=== PATIENT | female | born 1985 | race Caucasian/White ===

== ENCOUNTER → 2018-02-20 09:43 | Outpatient (CLI) | payer OTHER, SELFPAY ==
[2018-02-20 10:08] LABS: Hematocrit 40.4 % (37-47); Hemoglobin 13.5 g/dl (12.0-15.0); Mean Corp Hgb Conc 33.4 g/gl (32-36); Mean Corpuscular Hgb 30.7 pg (27.0-32.0); Mean Corpuscular Volume 91.8 fL (81-99); Mean Platelet Vol. 9.9 fl (6.2-12.0); Platelet Count 195 K/mm3 (150-450); RBC Distribution Width CV 12.4 % (11.6-14.6); White Blood Count 6.5 K/mm3 (4.4-11.0)
[2018-02-20 10:10] LABS: Scan Indicated on CBC? Y/N NO
[2018-02-20 10:52] LABS: AST(SGOT) 19 U/L (15-37); Alanine Aminotransfer ALT/SGPT 21 U/L (13-56); Albumin, Serum 4.2 g/dL (3.2-5.0); Alkaline Phosphatase 72 U/L (45-117); Anion Gap 8 (5-15); BUN 10 mg/dL (7-18); BUN/Creat Ratio 12.3 RATIO (10-20); Calcium,Total 9.2 mg/dL (8.5-10.1); Chloride 108 mmol/L (98-107); Creatinine, Serum 0.81 mg/dL (0.55-1.02); EST Glomerular Filtration Rate 86 mL/min (>60); Est Glom Filt Rate - Afr Amer 104 mL/min (>60); Glucose 76 mg/dL (74-106); Magnesium 2.2 mg/dL (1.6-2.6); Phosphorus 3.6 mg/dL (2.5-4.9); Potassium 4.4 mmol/L (3.5-5.1); Protein, Total 8.2 g/dL (6.4-8.2); Sodium Level 141 mmol/L (136-145)
== END ==
PROVIDERS: Visit Provider Nurse Practitioner Acute Care
DX: R52 Pain, unspecified (principal); R82.99 Other abnormal findings in urine
CPT/HCPCS: 36415; 80053; 82140; 83735; 84100; 85027

== ENCOUNTER 2018-05-26 13:00 | Outpatient (RCR) | payer OTHER, SELFPAY ==
--- NOTE | 2018-06-04 14:37 | HP.PTEVAL ---
Patient's Visit Information JAMMIE GONZALEZ is a 32 year old F referred to Physical Therapy by PABLO Saunders with a diagnosis of Migrains. Date of Evaluation: 04/23/18 Physical Therapist: Aneesh Oliver - Visit Plan Frequency: 1-2x /Week Duration: 4-6 Weeks Plan: Start with postural education, DN to cervical spine and levator scapulea, cervical retraction, manual PT. Progress to postural stability exercises as tolerated. - Subjective Subjective: Pt. is here today for her initial evaluation with diagnosis of migrains. Pt. reports having migrains for years. She has relief with some medications, but does not take her symptoms away. Pt. reports living a highly stressful lfie with her kids and is now taking care of her sister in laws children as she is in assisted. Pt. reprots having migrains ~5 per month, but has even more frequent HAs. SHe reports pain is usually temporal and at anterior aspect of forehead. Pt. has not trialed any exercises for her symptoms. Pt. reports no neck or shoulder pain currently. Pt. does not have double or blurred vision. Pt. is hopeful to reduce symptoms in order to get back to taking care of her children without limitations. - Pain BARTH Pain Intensity (Out of 10): 8 Pain Intensity Range: 0, 8 Comment: Temporalis region on L side - Objective POSTURE: Pt. has rounded shoulders, FH posture. increased lower cervical flexion, upper cervical extension. PALPATION: Pt. has increased tenderness at bilatearl suboccipital muscles, bilateral levator scapulea, and bilateral cervical erector spine. Pt. has pain along cervicogenic BARTH patterns. NEURO: all intact no issues. Normal DTR bilateral UEs. ROM: CERVICAL SPINE: flexion nil loss increase NW, ext min loss increase NW, rotation nil loss NE, SB nil loss NE. B SHOULDERS: full motions without increase in symptoms. MMT: Pt. has full strength without increase in symptoms of B UEs. Pt. has 5/5 cervical isometrics. - Special Tests C/S Radiculapathy - Left Spurlings: Negative C/S Radiculapathy - Right Spurlings: Negative C/S Radiculapathy - Left Cervical distraction: Negative C/S Radiculapathy - Right Cervical distraction: Negative C/S Radiculapathy - Left Relief test: Positive C/S Radiculapathy - Right Relief test: Positive Sharp Radha: Negative Vertebral Artery Test: Negative Alar Ligament Test: Negative - Goals Goal 1:: Pt. to be I with HEP. Goal Time Frame: 4-6 Weeks Goal 2:: Pt. to have decreased frequency of BARTH to x1-2 per week. Goal Time Frame: 4-6 Weeks Goal 3:: Pt. to have reduced intensity of BARTH to less than 3/10. Goal Time Frame: 4-6 Weeks Goal 4:: Pt. to dmeonstrate improved posture throughout PT session indicating increased postural awareness. - Rehabilitation Potential Physical Therapy Diagnosis: Pt. has signs and symptoms consistent with migrains possible from poor posture, suboccipital tightness resulting in cervicogenic symptoms. Pt. has increased lower cervical flexion, upper cervical extension and would benefit from muscle tension reduction, and suboccipital tightness in order to reduce BARTH symptoms. Rehabilitation Potential: Good - Anticipated Interventions Patient/Client Instruction: Educate patient on: Condition, Plan of Care, Risk Factors, Benefits of Fitness Program For the Purpose of:: To reduce risk of recurrence, To improve safety, To improve health and function, To foster healthy habits, To improve self management, To improve ability to perform tasks related to life management Therapeutic Exercise to Include: Strength training, Power training, Body mechanics, Postural training, Flexibilty training, Passive ROM, Active ROM, Scapular Strength/Stabilization For the Purpose of:: To decrease pain, To decrease swelling/inflammation, To increase ROM, To improve muscle performance and motor function, To improve gait and locomotor functions, To improve health of tissue, To decrease soft tissue restriction, To increase flexibility/ROM Manual Therapy Techniques to Include: Trigger point massage, Mobilization, Passive ROM, Functional dry needling, Soft tissue mobilization For the Purpose of:: To decrease pain, To decrease swelling/inflammation, To increase ROM, To improve nutrient delivery to tissue, To improve health of tissue, To decrease soft tissue restriction, To increase flexibility/ROM Thank you for the opportunity to evaluate your patient. For Medicare and Medicare HMO plans, please review the plan of care and approve it. It will need to be FAXED BACK to us at [phone] for Medicare purposes. Please let me know if there are questions or concerns regarding this plan of care. Physician Signature: Date:
--- NOTE | 2018-10-20 17:10 | HP.PT.NRP ---
HP - Discharge Summary (1) - Patient Information JAMMIE GONZALEZ was seen in my office for initial evaluation on 04/23/18. The following Plan of Care was established for this patient: Initial Frequency: 1-2x /Week Initial Duration: 4-6 Weeks - Anticipated Interventions Patient/Client Instruction: Educate patient on: Condition, Plan of Care, Risk Factors, Benefits of Fitness Program For the Purpose of:: To reduce risk of recurrence, To improve safety, To improve health and function, To foster healthy habits, To improve self management, To improve ability to perform tasks related to life management Therapeutic Exercise to Include: Strength training, Power training, Body mechanics, Postural training, Flexibilty training, Passive ROM, Active ROM, Scapular Strength/Stabilization For the Purpose of:: To decrease pain, To decrease swelling/inflammation, To increase ROM, To improve muscle performance and motor function, To improve gait and locomotor functions, To improve health of tissue, To decrease soft tissue restriction, To increase flexibility/ROM Manual Therapy Techniques to Include: Trigger point massage, Mobilization, Passive ROM, Functional dry needling, Soft tissue mobilization For the Purpose of:: To decrease pain, To decrease swelling/inflammation, To increase ROM, To improve nutrient delivery to tissue, To improve health of tissue, To decrease soft tissue restriction, To increase flexibility/ROM This patient was last seen in our office 05/26/18. Pertinent comments regarding their Physical therapy will appear below: Pt. was seen for her migraines. Pt. was treated with DN and postural exercises. Pt. reports making gains, but has not been back to PT in ~4 months. Pt. will be DC from PT at this point in time. At this point I will be discontinuing this patient from physical therapy. I would be happy to see this patient again in the future if found appropriate by the physician. Thank you! Aneesh Oliver, ESTEBAN
== END 2018-05-26 19:00 | disposition home or self-care (01) ==
LOC: PT 13:00
PROVIDERS: Family Provider Family Medicine; PCP Family Medicine; Visit Provider Nurse Practitioner Acute Care
DX: G43.909 Migraine, unspecified, not intractable, without status migrainosus (principal)
CPT/HCPCS: 97110; 97140; 97162

== ENCOUNTER → 2018-08-18 14:30 | Outpatient (CLI) | payer OTHER, SELFPAY ==
[2018-08-24 16:09] LABS: HPV HC, High Risk Negative (Negative)
== END ==
PROVIDERS: Referring Provider Obstetrics & Gynecology; Visit Provider Obstetrics & Gynecology
DX: Z12.4 Encounter for screening for malignant neoplasm of cervix (principal)
CPT/HCPCS: 87624; 88175; G0145

== ENCOUNTER → 2018-10-12 11:53 | Outpatient (CLI) | payer SELFPAY ==
--- NOTE | 2018-10-12 11:59 | BI_ITS ---
MAMMOGRAPHY - BILATERAL SCREENING REASON FOR EXAM: Female, 32 years old. Routine annual screening examination. PERTINENT HISTORY: Grandmother with breast cancer. Aunt with breast cancer. TECHNIQUE: Digital bilateral breast cuca (3D mammographic acquisition) in the CC and MLO projections. 2-D mediolateral oblique (MLO) and craniocaudad (CC) views of both breasts were obtained. CAD: Full Field Digital Mammography with Computer Added Detection was performed. COMPARISON: Comparison is made with prior examination dated March 30, 2013. FINDINGS: Breast Composition: The breasts are extremely dense, which lowers the sensitivity of mammography. There are no dominant masses or suspicious calcifications. No other significant abnormalities are identified. There has been no significant change since the prior study. BI/SCREEN MAMM (CAD) W/CUCA BILAT IMPRESSION: Stable bilateral screening mammogram. Yearly follow-up mammogram recommended. (A) ASSESSMENT CATEGORY: BIRADS Category 1: Negative. A letter regarding these results will be sent to the patient by the facility within 30 days. Approximately 10% of breast cancers are not detected by mammography. A normal mammogram should not delay biopsy of a clinically suspicious abnormality. [id number] Electronically Signed: Eligio Wolf MD at 8:25 EST Tel [phone], Service support ,
== END ==
PROVIDERS: Family Provider Family Medicine; PCP Family Medicine; Referring Provider Obstetrics & Gynecology; Visit Provider Obstetrics & Gynecology
DX: Z12.31 Encounter for screening mammogram for malignant neoplasm of breast (principal)
CPT/HCPCS: 77063; 77067

== ENCOUNTER → 2019-11-10 08:14 | Outpatient (CLI) | payer BC, SELFPAY ==
--- NOTE | 2019-11-10 08:16 | BI_ITS ---
MAMMOGRAPHY - BILATERAL SCREENING REASON FOR EXAM: Female, 33 years old. Routine annual screening examination. PERTINENT HISTORY: Grandmother with breast cancer. Aunt with breast cancer. TECHNIQUE: Digital bilateral breast cuca (3D mammographic acquisition) in the CC and MLO projections. 2-D mediolateral oblique (MLO) and craniocaudad (CC) views of both breasts were obtained. CAD: Full Field Digital Mammography with Computer Added Detection was performed. COMPARISON: Comparison is made with prior examination dated October 12, 2018. FINDINGS: Breast Composition: The breasts are extremely dense, which lowers the sensitivity of mammography. There are no dominant masses or suspicious calcifications. No other significant abnormalities are identified. There has been no significant change since the prior study. BI/SCREEN MAMM (CAD) W/CUCA BILAT IMPRESSION: Stable bilateral screening mammogram. Yearly follow-up mammogram recommended. (A) ASSESSMENT CATEGORY: BIRADS Category 1: Negative. A letter regarding these results will be sent to the patient by the facility within 30 days. Approximately 10% of breast cancers are not detected by mammography. A normal mammogram should not delay biopsy of a clinically suspicious abnormality. [id number] Electronically Signed: Eligio Wolf, at 10:04 EST , Service support ,
== END ==
PROVIDERS: PCP Family Medicine; Referring Provider Obstetrics & Gynecology; Visit Provider Obstetrics & Gynecology
DX: Z12.31 Encounter for screening mammogram for malignant neoplasm of breast (principal)
CPT/HCPCS: 77063; 77067

== ENCOUNTER → 2020-11-10 11:42 | Outpatient (CLI) | payer BC, SELFPAY ==
[2020-11-10 15:57] LABS: HIV - WCH Non-Reactive (Nonreactive); Hepatitis C Antibody Non-Reactive (Nonreactive)
[2020-11-13 20:07] LABS: Chlamydia By Nucleic Acid AMP Negative (Negative)
[2020-11-13 21:17] LABS: Gonococcus By Nucleic Acid AMP Negative (Negative)
[2020-11-16 01:10] LABS: Rapid Plasmin Reagin (RPR) NONREACTIVE (NONREACTIVE)
[2020-11-16 20:10] LABS: HPV Genotype 16, Aptima Negative (Negative)
[2020-11-17 10:53] LABS: HPV APTIMA, High Risk Positive (Negative); HPV Genotype 18,45 Aptima Negative (Negative)
== END ==
PROVIDERS: PCP Family Medicine; Visit Provider Student in an Organized Health Care Education/Training Program
DX: Z11.3 Encounter for screening for infections with a predominantly sexual mode of transmission (principal); Z12.4 Encounter for screening for malignant neoplasm of cervix
CPT/HCPCS: 36415; 86592; 86703; 86803; 87491; 87591; 87624; 88175; G0145

== ENCOUNTER → 2020-12-12 08:40 | Outpatient (CLI) | payer BC, SELFPAY ==
[2020-12-12 10:14] LABS: Absolute Lymphocyte Count 1.26 X10^3/uL (0.83-4.51); Absolute Neutrophil Count 5.5 X10^3/uL (2.0-7.7); Basophil# 0.02 X10^3/uL; Basophil% 0.3 % (0-1); Eosinophil# 0.07 X10^3/uL; Eosinophils% 0.9 % (0-5); Hematocrit 42.3 % (37-47); Hemoglobin 13.7 g/dL (12.0-15.0); Lymphocyte # 1.26 X10^3/ul (4.0); Lymphocyte % 17.1 % (19-41); Mean Corp Hgb Conc 32.4 g/dL (32-36); Mean Corpuscular Hgb 31.1 pg (27.0-32.0); Mean Corpuscular Volume 95.9 fL (81-99); Mean Platelet Vol. 10.4 fl (6.2-12.0); Monocyte# 0.49 X10^3/uL; Monocyte% 6.6 % (0-10); NRBC Flagged by Analyzer 0 % (0-5); Neutrophil # 5.52 X10^3/uL (2.7-7.7); Neutrophil % 74.8 % (47-70); Platelet Count 200 K/mm3 (150-450); RBC Distribution Width CV 13.2 % (11.6-14.6); RBC Distribution Width SD 46.5 fl (35.1-43.9); Red Blood Count 4.41 M/mm3 (4.2-5.4); White Blood Count 7.4 K/mm3 (4.4-11.0)
[2020-12-12 10:56] LABS: Cholesterol 233 mg/dL (200); High Density Lipoprotein 52 mg/dL; Thyroid Stim Hormone (TSH) 2.32 uIU/mL (0.358-3.74); Triglycerides 128 mg/dL; Very Low Density Lipoprotein 26 mg/dL (5-40)
== END ==
LOC: LAB 08:45 → MTLAB 08:46
PROVIDERS: PCP Family Medicine; Referring Provider Family Medicine; Visit Provider Family Medicine
DX: E78.5 Hyperlipidemia, unspecified (principal); E28.2 Polycystic ovarian syndrome; R53.83 Other fatigue
CPT/HCPCS: 36415; 80061; 84443; 85025

== ENCOUNTER 2021-12-14 15:59 | Outpatient (CLI) | payer BC, SELFPAY ==
[2021-12-14 17:11] LABS: Amphetamine Urine VISTA NEGATIVE (<1000 ng/mL); Barbiturate Urine VISTA NEGATIVE (< 200 ng/mL); Benzodiazepine Urine VISTA NEGATIVE (< 200 ng/mL); Cocaine Urine VISTA NEGATIVE (< 300 ng/mL); Ecstacy Urine VISTA NEGATIVE (< 500 ng/mL); Methadone Urine VISTA NEGATIVE (< 300 ng/mL); PCP Urine VISTA NEGATIVE (< 25 ng/mL); THC Urine VISTA NEGATIVE (< 50 ng/mL); Vista UDS pH Range 7
== END 2021-12-14 23:59 | disposition home or self-care (01) ==
PROVIDERS: PCP Family Medicine; Visit Provider Internal Medicine Pulmonary Disease
DX: G47.10 Hypersomnia, unspecified (principal)
CPT/HCPCS: 36415; 80307

== ENCOUNTER → 2022-12-20 | Outpatient (CLI) | payer OTHER, SELFPAY ==
[2022-12-30 21:06] LABS: HPV Genotype 16, Aptima Negative (Negative)
[2022-12-31 11:08] LABS: HPV APTIMA, High Risk Positive (Negative); HPV Genotype 18,45 Aptima Negative (Negative)
== END | disposition home or self-care (01) ==
LOC: LABSPEC 13:51
PROVIDERS: PCP Family Medicine; Visit Provider Student in an Organized Health Care Education/Training Program
DX: Z12.4 Encounter for screening for malignant neoplasm of cervix (principal)
CPT/HCPCS: 87624; 88175; G0145

== ENCOUNTER → 2023-01-13 | Outpatient (CLI) | payer OTHER, SELFPAY ==
--- NOTE | 2023-01-13 | IMM_PTH ---
PATIENT: JAMMIE GONZALEZ LOC: [facility] U#:[id number] AGE/SX: 37/F ROOM: RE01/13/[address]: Dr. Glenna Mauro DO : 1985 BED: DIS: 01/13/2023 SPEC #: [id number] RECD: 01/15/23 13:32 STATUS: MUNIR REQ #: [id number] MINISTERIO: 01/13/23 00:[address]: Glenna Mauro DEPT: IMMUNOHISTOCHEMISTRY RECD BY: Gisela Worley ENTERED: 01/15/23 13:33 SP TYPE: IMMUNO OTHR DR: Dr. Luisa Spangler MD Tissues: A - Uterine cervix, NOS Procedures: p16 (initial) KI-67 (add) PHYSICIAN & INSTITUTION [place] [place] [id number] SPECIMEN INFORMATION: Tissue Source: A ? Cervix 4, 6 & 8 o?clock Clinical Info: +HPV, HR Specimen Number: [id number] CPT code: 71338, 98644 METHODOLOGY: Deparaffinized sections of prefer/formalin-fixed tissue or PAP/DQ stained slides are incubated with monoclonal/polyclonal antibodies/oligonucleotide probes. Localization is made via biotin free immunoperoxidase method. Appropriate controls are performed and reacted as expected. Results on target cell population are indicated in the following table: RESULTS: ANTIBODY / CLONE RESULT Block A P16 (E6H4) positive, focal block staining Ki-67 (30-9) positive, moderate These tests were developed and their performance characteristics determined by [facility]. They may not have been cleared or approved by the U.S. Food and Drug Administration. The FDA has determined that such clearance or approval is not necessary. The above immunohistochemical/dualISH markers are ordered and reviewed by the Pathologist. INTERPRETATION: A. Cervix 4, 6 & 8 o?clock, biopsy: Mild to moderate squamous dysplasia. SJ:ileana 01/16/2023
--- NOTE | 2023-01-13 14:45 | CER_PTH ---
PATIENT: JAMMIE GONZALEZ [id number] AGE/SX: 37/F ROOM: RE01/13/[address]: Dr. Glenna Mauro DO : 1985 BED: DIS: 01/13/2023 SPEC #: [id number] RECD: 01/13/23 15:42 STATUS: MUNIR YOON #: [id number] MINISTERIO: 01/13/23 14:[address]: Glenna Mauro DEPT: SURGICAL PATHOLOGY RECD BY: Roxanne Cobian ENTERED: 01/14/23 09:34 SP TYPE: CERV OTHR DR: Dr. Luisa Spangler MD Tissues: A - Uterine cervix, NOS B - Endocervical Procedures: Surgery Specimen Level IV HEADER OPERATION: Colposcopy PRE-OP DIAGNOSIS: +HPV, HR R87.810 TISSUE SUBMITTED: A ? Cervix 4, 6, 8 o?clock, B - ECC MICROSCOPIC DIAGNOSIS A. 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 Chronic inflammation. See comment. B. ECC: Fragments of benign endocervical epithelium and desquamated benign squamous epithelial cells, Negative for dysplasia. ARAVIND:ileana 01/15/2023 COMMENT A. Immunohistochemistry ([id number]) for surrogate HPV marker (p16) supports the above diagnosis. MICROSCOPIC DESCRIPTION Slides are reviewed. GROSS DESCRIPTION A - Received in fixative is one container labeled with the patient's name and designated 4, 6 and 8 o'clock. The specimen consists of multiple irregular fragments of light koenig soft tissue that in aggregate measure 1.5 x 0.3 x 0.1 cm. The specimen is totally submitted in one cassette. B - Received in fixative is one container labeled with the patient's name and designated ECC. The specimen consists of a scant amount of soft tissue. The specimen is totally submitted for cell block preparation. / ARAVIND:ileana 01/14/2023 TC:5 CPT: 88888 x2
== END | disposition home or self-care (01) ==
LOC: LABSPEC 15:15
PROVIDERS: PCP Family Medicine; Visit Provider Student in an Organized Health Care Education/Training Program
DX: N87.1 Moderate cervical dysplasia (principal)
CPT/HCPCS: 88305; 88341; 88342

== ENCOUNTER 2023-03-20 11:19 | Day surgery (SDC) | payer OTHER, SELFPAY ==
[2023-03-20] VITALS (7 sets, daily range): BP systolic 99–111; BP diastolic 64–69; PULSE 52–67; RESP 16–18; TEMP 36.6–36.9; O2SAT 95–100; BMI 29.0
--- NOTE | 2023-03-20 | IMM_PTH ---
PATIENT: JAMMIE GONZALEZ [place] [facility] [place][id number] AGE/SX: 37/F ROOM: RE03/20/[address]: Dr. Glenna Mauro DO : 1985 BED: DIS: 03/20/2023 SPEC #: [id number] RECD: 03/21/23 13:17 STATUS: MUNIR REFer #: [id number] MINISTERIO: 03/20/23 00:[address]: Glenna Mauro DEPT: IMMUNOHISTOCHEMISTRY RECD BY: Gisela Worley ENTERED: 03/21/23 13:18 SP TYPE: IMMUNO OTHR DR: Dr. Kristen Chavez MD Tissues: A - UTERINE CERVIX LEEP B - UTERINE CERVIX LEEP Procedures: p16 (initial) KI-67 (add) P16 (add) PHYSICIAN & INSTITUTION [place] [id number] SPECIMEN INFORMATION: Tissue Source: A ? Anterior cervix, B ? Posterior cervix Clinical Info: Cervical dysplasia Specimen Number: [id number] A1, A2 & B CPT code: 84572 x2, 69275 x4 METHODOLOGY: Deparaffinized sections of prefer/formalin-fixed tissue or PAP/DQ stained slides are incubated with monoclonal/polyclonal antibodies/oligonucleotide probes. Localization is made via biotin free immunoperoxidase method. Appropriate controls are performed and reacted as expected. Results on target cell population are indicated in the following table: RESULTS: ANTIBODY / CLONE RESULT Block A1 P16 (E6H4) positive, focal, patchy Ki-67 (30-9) positive, low Block A2 P16 (E6H4) positive, focal, patchy Ki-67 (30-9) positive, low Block B P16 (E6H4) positive, focal, patchy Ki-67 (30-9) positive, low These tests were developed and their performance characteristics determined by [facility]. They may not have been cleared or approved by the U.S. Food and Drug Administration. The FDA has determined that such clearance or approval is not necessary. The above immunohistochemical/dualISH markers are ordered and reviewed by the Pathologist. INTERPRETATION: A. Anterior cervix, LEEP conization: Focal HPV change present. B. Posterior cervix, LEEP conization: Focal HPV change present. AM:ileana 03/24/2023
--- NOTE | 2023-03-20 10:04 | PCM.HP.BLA ---
History and Physical Date of Admission: 03/20/23 HPI: 37-year-old female with moderate cervical dysplasia plan for loop electrical excisional procedure. Denies headache or vision changes, chest pain or shortness of breath, nausea or vomiting, diarrhea constipation, fevers or chills. HEAD LIBRARIAN history: G3, P2 spontaneous vaginal deliveries Medical history: 1.? Obstructive sleep apnea 2. Anxiety, depression Medications: 1.? Aripiprazole 2. Multivitamin 3. Prozac 4. Vyvanse Surgical history: 1.? Hysteroscopy, dilation and curettage 2. Cholecystectomy 3. Carpal tunnel release on the right 4. Tonsillectomy Family history: No history of blood clots or bleeding disorders, noncontributory Social history: Denies tobacco, alcohol, drug use. Reports former tobacco use. Allergies: NKDA Review of system: Negative otherwise stated above Physical exam Vital signs: pending General: No acute distress HEENT: Normal cephalic/atraumatic, PERRLA Cardiorespiratory: No increased effort, regular rate and rhythm, clear to auscultation bilaterally Abdomen: Soft, nontender Extremity: No edema Neurologic: Cranial nerves II through XII grossly intact, no focal deficits Musculoskeletal: Moves all extremities equally Assessment and plan: 37-year-old female with moderate cervical dysplasia plan for loop electrical excisional procedure. All risk, benefits, alternatives discussed with the patient.? Risk include but are not limited to: Risk of bleeding the point transfusion, infection, injury to surrounding tissue including bowel/bladder requiring prolonged Flores catheter use/major abdominal vessels, VTE, ICU admission.? Patient aware and consented.
--- NOTE | 2023-03-20 10:05 | OP.PCM_ITS ---
Report of Operation Date of Procedure: 03/20/23
--- NOTE | 2023-03-20 10:05 | PCM.OPRPT ---
Report of Operation Date of Procedure: 03/20/23 Pre-Operative Diagnosis: Moderate cervical dysplasia Post-Operative Diagnosis: Moderate cervical dysplasia Surgery/Procedure Performed:: Loop electrical excisional procedure Description of Surgical Findings:: Normal-appearing external genitalia. Minimal uterine descensus. Lugol staining entire cervix. Surgeon: Glenna Mauro Type of Anesthesia: MAC Specimen's removed: Anterior cervix, posterior cervix, endocervix Estimated Blood Loss (mL): 5 cc Fluids Replaced: 600cc Description of Procedure: Indication/risk/benefits: This is a 37-year-old female with moderate cervical dysplasia plan for loop electrical excisional procedure. All risk, benefits, alternatives discussed with patient. Risk include but are not limited to: Risk of bleeding when transfusion, infection, injury to surrounding tissue, VTE, ICU admission. Patient aware and consented. Procedure: Patient taken to the operating room and MAC anesthesia induced. Patient placed in the dorsal lithotomy position prepped and draped in the usual sterile fashion. Coated speculum placed in the vagina and cervix gained with Lugol's solution. Medium loop utilized. Anterior cervix removed, followed by posterior, followed by endocervix. Biopsy bed cauterized. Hemostatic. Monsel's placed. Coated speculum removed. At the end the procedure all needle, lap, sponge counts were correct. Urine output: None measured Complications None
[2023-03-20 11:51] LABS: Internal QC Validated? YES +Cl - CLEAR BKGD; Pregnancy, Urine Negative Negative
[2023-03-20] MEDS: Lactated Ringers 1,000 ML 15 ML IV (12:09)
[2023-03-20 12:38] LABS: Hematocrit 41.1 % (37-47); Mean Corp Hgb Conc 34.1 g/dL (32-36); Mean Corpuscular Hgb 31.5 pg (27.0-32.0); Mean Corpuscular Volume 92.6 fL (81-99); Mean Platelet Vol. 9.8 fl (6.2-12.0); Platelet Count 254 K/mm3 (150-450); RBC Distribution Width CV 13.2 % (11.6-14.6); RBC Distribution Width SD 45.1 fl (35.1-43.9); Red Blood Count 4.44 M/mm3 (4.2-5.4); White Blood Count 8.1 K/mm3 (4.4-11.0)
--- NOTE | 2023-03-20 12:50 | CONE_PTH ---
PATIENT: JAMMIE GONZALEZ LOC: [facility] [place] U#:[id number] AGE/SX: 37/F ROOM: RE03/20/[address]: Dr. Glenna Mauro DO : 1985 BED: DIS: 03/20/2023 SPEC #: [id number] RECD: 03/20/23 13:57 STATUS: MUNIR YOON #: [id number] MINISTERIO: 03/20/23 12:[address]: Glenna Mauro DEPT: SURGICAL PATHOLOGY RECD BY: Roxanne Cobian ENTERED: 03/20/23 14:04 SP TYPE: Leep Cone PANCHITO DR: Dr. Kristen Chavez MD Tissues: A - UTERINE CERVIX LEEP B - UTERINE CERVIX LEEP C - UTERINE CERVIX LEEP Procedures: Surgery Specimen Level V HEADER OPERATION: LEEP cone PRE-OP DIAGNOSIS: Cervical dysplasia TISSUE SUBMITTED: A ? Anterior cervix, B ? Posterior cervix, C - Endocervix MICROSCOPIC DIAGNOSIS A. Anterior cervix, LEEP conization: Focal HPV change present. See comment. B. Posterior cervix, LEEP conization: Focal HPV change suspected. See comment. C. Endocervix, LEEP conization: Fragments of benign endocervix. AM:ileana 03/21/2023 COMMENT A & B. Results from immunohistochemistry ([id number]) for surrogate HPV marker (p16) will be reported separately. MICROSCOPIC DESCRIPTION Slides are reviewed. GROSS DESCRIPTION A - Received in fixative is one container labeled with the patient's name and designated anterior cervix. The specimen consists of two irregular fragments of glistening koenig soft tissue ranging in size from 0.7 to 1.3 cm. No mucosal mass lesions are identified. The fragments are inked, serially sectioned and totally submitted in two cassettes. B - Received in fixative is one container labeled with the patient's name and designated posterior cervix. The specimen consists of two irregular fragments of glistening koenig soft tissue ranging in size from 0.8 to 1.5 cm. No mucosal mass lesions are identified. The fragments are inked, serially sectioned and totally submitted in one cassette. C - Received in fixative is one container labeled with the patient's name and designated endocervix. The specimen consists of an irregular fragment of koenig tissue measuring 1.3 x 1.0 x 0.2 cm. The specimen is inked, serially sectioned and totally submitted in one cassette. / AM:ileana 03/20/2023 TC:5 CPT: 09159 x3
[2023-03-20] MEDS: FERRIC SUBSULFATE 8 GM SOLN (12:55)
--- NOTE | 2023-03-20 13:03 | DCINST_ITS ---
Discharge Instructions Diet Discharge Diet: No restrictions Activity Discharge Activity: Return to Normal Activity and May Shower May resume sexual activity in: 2 weeks Weight Bearing Status: Weight bearing as tolerated Lifting Restrictions: None Dressing / Incision Call your doctor if you observe: Fever of 101 or Higher, Change in Color, Inability to urinate, Using more than 1 pad per hour, Shortness of breath, Dizziness, Swelling in the ankles, Chest pain and Calf discomfort Follow Up Care Please Follow Up With: Glenna Mauro DO When: 1-2 week postoperative visit Test Results: Test results from this visit will be discussed in further detail at your follow- up appointment, if applicable. Discharge Plan Admission Primary Reason for Your Visit: LEE Attending Provider: Glenna Mauro Primary Care Provider: Kristen Chavez Discharge Orders/Prescriptions Prescriptions: No Action multivitamin Tablet 1 tab PO DAILY fluoxetine 20 mg capsule 40 mg PO QHS Label Comments: TAKE 2 CAPSULES BY MOUTH NIGHTLY aripiprazole 15 mg tablet 15 mg PO QHS Label Comments: TAKE 1 TABLET BY MOUTH ONCE DAILY Vyvanse 70 mg capsule 70 mg PO DAILY Label Comments: TAKE 1 CAPSULE BY MOUTH ONCE DAILY Probiotic 10 billion cell Capsule 10,000 mmu cells PO DAILY Referrals / Follow Up: Kristen Chavez MD [Primary Care Provider] - Disposition Disposition (needs filled in before D/C Order can be placed): Home, Self Care
== END 2023-03-20 14:36 | disposition home or self-care (01) ==
LOC: SDC 11:23 → AC 11:26
PROVIDERS: Anesthesiology; PCP Internal Medicine; Referring Provider Student in an Organized Health Care Education/Training Program; Visit Provider Student in an Organized Health Care Education/Training Program
PROC: 0UBC7ZZ Excision of Cervix, Via Natural or Artificial Opening (ICD-10-PCS; CPT 57522; principal; 2023-03-20 12:35)
DX: N87.1 Moderate cervical dysplasia (principal); G47.33 Obstructive sleep apnea (adult) (pediatric); F41.9 Anxiety disorder, unspecified; F32.A Depression, unspecified; Z79.899 Other long term (current) drug therapy; Z87.891 Personal history of nicotine dependence
CPT/HCPCS: 57522; 00940; 81025; 85027; 86850; 86900; 86901; 88307; 88341; 88342; J7120; J2405

== ENCOUNTER → 2023-03-27 | Outpatient (CLI) | payer OTHER, SELFPAY ==
[2023-03-27 10:25] LABS: Amphetamine Urine VISTA POSITIVE (<1000 ng/mL); Barbiturate Urine VISTA NEGATIVE (< 200 ng/mL); Benzodiazepine Urine VISTA NEGATIVE (< 200 ng/mL); Cocaine Urine VISTA NEGATIVE (< 300 ng/mL); Ecstacy Urine VISTA NEGATIVE (< 500 ng/mL); Methadone Urine VISTA NEGATIVE (< 300 ng/mL); PCP Urine VISTA NEGATIVE (< 25 ng/mL); THC Urine VISTA NEGATIVE (< 50 ng/mL); Vista UDS pH Range 5
--- NOTE | 2023-03-27 11:14 | SLEEP ---
Called diet order to Dietary and spoke with Marci. Explained this tech is unable to enter the diet order in [facility] d/t out of [facility] physician. Patient is able to have a regular diet (no caffeine) - patient is having apple juice and that meets the our policy requirements.
== END | disposition home or self-care (01) ==
PROVIDERS: PCP Internal Medicine
DX: G47.10 Hypersomnia, unspecified (principal); G47.33 Obstructive sleep apnea (adult) (pediatric); Z79.899 Other long term (current) drug therapy
CPT/HCPCS: 80307; 95805

== ENCOUNTER → 2023-06-16 | Outpatient (CLI) | payer BC, OTHER, SELFPAY ==
[2023-06-19 21:07] LABS: HPV APTIMA, High Risk Positive (Negative); HPV Genotype 16, Aptima Negative (Negative); HPV Genotype 18,45 Aptima Negative (Negative)
== END | disposition home or self-care (01) ==
LOC: LABSPEC 12:23
PROVIDERS: PCP Internal Medicine; Referring Provider Student in an Organized Health Care Education/Training Program; Visit Provider Student in an Organized Health Care Education/Training Program
DX: N87.1 Moderate cervical dysplasia (principal)
CPT/HCPCS: 87624; 88175; G0145

== ENCOUNTER → 2023-06-25 | Outpatient (CLI) | payer OTHER, BC, SELFPAY ==
--- NOTE | 2023-06-25 15:04 | ECHOD_ITS ---
Reason For Study: SOB Procedure This was a 2D Doppler, Color Flow transthoracic echocardiogram. Exam performed in department. Left Ventricle Normal LV size. Left ventricular systolic function is normal. The estimated ejection fraction is 60 %. Normal diastology for age. No regional wall motion abnormalities noted. Right Ventricle Normal RV size. Normal systolic function. Atria Normal left atrium. Normal right atrium. Mitral Valve Normal mitral valve. Tricuspid Valve Normal tricuspid valve. Aortic Valve Trisinus/trileaflet aortic valve. Pulmonic Valve Normal pulmonic valve. Great Vessels Normal aortic root. The pulmonary artery is normal size. Normal inferior vena cava. Pericardium/Pleural No pericardial effusion. MMode/2D Measurements & Calculations LVIDd: 4.2 cm IVSd: 0.92 cm Ao root diam: 2.2 cm LVIDs: 2.9 cm LVPWd: 0.97 cm FS: 30.8 % LAV(MOD-bp): 45.5 ml LVAd ap4: 26.8 cm2 SV(MOD-sp4): 48.9 ml LAV(MOD-bp) Indexed: 23.6 ml/m2 LVLd ap4: 7.9 cm LAV(MOD-sp2): 34.4 ml EDV(MOD-sp4): 75.8 ml LAV(MOD-sp4): 43.8 ml EDV(sp4-el): 77.3 ml LVAs ap4: 14.2 cm2 LVLs ap4: 6.4 cm ESV(MOD-sp4): 26.9 ml ESV(sp4-el): 27.0 ml EF(MOD-sp4): 64.5 % EF(sp4-el): 65.1 % SV(sp4-el): 50.3 ml LA A4 area: 17.1 cm2 LA dimension(2D): 3.6 cm RA A4 area: 11.2 cm2 TAPSE: 2.3 cm Time Measurements MV dec time: 0.20 sec Doppler Measurements & Calculations MV E max michel: 98.7 cm/sec Lat Peak E' Michel: 15.7 cm/sec Med Peak E' Michel: 10.9 cm/sec MV A max michel: 53.1 cm/sec E/E' lat: 6.3 E/E' med: 9.0 MV E/A: 1.9 MV V2 max: 93.8 cm/sec Ao V2 max: 133.1 cm/sec MV max P.5 mmHg MV dec slope: 502.5 cm/sec2 Ao max P.1 mmHg MV V2 mean: 58.0 cm/sec Ao V2 mean: 88.4 cm/sec MV mean P.5 mmHg Ao mean P.7 mmHg MV V2 VTI: 26.3 cm Ao V2 VTI: 28.4 cm AV (velocity ratio): 0.80 LV V1 max: 108.2 cm/sec MR max michel: 475.4 cm/sec PA V2 max: 108.1 cm/sec LV V1 max P.7 mmHg MR max P.4 mmHg PA V2 mean: 76.8 cm/sec LV V1 mean P.8 mmHg LV V1 mean: 79.2 cm/sec LV V1 VTI: 22.8 cm ECHO/Echo Complete Interpretation Summary Normal LV size. Left ventricular systolic function is normal. The estimated ejection fraction is 60 %. Normal diastology for age. Structurally normal valves. Ordering Physician: Migel Hebert Referring Physician: Migel Hebert Performed By: Jessenia Burch RCS
== END | disposition home or self-care (01) ==
PROVIDERS: PCP Internal Medicine; Referring Provider Internal Medicine Cardiovascular Disease; Visit Provider Internal Medicine Cardiovascular Disease
DX: R06.02 Shortness of breath (principal)
CPT/HCPCS: 93306

== ENCOUNTER → 2024-09-13 | Outpatient (CLI) | payer OTHER, SELFPAY | END | disposition home or self-care (01) | LOC: LABSPEC 15:41 | PROVIDERS: PCP Internal Medicine; Referring Provider Urology; Visit Provider Urology | DX: R31.21 Asymptomatic microscopic hematuria (principal) | CPT/HCPCS: 87086; 87088 ==

== ENCOUNTER → 2025-07-19 | Outpatient (CLI) | payer OTHER, SELFPAY ==
--- OUTSIDE RECORDS SUMMARY | 2025-07-19 16:07 | XMS RPT_ITS | CCD ---
Author Organization [facility] Care Team Providers Care Bread Supervisor Name Role Phone Rancho Vasquez Unavailable Unavailable PROVIDER, UNKNOWN Unavailable Unavailable Rhett Carreno Unavailable Unavailable Pedro, Jammie Primary Care Provider [phone] Unavailable Primary Care Provider UnavailDr. Kimberlee Acevedo Primary Care Provider Dr. Kimberlee Chavez Referring Provider Dr. Migel Hebert Attending Provider Loc GLEASON GEAR GENERATOR, PABLO Simpson Attending Provider Unavailable Primary Care Provider UnavailKimberlee Acevedo Primary Care Unavailable Arnulfo Rodriguez Referring Unavailable Arnulfo Rodriguez Attending Unavailable O'DEAR JERRY BELTRE Attending Unavailable EMILY SANA Attending Unavailable PEDRO, JAMMIE Referring Unavailable PEDRO, JAMMIE Primary Care Unavailable KAITY, VINICIUS Attending Unavailable PEDRO, JAMMIE Primary Care Unavailable KAITY, VINICIUS Attending Unavailable PEDRO, JAMMIE Primary Care Unavailable KAITY, VINICIUS Attending Unavailable PEDRO, JAMMIE Primary Care Unavailable EMILY, SANA Attending Unavailable PEDRO, JAMMIE Primary Care Unavailable KAITY, VINICIUS Attending Unavailable PEDRO, JAMMIE Primary Care Unavailable KAITY, VINICIUS Attending Unavailable PEDRO, JAMMIE Primary Care Unavailable EMILY, SANA Attending Unavailable PEDRO, JAMMIE Primary Care Unavailable EMILY, SANA Attending Unavailable PEDRO, JAMMIE Referring Unavailable PEDRO, JAMMIE Primary Care Unavailable BALAJI BETH Attending Unavailable BALAJI BETH Attending Unavailable MIGEL KING JR Attending Unavailable MIGEL KING JR Referring Unavailable KIMBERLEE CHAVEZ MD Consulting Unavailable KIMBERLEE CHAVEZ MD Primary Care Unavailable KIMBERLEE CHAVEZ MD Attending Unavailable DAWSONOUKIMBERLEE Watters MD Admitting Unavailable PROVIDER, UNKNOWN Consulting Unavailable PROVIDER, UNKNOWN Consulting Unavailable PROVIDER, UNKNOWN Consulting Unavailable JENNIFERRaudel SIERRA Primary Care Unavailable JENNIFERRaudel SIERRA Attending Unavailable JENNIFERRaudel FINA Admitting Unavailable KIMBERLEE CHAVEZ MD Consulting Unavailable LATOUKIMBERLEE Watters MD Primary Care Unavailable LATOUJanene, KIMBERLEE BELTRE Attending Unavailable LATOUJanene, KIMBERLEE BELTRE Admitting Unavailable PROVIDER, UNKNOWN Consulting Unavailable PROVIDER, UNKNOWN Consulting Unavailable PROVIDER, UNKNOWN Consulting Unavailable LATOUKIMBERLEE Watters MD Consulting Unavailable LATOUJanene, KIMBERLEE BELTRE Primary Care Unavailable LATOUF, KIMBERLEE BELTRE Attending Unavailable LATOUF, KIMBERLEE BELTRE Admitting Unavailable PROVIDER, UNKNOWN Consulting Unavailable PROVIDER, UNKNOWN Consulting Unavailable PROVIDER, UNKNOWN Consulting Unavailable KIMBERLEE CHAVEZ MD Consulting Unavailable MIGEL JAMESON Primary Care Unavailable MIGEL JAMESON Attending Unavailable MIGEL JAMESON Admitting Unavailable PROVIDER, UNKNOWN Consulting Unavailable PROVIDER, UNKNOWN Consulting Unavailable PROVIDER, UNKNOWN Consulting Unavailable KIMBERLEE CHAVEZ MD Consulting Unavailable KIMBERLEE CHAVEZ MD Primary Care Unavailable LATOUKIMBERLEE Watters MD Attending Unavailable LATOUJanene, KIMBERLEE BELTRE Admitting Unavailable PROVIDER, UNKNOWN Consulting Unavailable PROVIDER, UNKNOWN Consulting Unavailable PROVIDER, UNKNOWN Consulting Unavailable KIMBERLEE CHAVEZ MD Consulting Unavailable JENNIFERRaudel SIERRA Primary Care Unavailable JENNIFERRaudel SIERRA Attending Unavailable JENNIFERRaudel SIERRA Admitting Unavailable PROVIDER, UNKNOWN Consulting Unavailable PROVIDER, UNKNOWN Consulting Unavailable PROVIDER, UNKNOWN Consulting Unavailable Medications Current Medications Medication Drug Class(es) Dates Sig (Normalized) Sig (Original) ARIPiprazole 15 mg oral tablet (20 sources) Atypical Antipsychotic Start: 02-05-2024 take 1 tablet by mouth once daily ARIPiprazole (ABILIFY) 15 mg tablet Take 1 tablet by mouth once daily. 02/05/2024 Active Start: 03-13-2023 take 15 mg by mouth at bedtime Aripiprazole Active 15 MG PO AT BEDTIME March 13, 2023 12:00am Start: 10-21-2022 End: 04-09-2024 take 1 tablet by mouth once daily ARIPiprazole (ABILIFY) 5 mg tablet Take 1 tablet by mouth once daily. 0 10/21/2022 04/09/2024 Discontinued (Dosage adjustment) Comment on above: Take 1 tablet by helen th once daily. armodafinil 250 mg oral tablet (17 sources) Start: 10-11-2024 End: 07-04-2025 take 1 tablet by mouth once daily armodafinil (NUVIGIL) 250 mg tab Indications: Idiopathic hypersomnia , LORENA on CPAP Take 1 tablet by mouth once daily for 180 days. 90 tablet 1 01/05/2025 07/04/2025 Active Start: 09-01-2024 End: 11-30-2024 take 0.5 tablet by mouth twice daily armodafinil 200 mg tab Indications: Idiopathic hypersomnia Take 0.5 tablets by mouth two times a day for 90 days. 30 tablet 2 09/01/2024 10/11/2024 Discontinued Start: 04-09-2024 End: 10-20-2024 take 0.5 tablet by mouth once daily in the morning armodafinil 200 mg tab Indications: Idiopathic hypersomnia Take 0.5 tablets by mouth every morning for 90 days. 15 tablet 2 07/22/2024 09/01/2024 Discontinued Start: 05-14-2023 End: 06-04-2023 take 1 tablet by mouth once daily in the morning Armodafinil (Nuvigil) 250 mg tablet Discontinued 250 MG PO EVERY MORNING May 14, 2023 12:00am June 04, 2023 1:39pm End: 10-21-2022 armodafinil (NUVIGIL) 250 mg tab Take 125 mg by mouth as needed. 0 10/21/2022 Discontinued Armodafinil (NUV IGIL) 250 MG TABS Take by mouth as needed. 0 Active Comment on above: Take 125 mg by mouth as needed. atorvastatin 20 mg oral tablet (5 sources) HMG-CoA Reductase Inhibitor take 1 tablet by mouth once daily atorvastatin (LIPITOR) 20 mg tablet Take 20 mg by mouth once daily. Active cholecalciferol 1000 unt oral tablet (2 sources) Vitamin D take 1 tablet by mouth once daily Cholecalciferol (VITAMIN D3) 1000 units TABS tablet Take 1,000 Units by mouth daily. 0 Active CPAP/BIPAP/OTHER (20 sources) Start: 10-29-19 End: 03-15-20 50 CPAP/BIPAP/OTHER Indications: LORENA on CPAP Type .CPAPSettings into a note to see current settings/supplies/DME information. 1 Each 10/29/2022 03/15/2050 Active Start: 10-29-2022 End: 03-15-2050 CPAP/BIPAP/OTHER Indications : LORENA on CPAP Type .CPAPSettings into a note to see current settings/supplies/DME information. 1 Each 0 10/29/2022 03/15/2050 Active Start: 10-21-2022 End: 10-29-2022 CPAP/BIPAP/OTHER Type .CPAPS ettings into a note to see current settings/supplies/DME information. 1 Each 0 10/21/2022 10/29/2022 Discontinued (Duplicate Entry) Start: 10-21-2022 End: 03-07-2050 CPAP/BIPAP/OTHER Type .CPAPS ettings into a note to see current settings/supplies/DME information. 1 Each 0 10/21/2022 03/07/2050 Active Comment on above: Type .CPAPSettings i nto a note to see current settings/supplies/DME information. DULoxetine 60 mg delayed release oral capsule (4 sources) Serotonin and Norepinephrine Reuptake Inhibitor Start: End: take 1 capsule by mouth once daily DULoxetine (CYMBALTA) 60 MG capsule Indications: Severe recurrent major depression without psychotic features (HCC) Take 1 capsule by mouth daily. 30 capsule 2 10/27/2019 Active Start: 06-30-2019 End: 10-05-2019 take 1 capsule by mouth once daily DULoxetine (CYMBALTA) 60 MG capsule Indications: Severe recurrent major depression without psychotic features (HCC) Take 1 capsule by mouth daily. 30 capsule 2 06/30/2019 10/05/2019 Discontinued (Reorder) FLUoxetine 20 mg oral tablet (20 sources) Serotonin Reuptake Inhibitor Start: 05-14-2023 take 40 mg by mouth once daily Fluoxetine Active 40 MG PO DAILY May 14, 2023 12:00am Start: 03-13-2023 End: 05-14-2023 take 40 mg by mouth at bedtime Fluoxetine Discontinued 40 MG PO AT BEDTIME March 13, 2023 12:00am May 14, 2023 10:49am Start: 10-10-2021 take 4 capsules by m outh once daily FLUoxetine (PROZAC) 20 mg capsule Take 80 mg by mouth once daily. 10/10/2021 Active Start: 10-10-2021 FLUoxetine (AR OZAC) 20 mg capsule Take 40 mg by mouth. 0 10/10/2021 Active Comment on above: Take 40 mg by mouth. lactobacillus acidophilus [id number] unt oral capsule (6 sources) Start: take 10 capsules by mouth once daily Lactobacillus Acidophilus (Probiotic) 10 billion cell Capsule Active 06068 MMU CELLS PO DAILY March 13, 2023 12:00am Lactobacillus (P ROBIOTIC ACIDOPHILUS PO) Take by mouth daily. 0 Active lamoTRIgine 25 mg oral tablet (8 sources) Mood Stabilizer, Anti-epileptic Agent Start: 03-18-2024 take 1 tablet by mouth once daily lamoTRIgine (LAMICTAL) 25 mg tablet Take 25 mg by mouth once daily. 03/18/2024 Active Multivitamin preparation (4 sources) Start: 03-13-2023 take 1 tablet by mouth once daily Multivitamin Active 1 TABLET PO DAILY March 13, 2023 12:00am UNABLE TO FIND (2 sources) UNABLE TO FIND C PAP 0 Active Vit C-Cholecalciferol- Wallace Hip (VITAMIN C & D3/WALLACE HIPS PO) (2 sources) Vit F-Mcvdtyjxtvwwfaw-Z ose Hip (VITAMIN C & D3/WALLACE HIPS PO) Take by mouth. 0 Active vitamin b 12 0.5 mg oral tablet (2 sources) Vitamin B12 cyanocobalamin (VITAMIN B-12) 500 MCG tablet Take by mouth daily. 0 Active Completed/Discontinued Medications Medication Drug Class(es) Dates Sig (Normalized) Sig (Original) CPAP (20 sources) CPAP dextroamphetamine sulfate 5 mg oral tablet (14 sources) Central Nervous System Stimulant Start: 02-09-2024 End: 04-10-2024 take 1 tablet by mouth once daily dextroamphetamine sulfate (DEXEDRINE) 5 mg tablet Indications: Idiopathic hypersomnia Take 1 tablet by mouth once daily for 30 days. Take at approximately noon. Do not start before March 11, 2024. 30 tablet 0 03/11/2024 04/09/2024 Discontinued Start: 11-23-2023 End: 01-23-2024 take 1 tablet by mouth once daily dextroamphetamine sulfate (DEXEDRINE) 5 mg tablet Indications: Idiopathic hypersomnia Take 1 tablet by mouth once daily for 30 days. Do not start before December 24, 2023. 30 tablet 0 12/24/2023 01/23/2024 Active Comment on above: Take 1 tablet by helen th once daily for 30 days. Do not start before December 24, 2023. Take 1 tablet by helen th once daily for 30 days. Take at approximately noon. escitalopram 10 mg oral tablet (3 sources) Serotonin Reuptake Inhibitor Start: 05-14-20 End: 06-04-20 take 1 tablet by mouth once daily Escitalopram Oxalate (Lexapro) 10 mg tablet Discontinued 10 MG PO DAILY May 14, 2023 12:00am June 04, 2023 1:39pm End: 10-21-2022 take 1 tablet by mouth once daily escitalopram oxalate (LEXAPRO) 10 mg tablet Take 10 mg by mouth once daily. 0 10/21/2022 Discontinued Comment on above: Take 10 mg by mouth once daily. ISOtretinoin 20 mg oral capsule (3 sources) Retinoid Start: 05-14-2023 End: 06-04-2023 Isotretinoin Discontinued PO May 14, 2023 12:00am June 04, 2023 1:39pm Start: 08-28-2015 End: 10-21-2022 ISOTRETINOIN (ACCUTANE ORAL) Take by mouth once daily. 0 08/28/2015 10/21/2022 Discontinued Comment on above: Take by mouth once d aily. lisdexamfetamine dimesylate 70 mg oral capsule (4 sources) Central Nervous System Stimulant Start: 023 End: 023 take 1 capsule by mouth once daily Lisdexamfetamine (Vyvanse) 70 mg capsule Discontinued 70 MG PO DAILY March 13, 2023 12:00am June 04, 2023 1:38pm solriamfetol 150 mg oral tablet (14 sources) Start: 024 End: 025 take 1 tablet by mouth once daily in the morning solriamfetoL 150 mg tablet (SUNOSI) Indications: Idiopathic hypersomnia Take 1 tablet by mouth every morning for 180 days. 30 tablet 5 05/17/2024 10/11/2024 Discontinued Start: 10-30-2023 End: 01-28-2024 solriamfetol (SUNOSI) 75 mg tablet Indications: Idiopathic hypersomnia Take 1 tablet by mouth every morning for 90 days. Do not start before October 30, 2023. 30 tablet 2 10/30/2023 01/19/2024 Discontinued Comment on above: Take 1 tablet by helen th every morning for 90 days. Do not start before October 30, 2023. spironolactone 50 mg oral tablet (3 sources) Aldosterone Antagonist Start: 05-14-20 End: 06-04-20 take 50 mg by mouth once daily Spironolactone Discontinued 50 MG PO DAILY May 14, 2023 12:00am June 04, 2023 1:39pm End: 10-21-2022 take 1 tablet by mouth once daily spironolactone (ALDACTONE) 50 mg tablet Take 50 mg by mouth once daily. 0 10/21/2022 Discontinued Comment on above: Take 50 mg by mouth once daily. topiramate 25 mg oral tablet (6 sources) Start: 05-14-2023 End: 06-04-2023 take 1 tablet by mouth twice daily Topiramate (Topamax) 25 mg tablet Discontinued 25 MG PO TWICE A DAY May 14, 2023 12:00am June 04, 2023 1:39pm Start: 06-30-2019 End: 10-27-2019 take 1 tablet by mouth twice daily topiramate (TOPAMAX) 50 MG tablet Indications: Severe recurrent major depression without psychotic features (HCC) Take 1 tablet by mouth two times a day. 60 tablet 2 10/27/2019 Active End: 10-21-2022 take 1 tablet by mouth twice daily topiramate (TOPAMAX) 25 mg tablet Take 25 mg by mouth twice daily. 0 10/21/2022 Discontinued Comment on above: Take 25 mg by mouth twice daily. Problems Active Problems Problem Classification Problem Date Documented Date Episodic/Chronic Disorders of lipid metabolism (3 sources) Hyperlipidemia, unspecified; Translations: [Hyperlipidemia, unspecified] Onset: 11-04-2024 Chronic Immunizations and screening for infectious disease (3 sources) Tuberculosis screening status; Translations: [Encounter for screening for respiratory tuberculosis] Onset: 02-16-2025 Episodic Mood disorders (9 sources) Severe recurrent major depression without psychotic features; Translations: [Severe major depression without psychotic features ] Onset: 12-30-2018 12-30-2018 Chronic Other aftercare (2 sources) Drug therapy finding; Translations: [Other mcc (current) drug therapy] Episodic Other lower respiratory disease (2 sources) Dyspnea; Translations: [Shortness of breath] 06-04-2023 Episodic Other lower respiratory disease (2 sources) Shortness of breath; Translations: [Shortness of breath] 06-04-2023 Episodic Other nervous system disorders (2 sources) Anesthesia of skin; Translations: [Anesthesia of skin] Onset: 03-03-2018 Episodic Other screening for suspected conditions (not mental disorders or infectious disease) (4 sources) Electrocardiogram abnormal; Translations: [Abnormal electrocardiogram [ECG] [EKG]] 06-04-2023 Episodic Residual codes; unclassified (20 sources) Obstructive sleep apnea syndrome; Translations: [Obstructive sleep apnea (adult) (pediatric)] Onset: 01-09-2024 Chronic Residual codes; unclassified (2 sources) Daytime somnolence; Translations: [Other hypersomnia] Chronic Residual codes; unclassified (1 source) Hypersomnia disorder related to a known organic factor; Translations: [Hypersomnia due to medical condition] Chronic Residual codes; unclassified (3 sources) Hypersomnia; Translations: [Hypersomnia, unspecified] Chronic Residual codes; unclassified (20 sources) Idiopathic hypersomnia; Translations: [Idiopathic hypersomnia with long sleep time] Onset: 01-09-2024 01-06-2024 Chronic Residual codes; unclassified (1 source) Idiopathic hypersomnia with long sleep time; Translations: [Idiopathic hypersomnia] Onset: 01-09-2024 Chronic Residual codes; unclassified (2 sources) Obstructive sleep apnea (adult) (pediatric); Translations: [LORENA on CPAP] Onset: 01-09-2024 Chronic Unclassified (1 source) Medication Management Onset: 01-04-2025 Past or Other Problems Problem Classification Problem Date Documented Da te Episodic/Chronic Abdominal pain (1 source) Unspecified abdominal pain; Translations: [Unspecified abdominal pain] Onset: 07-24-2024 Episodic Genitourinary symptoms and ill-defined conditions (2 sources) Asymptomatic microscopic hematuria; Translations: [Dysuria] Onset: 07-24-2024 Episodic Other aftercare (1 source) Other mcc (current) drug therapy; Translations: [On stimulant medication] Onset: 10-11-2024 Episodic Results Test Name Value Interpretation Reference Range Facility URINE CULTURE [CCL]on 2024 Bacteria identified Cx Nom (U) URCUL See Results Below See Below CULTURE, URINE NORMAL UROGENITAL STEFANI 50,000-<100,000 CFU/ml Normal urogenital stefani SOURCE: Urine (Nonspecific) [facility] [address] [place] [address] Jose De Dios III, M.D. [id number] SEND TO IC NO Normal [facility] Comment on above: Performed By: #### 2 [id number] #### [facility],[address] [place] [id number] Bacteria Ur Culton Bacteria identified Cx Nom (U) ORGANISM ID: 1 50,000-<100,000 CFU/ml Normal urogenital stefani Normal [facility] Comment on above: Performed By: #### 6 30-4 #### [facility] CLIA [id number] [address] [place] [address] [place] ED MED ADMINISTRATION DETAIL on 04-09-2025 ED MED ADMINISTRATION DETAIL Bariatric Coordinator Medication Administration Record [address] [address] [id number] 04/04/2025 Patient: JAMMIE GONZALEZ Sex: Female : 1985 Age: 39y MEASUREMENTS: Wt: 86.2 kg, Ht/Fredis: 65.0 in, BMI: 31.62 ALLERGIES: No known drug allergies Medication Ordered Medication Administration Date/Time IV NS 0.9 % 1000 09:04/04 IV NS 0.9 % 1000 mL started in bag#1 1000 mL at Started mL at 500 mL/hr 500 mL/hr via Site# 1. Allergies verified and confirmed 5 rights. IV 09:10 04/04/2025 (NOW x1) patency established. IV site checked: no pain, redness, or swelling. Shauna Griffith R.N. IV flushed thoroughly pre-medication administration. Information Stopped reviewed with patient. Verbalizes understanding. - 09:10 Shauna 09:59 04/04/2025 Kush Griffith R.N. Scanned 09:04/04 Medication Discontinued: bag #1 infused. Total amount infused: 1000 mL. IV patency established. IV site checked: no pain, redness, or swelling. IV flushed thoroughly post-medication administration. - 09:59 Marii Valladares R.N. Zofran IVP 4 mg 09:04/04 Zofran IVP 4 mg given via Site# 1. IV patency Given (NOW x1) established. IV site checked: no pain, redness, or swelling. IV 09:04/04/2025 flushed thoroughly pre-medication administration. Information Marii Valladares R.N. reviewed. Verbalizes understanding. - 09:30 Marii Valladares R.N. Scanned 1 of 2 Bariatric Coordinator Medication Ordered Medication Administration Date/Time IV NS 0.9 % 1000 10:04/04 IV NS 0.9 % 1000 mL started in bag#1 1000 mL at Started mL at 500 mL/hr 500 mL/hr via Site# 1. Allergies verified and confirmed 5 rights. IV 10:33 04/04/2025 (NOW x1) patency established. IV site checked: no pain, redness, or swelling. Marii Valladares R.N. IV flushed thoroughly pre-medication administration. Information Stopped reviewed with patient. Verbalizes understanding. - 10:34 Marii 11:33 04/04/2025 Kush Valladares R.N. Scanned 11:04/04 Medication Discontinued: bag #2 infused. Total amount infused: 1000 mL. IV patency established. IV site checked: no pain, redness, or swelling. IV flushed thoroughly post-medication administration. - 11:58 Marii Valladares R.N. 2 of 2 Normal [facility] ED NURSES CLINICAL NOTEon ED NURSES CLINICAL NOTE Nurse Narrative Nurse Clinical Narrative [address] [address] [id number] 04/04/2025 08:26:00 Patient: JAMMIE GONZALEZ Sex: Female : 1985 Age: 39y Disposition: Discharge to Home Disposition Decision Time: 11:32 04/04/2025 Departure Time: 11:52 04/04/2025 TRIAGE Historian: (patient). Arrived walking from work. Primary physician (Kathy). Triage time: 08:28 04/04/2025. Acuity: LEVEL 2. Chief Complaint: CHEST DISCOMFORT and (palpitations). This started today. The patient has had difficulty breathing, nausea, vomiting, chills and palpitations. Reports experiencing sweating episodes. ( tunnel vision). SEPSIS SCREEN: NEGATIVE. SIRS criteria negative. No possible sources of infection. -- 08:36 04/04/25 EDT Alvin Nelson R.N. 08:04/04/25. BP: 109/71 MAP: 84. HR: 79. RR: 19. O2 saturation: 96% Temperature: 97.2 F. Pain level now 0/10. -- 08:36 04/04/25 MUSA Nelson R.N. Measurements: 08:36 04/04/25 Wt: 86.2 kg, Ht/Fredis: 65.0 in, BMI: 31.62 -- 08:36 04/04/25 MUSA Nelson R.N. Medications: lamotrigine 25 mg tablet: 2 tablet once a day. -- 08:42 04/04/25 MUSA Nelson R.N. fluoxetine 20 mg capsule: 4 capsule once a day. -- 08:42 04/04/25 MUSA Nelson R.N. atorvastatin 20 mg tablet: 1 tablet once a day. -- 08:42 04/04/25 MUSA Nelson R.N. 1 of 4 Nurse Narrative armodafinil 250 mg tablet: 1 tablet once a day. -- 08:42 04/04/25 MUSA Nelson R.N. aripiprazole 15 mg tablet: 1 tablet once a day. -- 08:04/04/25 MUSA Nelson R.N. Allergies: no known drug allergies -- 08:04/04/25 MUSA Nelson R.N. Problems: Hypersomnia -- 08:04/04/25 MUSA Nelson R.N. Depression -- 08:04/04/25 EDT Alvin Nelson R.N. Anxiety disorder -- 08:32 04/04/25 EDT Alvin Nelson R.N. Hypercholesterolemia -- 08:32 04/04/25 KATET Alvin Nelson R.N. Surgeries: Tonsillectomy -- 08:33 04/04/25 KATET Alvin Nelson R.N. Cholecystectomy -- 08:33 04/04/25 KATET Alvin Nelson R.N. Carpal Tunnel Surgery -- 08:33 04/04/25 KATET Alvin Nelson R.N. History 08:04/04/25. SOCIAL HX: Former smoker. Occasional alcohol use. No drug use. The patient has not traveled outside the [place] Infectious disease exposure: No infectious disease exposure. ABUSE ASSESSMENT: The patient answered yes to the question(s) Do you feel safe in your home? and no to the question(s) Are you afraid to go home?. SELF HARM ASSESSMENT: Self harm assessment was performed. The patient answered no to the question(s) Have you recently felt down, depressed, or hopeless? and Do you have thoughts of harming or killing yourself?. FALL RISK ASSESSMENT: Fall risk assessment completed. No risk factors identified. -- 08:36 04/04/25 KATET Alvin Nelson R.N. Interventions 08:04/04/25. To room. -- 08:36 04/04/25 EDT Alvin Nelson R.N. 2 of 4 Nurse Narrative PHYSICAL ASSESSMENT 08:39 04/04/25. GENERAL / NEURO / PSYCH: Alert. Oriented X 4. Appears in no acute distress. ( Pt arrives ambulatory to ER#3 c/o SOB, palpitations to the chest, tunnel vision, nausea/ vomiting. shaky. 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 HEENT: Mucous membranes are pink. RESPIRATORY: Respirations not labored. Chest nontender. Breath sounds within normal limits. CVS: Normal sinus rhythm noted. Heart sounds within normal limits. Pulses within normal limits. Capillary refill less than 2 seconds. GI / : The patient has had nausea. Abdomen soft and nontender. SKIN: Skin is warm and dry. Normal skin turgor. -- 09:04 04/04/25 EDT Marii Valladares R.N. NURSING PROGRESS NOTES 08:29 04/04/25. 12-LEAD EKG: EKG time: (08:29 04/04/2025). 12-Lead EKG was ordered and performed by me. -- 08:45 04/04/25 EDT Marii Valladares R.N. 08:35 04/04/25. Site #1 started in the left wrist with an 18g angiocath with aseptic technique and good blood return; 1 attempt. Blood drawn: rainbow set tube(s). Saline lock flushed with 5 mL saline. -- 08:44 04/04/25 EDT Marii Valladares R.N. 08:47 04/04/25. ED physician at the patient's bedside (08:47 04/04/2025). -- 08:51 04/04/25 EDT Marii Valladares R.N. 08:57 04/04/25. Portable chest x-ray completed. -- 09:41 04/04/25 EDT Mraii Valladares R.N. 09:10 04/04/25. IV NS 0.9 % 1000 mL started in bag#1 1000 mL at 500 mL/hr via Site# 1. Allergies verified and confirmed 5 rights. IV patency established. IV site checked: no pain, redness, or swelling. IV flushed thoroughly pre-medication administration. Information reviewed with patient. Verbalizes understanding. -- 09:10 04/04/25 EDT Shauna Griffith R.N. 09:29 04/04/25. Zofran IVP 4 mg given via Site# 1. IV patency established. IV site checked: no pain, redness, or swelling. IV flushed thoroughly pre-medication administration. Information reviewed. Verbalizes understanding. -- 09:30 (more content not included)... Normal [facility] ED ORDER SHEET (CPOE ONLY)on 04-09-2025 ED ORDER SHEET (CPOE ONLY) Order Sheet Order Sheet [address] [place] [address] [id number] 04/04/2025 Patient: JAMMIE GONZALEZ Sex: Female : 1985 Age: 39y MEASUREMENTS: Wt: 86.2 kg, Ht/Fredis: 65.0 in, BMI: 31.62 ALLERGIES: No known drug allergies MEDICATION/IV/DRIP/FLUID ORDERS Order Description Priority Entered Acknowledged Completed IV NS 0.9 %1000 mL at 500 08:52 04/04/2025 09:10 mL/hr (NOW x1) Migel Jameson, 04/04/2025 Jenny Griffith R.N. Zofran IVP4 mg (NOW x1) 09:25 04/04/2025 09:30 Migel Jameson, 04/04/2025 Jenny Valladares R.N. IV NS 0.9 %1000 mL at 500 10:21 04/04/2025 10:34 mL/hr (NOW x1) Migel Jameson, 04/04/2025 Jenny Valladares R.N. Reason for ordering with alerts: Benefits outweigh risks --10:21 04/04/2025 Migel Jameson D.O. LAB ORDERS Order Description Priority Entered Acknowledged Collected Completed 1 of 3 Order Sheet CBC w Diff Stat Stat 08:52 04/04/2025 09:30 04/04/2025 09:30 04/04/2025 Marii Schroeder Shauna Ewing, D.O. R.N. R.N. CMP Stat Stat 08:52 04/04/2025 09:30 04/04/2025 09:30 04/04/2025 Marii Schroeder Shauna Ewing, D.O. R.N. R.N. Troponin-I Stat Stat 08:52 04/04/2025 09:30 04/04/2025 09:30 04/04/2025 Marii Schroeder Shauna Ewing, D.O. R.N. R.N. EKG - ED Stat Stat 08:52 04/04/2025 09:30 04/04/2025 09:30 04/04/2025 Marii Schroeder Shauna Ewing, D.O. R.N. RAnabelleN. D-Dimer Stat Stat 08:52 04/04/2025 09:30 04/04/2025 09:30 04/04/2025 Marii Schroeder Shauna Ewing, D.O. R.N. RAnabelleNAnabelle Troponin-I Stat Stat 10:21 04/04/2025 10:31 04/04/2025 11:15 04/04/2025 Marii Schroeder Shauna Ewing, D.O. R.N. RAnabelleNAnabelle DIAGNOSTIC STUDY ORDERS Order Description Priority Entered Acknowledged Completed Chest 1V Stat Stat 08:52 04/04/2025 09:30 09:30 Migel Jameson 04/04/2025 04/04/2025 Marii Lofton R.NAnabelle RAnabelleNAnabelle Order Comments: 08:52 04/04/2025: Status: Unknown. Migel Jameson D.O. 2 of 3 Order Sheet Reason for Study: Chest Pain STAFF ORDERS Order Description Priority Entered Acknowledged Collected Completed IV Saline Lock 08:52 04/04/2025 09:30 04/04/2025 09:30 04/04/2025 Marii Schroeder Shauna Ewing, D.O. R.NAnabelle R.NAnabelle Paperhanger Assistant 08:52 04/04/2025 09:30 04/04/2025 09:30 04/04/2025 Marii Schroeder Shauna Ewing, D.O. R.N. R.NAnabelle Pulse Oximeter 08:52 04/04/2025 09:30 04/04/2025 09:30 04/04/2025 Marii Schroeder Shauna Ewing, D.O. R.NAnabelle R.NAnabelle Oxygen titrate to 92% 08:52 04/04/2025 09:30 04/04/2025 09:30 04/04/2025 Marii Schroeder Shauna Ewing, D.O. R.NAnabelle RAnabelleNAnabelle [Electronically signed by Migel Jameson D.O. (04/09/2025 02:53 EDT)] 3 of 3 Normal [facility] ED PHYSICIAN CLINICAL REPORT on 04-09-2025 ED PHYSICIAN CLINICAL REPORT Narrative Physician Clinical Narrative [address] [place] [address] [id number] 04/04/2025 08:26:00 Patient: JAMMIE GONZALEZ [facility]#: [id number] Sex: Female : 1985 Age: 39y Disposition: Discharge to Home Disposition Decision Time: 11:32 04/04/2025 Departure Time: 11:52 04/04/2025 Measurements Wt: 86.2 kg, Ht/Fredis: 65.0 in, BMI: 31.62 Initial Vital Sign Measured Time BP MAP HR RR O2Sat ETCO2 Temp Pain GCS RTS 08:32 04/04/2025 109/71 76 79 Time Seen: 08:36 04/04/2025. Arrived- By private vehicle. Historian- patient. Independent historian- family. HISTORY OF PRESENT ILLNESS Chief Complaint: PALPITATIONS. This started just prior to arrival patient went to work and she started having some palpitations nausea vomiting she had no pain but had more chest discomfort just did not feel well and presented to the emergency department. She has no history of diabetes high blood pressure cholesterol, no family history of heart disease. She is not smoke. She has had no recent travel trauma or surgeries. REVIEW OF SYSTEMS NEUROLOGICAL: No headache. ENDO/HEME/LYMPH: No enlarged lymph nodes. CONSTITUTIONAL: No fever or chills. GI: The patient has had nausea and vomiting. Status: Unknown. 1 of 10 Narrative PAST HISTORY See nurses notes. Anxiety disorder Depression Hypercholesterolemia Hypersomnia Surgeries: Carpal Tunnel Surgery Cholecystectomy Tonsillectomy Medications: aripiprazole 15 mg tablet: 1 tablet once a day. armodafinil 250 mg tablet: 1 tablet once a day. atorvastatin 20 mg tablet: 1 tablet once a day. fluoxetine 20 mg capsule: 4 capsule once a day. lamotrigine 25 mg tablet: 2 tablet once a day. Allergies: no known drug allergies SOCIAL HISTORY Former smoker. No alcohol use. ADDITIONAL NOTES The nursing notes have been reviewed. PHYSICAL EXAM Appearance: Alert. Oriented X3. No acute distress. Eyes: Pupils equal, round and reactive to light. Eyes normal inspection. ENT: Ears normal. Nose normal. Neck: Normal inspection. Neck supple. 2 of 10 Narrative CVS: Normal heart rate and rhythm. Heart sounds normal. Respiratory: No respiratory distress. Breath sounds normal. Abdomen: Soft and nontender. Skin: Normal skin color. Normal skin turgor. Extremities: Extremities exhibit normal ROM. No lower extremity edema. Neuro: Oriented X 3. No motor deficit. LABS, X-RAYS, AND EKG 12-LEAD EKG: EKG time: 08:29 04/04/2025. No acute process. Normal EKG. Normal sinus rhythm. Rate: 60. Normal P waves. Normal CLEOPATRA. Normal axis. The study has been interpreted contemporaneously by me. Interpretation time: 08:31 04/04/2025. Laboratory Tests: CBC + DIFF Final MINISTERIO: 04/04/2025 08:35:00 EDT MsgRcvd: 04/04/2025 09:01 EDT Lab Test Result Reference Status Received Comments 04/04/2025 09:01 CBC-COMPLETE CBC + DIFF Final EDT BLOOD COUNT 12.2 x 10/UL 04/04/2025 09:01 WBC 4.5 - 10.8 Final Above high normal EDT 04/04/2025 09:01 RBC 4.22 x 10/UL 4.10 - 5.30 Final EDT 04/04/2025 09:01 HEMOGLOBIN 13.9 g/dl 12.0 - 16.0 Final EDT 04/04/2025 09:01 HEMATOCRIT 39.2 % 34.0 - 46.0 Final EDT 04/04/2025 09:01 MCV 93 fl 80 - 99 Final EDT 3 of 10 Narrative Lab Test Result Reference Status Received Comments 04/04/2025 09:01 MCH 33 pg 27 - 33 Final EDT 04/04/2025 09:01 MCHC 35 X10 3 32 - 36 Final EDT 04/04/2025 09:01 RDW/CV 13.0 % 12.0 - 15.6 Final EDT 04/04/2025 09:01 PLATELET 312 x10/UL 150 - 450 Final EDT 04/04/2025 09:01 AUTOMATED MPV 7.3 fl 6.6 - 10.5 Final EDT DIFFERENTIAL 77.8 % 04/04/2025 09:01 NEUT % 46.0 - 76.0 Final Above high normal EDT 16.2 % 04/04/2025 09:01 LYMPH % 20.0 - 45.0 Final Below low normal EDT 04/04/2025 09:01 MONOS % 5.0 % 0.0 - 10.0 Final EDT 04/04/2025 09:01 EO % 0.7 % 0.0 - 7.0 Final EDT 04/04/2025 09:01 BASO % 0.3 % 0.0 - 2.0 Final EDT 04/04/2025 09:01 Lymph # 1.99 x10/UL 0.80 - 2.80 Final EDT 9.53 x10/UL 04/04/2025 09:01 Neut # 1.50 - 7.10 Final Above high normal EDT 04/04/2025 09:01 [place] # 0.61 x10/UL 0.20 - 1.00 Final EDT 4 of 10 Narrative Lab Test Result Reference Status Received Comments 04/04/2025 09:01 EO # 0.08 x10/UL 0.00 - 0.50 Final EDT 04/04/2025 09:01 Baso # 0.03 x10/UL 0.00 - 0.10 Final EDT 04/04/2025 09:01 MANUAL DIFF N/A New Order EDT 04/04/2025 09:01 MORPHOLOGY N/A New Order EDT CMP with eGFR Final MINISTERIO: 04/04/2025 08:35:00 EDT MsgRcvd: 04/04/2025 09:28 EDT Lab Test Result Reference Status Received Comments COMPREHENSIVE 04/04/2025 CMP with eGFR Final METABOLIC 09:28 EDT PANEL 04/04/2025 SODIUM 136 mmol/l 136 - 145 Final 09:28 EDT 04/04/2025 POTASSIUM 3.5 mmol/L 3.5 - 5.1 Final 09 (more content not included)... Normal [facility] ED SUPER BILLon 04-09-2025 ED SUPER BILL [facility] [address] [place] [address] [phone] 04/04/2025 Patient: JAMMIE GONZALEZ Sex: Female : 1985 Age: 39y Facility Professional Category Item Description Code Code Quantity Fee Total Drugs Normal Saline 807253 2 $0.00 $0.00 1000cc (892045) Nurse/E/M EMERGENCY 989967 1 $0.00 $0.00 DEPT VISIT HIGH SEVERITYFUNCJ (03401-66) Nurse/IV/IM/Infusions Hydration 043082 2 $0.00 $0.00 additional hour (32233) Nurse/IV/IM/Infusions IVP initial (83018) 870551 1 $0.00 $0.00 Grand $0.00 Total Providers Migel Jameson D.O. Chief Complaint PALPITATIONS. 1 of 2 Superbill Principal Diagnosis Vomiting with nausea and dehydration. Palpitations. Dehydration ICD-10 Codes R00.2: Palpitations R11.2: Nausea with vomiting, unspecified E86.0: Dehydration 2 of 2 Normal [facility] ED VISIT SUMMARYon ED VISIT SUMMARY Visit Overview Visit Overview [address] [address] [phone] 04/04/2025 Patient: JAMMIE GONZALEZ Sex: Female : 1985 Age: 39y 04/09/2025 02:53 AM EDT ED Arrival:08:26 04/04/2025 EDT Status: Recent Travel:no Language:eng Adv Directive: Isolation Status: Ethnicity:N Fall Risk:no risk Infectious Disease Exposure:no Measurements:5'5 / 165.1 Self-Harm Status:risk Sepsis Screen:negative cm 190.0 lb / 86.2 kg Chief Complaint:CHEST DISCOMFORT, ([place]), (palpitations), and (tunnel vision) ALLERGIES No Known Drug Allergies HOME MEDICATIONS aripiprazole 15 mg tablet: 1 tablet once a day. armodafinil 250 mg tablet: 1 tablet once a day. atorvastatin 20 mg tablet: 1 tablet once a day. fluoxetine 20 mg capsule: 4 capsule once a day. lamotrigine 25 mg tablet: 2 tablet once a day. Visit Overview PAST MEDICAL HISTORY / PROBLEMS Anxiety disorder Depression Hypercholesterolemia Hypersomnia See nurses notes PAST SURGICAL HISTORY Carpal Tunnel Surgery Cholecystectomy Tonsillectomy SOCIAL HISTORY Smoking status: No Alcohol use: Yes Drug use: No ED COURSE MEDICATIONS GIVEN IN EMERGENCY DEPARTMENT 09:10 04/04/25 IV NS 0.9 % 1000 mL 500 mL/hr 09:29 04/04/25 Zofran IVP 4 mg 10:33 04/04/25 IV NS 0.9 % 1000 mL 500 mL/hr IV SITE INFORMATION INTAKE OUTPUT REASSESMENT (most recent) 2 of 4 Visit Overview 08:39 04/04/25. GENERAL / NEURO / PSYCH: Alert. Oriented X 4. Appears in no acute distress. ( Pt arrives ambulatory to ER#3 c/o SOB, palpitations to the chest, tunnel vision, nausea/ vomiting. shaky. 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 HEENT: Mucous membranes are pink. RESPIRATORY: Respirations not labored. Chest nontender. Breath sounds within normal limits. CVS: Normal sinus rhythm noted. Heart sounds within normal limits. Pulses within normal limits. Capillary refill less than 2 seconds. GI / : The patient has had nausea. Abdomen soft and nontender. SKIN: Skin is warm and dry. Normal skin turgor. VITAL SIGNS First Vitals Last Vitals Temp 08:32 04/04/25 Temp 11:48 04/04/25 BP 08:32 04/04/25 109/71 BP 11:48 04/04/25 HR 08:32 04/04/25 79 HR 11:48 04/04/25 84 RR 08:32 04/04/25 RR 11:48 04/04/25 O2 Sat 08:32 04/04/25 O2 Sat 11:48 04/04/25 97% Pain 08:32 04/04/25 Pain 11:48 04/04/25 ETCO2 08:32 04/04/25 ETCO2 11:48 04/04/25 GCS 08:32 04/04/25 GCS 11:48 04/04/25 RTS 08:32 04/04/25 RTS 11:48 04/04/25 PROCEDURES NURSING INTERVENTIONS LABS / STUDIES LABS / STUDIES ORDERED CBC w Diff Chest 1V CMP D-Dimer EKG - ED Troponin-I Troponin-I CLINICAL IMPRESSION DEHYDRATION 3 of 4 Visit Overview PALPITATIONS VOMITING WITH NAUSEA AND DEHYDRATION 4 of 4 Normal [facility] ED VITALS FLOW SHEETon 04-09 ED VITALS FLOW SHEET Vitals Vital Sign Flow Sheet [address] [place] [address] [phone] 04/04/2025 Patient: JAMMIE GONZALEZ Sex: Female : 1985 Age: 39y Measurements Wt: 86.2 kg, Ht/Fredis: 65.0 in, BMI: 31.62 Measured Time BP MAP HR RR O2Sat ETCO2 Temp Pain GCS RTS 11:48 04/04/2025 84 97% 11:46 04/04/2025 106/67 74 81 11:43 04/04/2025 83 96% 11:38 04/04/2025 82 96% 11:33 04/04/2025 85 97% 11:31 04/04/2025 112/69 76 82 11:28 04/04/2025 86 96% 11:23 04/04/2025 84 97% 11:18 04/04/2025 85 97% 11:16 04/04/2025 108/69 76 79 11:13 04/04/2025 93 96% 11:08 04/04/2025 89 97% 11:03 04/04/2025 87 96% 11:02 04/04/2025 109/67 72 81 10:58 04/04/2025 77 95% 1 of 3 Vitals Measured Time BP MAP HR RR O2Sat ETCO2 Temp Pain GCS RTS 10:53 04/04/2025 86 96% 10:48 04/04/2025 88 94% 10:46 04/04/2025 98/58 64 78 10:43 04/04/2025 89 94% 10:38 04/04/2025 87 94% 10:33 04/04/2025 85 96% 10:31 04/04/2025 109/63 71 81 10:28 04/04/2025 82 96% 10:23 04/04/2025 94 93% 10:18 04/04/2025 84 96% 10:16 04/04/2025 104/64 73 81 10:13 04/04/2025 87 96% 10:08 04/04/2025 87 96% 10:03 04/04/2025 86 97% 10:01 04/04/2025 108/63 80 82 09:58 04/04/2025 85 97% 09:53 04/04/2025 94 98% 09:48 04/04/2025 92 99% 09:46 04/04/2025 109/61 90 85 09:43 04/04/2025 90 97% 09:38 04/04/2025 94 97% 09:33 04/04/2025 86 97% 09:32 04/04/2025 118/81 91 88 09:28 04/04/2025 89 98% 09:23 04/04/2025 100 96% 2 of 3 Vitals Measured Time BP MAP HR RR O2Sat ETCO2 Temp Pain GCS RTS 09:18 04/04/2025 86 96% 09:13 04/04/2025 77 95% 09:08 04/04/2025 82 95% 09:03 04/04/2025 85 96% 09:01 04/04/2025 107/78 86 87 08:58 04/04/2025 86 94% 08:53 04/04/2025 82 94% 08:48 04/04/2025 87 95% 08:46 04/04/2025 100/71 76 82 08:43 04/04/2025 84 95% 08:38 04/04/2025 81 96% 08:36 04/04/2025 109/71 84 79 19 96% 97.2 F 0 08:32 04/04/2025 109/71 76 79 3 of 3 Normal [facility] CBC + DIFFon 04-04-2025 Baso # 0.03 x10EE3/UL Normal 0.00 - 0.10 [facility] Comment on above: Performed By: #### 2 [id number] #### [facility],[address] [place] [address] Basophils/100 WBC (Bld) 0.3 % Normal 0.0 - 2.0 [facility] Comment on above: Performed By: #### 2 08502 #### [facility],[address] [place] [address] 54510 CBC + DIFF Normal [facility] Comment on above: Result Comment: CBC- COMPLETE BLOOD COUNT Performed By: #### 2 [id number] #### [facility],[address] [place] [address] 40583 EO # 0.08 x10EE3/UL Normal 0.00 - 0.50 [facility] Comment on above: Performed By: #### 2 46490 #### [place] [address] Eosinophils/100 WBC (Bld) 0.7 % Normal 0.0 - 7.0 [facility] Comment on above: Performed By: #### 2 14192 #### [place] [address] Erythrocyte distribution width (RBC) [Ratio] 13.0 % Normal 12.0 - 15.6 [facility] Comment on above: Performed By: #### 2 39324 #### [place] [address] Hematocrit (Bld) [Volume fraction] 39.2 % Normal 34.0 - 46.0 [facility] Comment on above: Performed By: #### 2 14780 #### [place] [address] Hemoglobin (Bld) [Mass/Vol] 13.9 g/dL Normal 12.0 - 16.0 [facility] Comment on above: Performed By: #### 2 62401 #### [place] [address] Lymph # 1.99 x10EE3/UL Normal 0.80 - 2.80 [facility] Comment on above: Performed By: #### 2 94962 #### [place] [id number] Lymphocytes/100 WBC (Bld) 16.2 % Low 20.0 - 45.0 [facility] Comment on above: Performed By: #### 2 57588 #### [place] [id number] MANUAL DIFF N/A Normal [facility] Comment on above: Performed By: #### 2 66593 #### [place] [address] MCH (RBC) [Entitic mass] 33 pg Normal 27 - 33 [facility] Comment on above: Performed By: #### 2 01952 #### [facility],[address] [place] [address]149 MCHC 35 X10 3 Normal 32 - 36 [facility] Comment on above: Performed By: #### 2 86499 #### [facility],[address] [place], [place] [phone] MCV (RBC) [Entitic vol] 93 fL Normal 80 - 99 [facility] Comment on above: Performed By: #### 2 51621 #### [facility],[address] [place] [address] [place] # 0.61 x10EE3/UL Normal 0.20 - 1.00 [facility] Comment on above: Performed By: #### 2 59730 #### [facility],[address] [place], [place] [phone] MONOS % 5.0 % Normal 0.0 - 10.0 [facility] Comment on above: Performed By: #### 2 84012 #### [facility],[address] [place] [address] 65805 Morphology Urban (Bld) [Interp] N/A Normal [facility] Comment on above: Performed By: #### 2 89553 #### [facility],[address] [place] [address] 66400 Neut # 9.53 x10EE3/UL High 1.50 - 7.10 [facility] Comment on above: Performed By: #### 2 44959 #### [address] [address] Neutrophils/100 WBC (Bld) 77.8 % High 46.0 - 76.0 [facility] Comment on above: Performed By: #### 2 50877 #### [facility],[address] [place], [place] [phone] PLATELET 312 x10EE3/UL Normal 150 - 450 [facility] Comment on above: Performed By: #### 2 20127 #### [facility],[address] [place] [address]809 Platelet mean volume (Bld) [Entitic vol] 7.3 fL Normal 6.6 - 10.5 [facility] Comment on above: Result Comment: AUTO MATED DIFFERENTIAL Performed By: #### 2 71387 #### [address] [address] RBC 4.22 x 10EE6/UL Normal 4.10 - 5.30 [facility] Comment on above: Performed By: #### 2 20577 #### [address] [address] WBC 12.2 x 10EE3/UL High 4.5 - 10.8 [facility] Comment on above: Performed By: #### 2 69347 #### [facility],[address] [place] [address]3280 CHEST 1 VIEWon 04-04-2025 CHEST 1 VIEW [place] [address] Patient: JAMMIE GONZALEZ Phone#: : 1985 Age: 39 Gender: F Pt. Type: ER Account: [id number] Location: [facility] Ordering: MIGEL JAMESON Exam Date: 04/04/2025/8:57 Family Phys: Charge Code: 676888 Physician: [place] Order #: [id number] Dose#: PROCEDURE: X-RAY CHEST 1 VIEW COMPARISON: [facility], , CHEST 2 VIEWS, 01/28/2025, 16:58. INDICATIONS: Chest pain. FINDINGS: LUNGS: Normal. No significant pulmonary parenchymal abnormalities. VASCULATURE: Normal. Unremarkable pulmonary vasculature. CARDIAC: Normal. No cardiac silhouette abnormality or cardiomegaly. MEDIASTINUM: Normal. No visible mass or adenopathy. PLEURA: Normal. No effusion or pleural thickening. BONES: Normal. No fracture or visible bony lesion. OTHER: Monitoring leads project across the thorax CONCLUSION: No acute disease. No significant change has occurred. Dictated by: Valentin Mullen MD on 04/04/2025 at 9:07 Approved by: Valentin Mullen MD on 04/04/2025 at 9:09 Normal [facility] CMP with eGFRon 04-04-2025 AGE 39 years Normal [facility] Comment on above: Performed By: #### 2 47043 #### [facility],[address] [place] [address] 62186 Albumin [Mass/Vol] 3.8 g/dL Normal 3.4 - 5.0 [facility] Comment on above: Performed By: #### 2 73884 #### [facility],[address] [place] [address] 22827 Albumin/Globulin [Mass ratio] 0.9 {ratio} Normal 0.9 - 1.6 [facility] Comment on above: Performed By: #### 2 49950 #### [facility],[address] [place] [address] 17542 ALK PHOS 105 U/L Normal 46 - 116 [facility] Comment on above: Performed By: #### 2 49434 #### [facility],[address] [place] [address] 31778 ALT [Catalytic activity/Vol] 34 U/L Normal 16 - 63 [facility] Comment on above: Performed By: #### 2 70857 #### [facility],[address] [place] [address] 98157 Anion gap [Moles/Vol] 13 mmol/L Normal 10 - 20 [facility] Comment on above: Performed By: #### 2 42278 #### [facility],[address] [place] [address] 11987 AST [Catalytic activity/Vol] 25 U/L Normal 13 - 39 [facility] Comment on above: Performed By: #### 2 14097 #### [facility],[address] [place] [address] 50194 B/C RATIO 13 ratio Normal 0 - 30 [facility] Comment on above: Performed By: #### 2 38926 #### [facility],[address] [place] [address] 57898 Bilirubin [Mass/Vol] 0.4 mg/dL Normal 0.2 - 1.0 [facility] Comment on above: Performed By: #### 2 83838 #### [facility],[address] [place] [address] 11880 Calcium [Mass/Vol] 8.9 mg/dL Normal 8.5 - 10.1 [facility] Comment on above: Performed By: #### 2 75476 #### [facility],[address] [place], [place] [phone] Chloride [Moles/Vol] 102 mmol/L Normal 98 - 107 [facility] Comment on above: Performed By: #### 2 98636 #### [facility],[address] [place], [place] [phone] CMP with eGFR Normal [facility] Comment on above: Result Comment: COMP REHENSIVE METABOLIC PANEL Performed By: #### 2 89983 #### [facility],[address] [place] [address] 53622 CO2 [Moles/Vol] 24.1 mmol/L Normal 21.0 - 32.0 [facility] Comment on above: Performed By: #### 2 33662 #### [facility],[address] [place] [address] 52332 Creatinine [Mass/Vol] 1.02 mg/dL Normal 0.55 - 1.02 [facility] Comment on above: Performed By: #### 2 40625 #### [facility],[address] [place] [address] 26814 eGFR 60 ML/MINUTE Normal 60 - 999 [facility] Comment on above: Performed By: #### 2 30542 #### [facility],[address] [place] [address] 82057 GFR/1.73 sq M.predicted among non-blacks MDRD (S/P/Bld) [Vol rate/Area] mL/min/{1.73_m2} Normal 60 - 999 [facility] Comment on above: Result Comment: ACCO RDING TO THE NATIONAL KIDNEY DISEASE EDUCATION PROGRAM(NKDE), A NORMAL eGFR IS A VALUE GREATER THAN OR EQUAL TO 60 ML/MIN/1.73 SQ METERS. CHRONIC KIDNEY DISEASE: <60mL/MIN/1.73 SQ METERS KIDNEY FAILURE: <15mL/MIN/1.73 SQ METERS THIS TEST SHOULD ONLY BE USED FOR PATIENTS 18 YEARS OF AGE AND OLDER. Performed By: #### 2 96899 #### [facility],[address] [place] [address] 89837 Globulin (S) [Mass/Vol] 4.2 g/dL High 1.5 - 3.8 [facility] Comment on above: Performed By: #### 2 68027 #### [facility],[address] [place] [address] 10780 Glucose [Mass/Vol] 106 mg/dL Normal 74 - 106 [facility] Comment on above: Performed By: #### 2 40883 #### [facility],[address] [place] [address] 95120 Potassium [Moles/Vol] 3.5 mmol/L Normal 3.5 - 5.1 [facility] Comment on above: Performed By: #### 2 63519 #### [facility],[address] [place] [address] 30096 Protein [Mass/Vol] 8.0 g/dL Normal 6.4 - 8.2 [facility] Comment on above: Performed By: #### 2 03919 #### [facility],[address] [place] [address] 61267 Sodium [Moles/Vol] 136 mmol/L Normal 136 - 145 [facility] Comment on above: Performed By: #### 2 29199 #### [facility],[address] [place] [address] 45756 Urea nitrogen [Mass/Vol] 13 mg/dL Normal 7 - 18 [facility] Comment on above: Performed By: #### 2 37292 #### [facility],[address] [place] [address] 60945 D-DIMER, QUANTITATIVEon 07-0 D-DIMER QUANT <200 Normal 0 - 230 [facility] Comment on above: Performed By: #### 2 15972 #### [facility],[address] [place] [address] 72511 D-DIMER, QUANTITATIVE Normal [facility] Comment on above: Result Comment: RANDA T D-DIMER Performed By: #### 2 47770 #### [facility],[address] [place] [address] 87470 TROPONINon 04-04-2025 HS TROPONIN 5.2 pg/mL Normal 0.0 - 51.4 [facility] Comment on above: Performed By: #### 2 94401 #### [facility],[address] [place] [address] 83998 HS TROPONIN 4.9 pg/mL Normal 0.0 - 51.4 [facility] Comment on above: Performed By: #### 2 51420 #### [facility],[address] [place] [address] 09524 Produce Runner Cytology Reporton 2024 Produce Runner Cytology Report . Pathology Reports Accession: Collected Date/Time: Received Date/Time: Pathologist: [id number] 02/16/2025 13:39 EDT 02/16/2025 18:00 EDT Produce Runner Cytology Report SPECIMEN: Specimen Description: Liquid Prep w/ HPV Specimen: Cervical Screening or Diagnostic: Screening RELEVANT HISTORY: LMP: 02/11/25 SPECIMEN ADEQUACY: SATISFACTORY FOR EVALUATION Endocervical/Transformat ional zone component present INTERPRETATION/RESULTS: NEGATIVE FOR INTRAEPITHELIAL LESION OR MALIGNANCY HIGH RISK HPV TESTING: Event Code Result HPV Interp See Interp HPVN f HPV Interp Comment: Clinical Interpretation: High Risk HPV Typing: NEGATIVE HPV types 16, 18, 31, 33, 35, 39, 45, 51, 52, 56, 58, 59, 66 and 68 DNA were undetectable or below the pre-set threshold. The bryce High-Risk HPV DNA Test is not intended for use as a screening device for Pap normal women under age 30 and is not intended to substitute for regular Pap screening. The bryce High-Risk HPV DNA Test is designed to augment existing methods for the detection of cervical disease and should be used in conjunction with clinical information derived from other diagnostic and screening tests, physical examinations and full medical history in accordance with appropriate patient management procedures. NOTE: A negative result does not preclude the presence of HPV infection because results depend on adequate specimen collection, absence of inhibitors and sufficient DNA to be detected. As of: 02/23/25 11:23 EDT COMMENT: This Pap Test was successfully processed and evaluated with the assistance of the EnsygniaPrep Test Imaging System. Pathology Reports Accession: Collected Date/Time: Received Date/Time: Pathologist: [id number] 02/16/2025 13:39 EDT 02/16/2025 18:00 EDT Verified by Pathology report verified by [facility] Screened by: KK Electronically signed by Carmen ROE (ASCP) Sign-Out Date: 02/23/2025 11:24 Performing Lab: [facility], [address] [place] [address] Pathology Dept Disclaimer The Pap test is a screening test for cervical cancer. As evidenced by published data, it is subject to both inherent false negative and false positive results. Your patient's results should be interpreted in context with pertinent clinical history including gynecological examination. Normal [facility] HPVon 02-18-2025 HPV Interp See Interp HPVN Normal See Interp HPVN [facility] Comment on above: Order Comment: Order placed by AP_HPV_ORDER rule from [id number] Result Comment: Clinical Interpretation: High Risk HPV Typing: NEGATIVE HPV types 16, 18, 31, 33, 35, 39, 45, 51, 52, 56, 58, 59, 66 and 68 DNA were undetectable or below the pre-set threshold. The bryce High-Risk HPV DNA Test is not intended for use as a screening device for Pap normal women under age 30 and is not intended to substitute for regular Pap screening. The bryce High-Risk HPV DNA Test is designed to augment existing methods for the detection of cervical disease and should be used in conjunction with clinical information derived from other diagnostic and screening tests, physical examinations and full medical history in accordance with appropriate patient management procedures. NOTE: A negative result does not preclude the presence of HPV infection because results depend on adequate specimen collection, absence of inhibitors and sufficient DNA to be detected. Performed By: #### H PV #### [address] [address] HPV Source Cervix Normal [facility] Comment on above: Order Comment: Order placed by AP_HPV_ORDER rule from [id number] Performed By: #### H PV #### [place] [id number] CHEST 2 VIEWSon 01-28-2025 CHEST 2 VIEWS [place] [address] Patient: JAMMIE GONZALEZ Phone#: : 1985 Age: 39 Gender: F Pt. Type: Out Account: [id number] Location: Ordering: KIMBERLEE KATHY Exam Date: 01/28/2025/16:58 Family Phys: Charge Code: [id number] Physician: Oxford Order #: [id number] Dose#: PROCEDURE: X-RAY CHEST 2 VIEWS COMPARISON: None. INDICATIONS: Cough. FINDINGS: LUNGS: Normal. No significant pulmonary parenchymal abnormalities. VASCULATURE: Normal. Unremarkable pulmonary vasculature. CARDIAC: Normal. No cardiac silhouette abnormality or cardiomegaly. MEDIASTINUM: Normal. No visible mass or adenopathy. PLEURA: Normal. No effusion or pleural thickening. BONES: Normal. No fracture or visible bony lesion. OTHER: Negative. CONCLUSION: No acute disease. Dictated by: Charlotte Gipson MD on 01/29/2025 at 4:04 Approved by: Charlotte Gipson MD on 01/29/2025 at 4:05 [facility] CNOVon 01-05-2025 CNOV Office Visit (SLEWST ) -------- JAMMIE GONZALEZ ([id number]) 1985 F Date Time Provider Department 01/05/25 1:30 PM BALAJI BETH During your visit today, we recorded the following information about you: Pulse Respiration Blood pressure Weight 72/minute 18/minute 102/69 82.6 kg Balaji Beth APRN.AURICULOTHERAPIST 01/05/2025 5:17 PM Signed [facility] Follow up/ Established patient visit Date of last visit : 10/11/2024 The following Impression/Plan was copied and pasted from the patient's last [facility] visit on 10/11/24: ASSESSMENT/PLAN: 1. Idiopathic hypersomnia - ICD9: 780.54, ICD10: G47.11 (primary diagnosis) Patient not improving with combination of meds as above. Reviewed prior meds and pt did best when on Nuvigil 250mg QAM except for difficulties sleeping due to mind not shutting off on such dose. However, that was prior to being on many of those meds she now takes for mood. Thus, question if those racing thoughts would no longer be an issues. D/w pt and will try again on Nuvigil 250mg QAM. SE and ADRs d/w pt. Note will be stopping Sunosi. No tremors noted on exam, but appears certain meds such as Vyvanse cause tremors in pt the past and suspect based on history Sunosi is doing the same. Advised pt not to drive or operate heavy machinery if sleepy. 2. LORENA on CPAP - ICD9: 327.23, ICD10: G47.33 Overall, no complaints regarding PAP. She is aware of the need to and benefits of wearing PAP nightly. Again, only reason does not wear is if she was to fall asleep prior to getting into bed. Later, due to leak and patient complaining of some discomfort on the bridge of the nose, performed a mask fit, and provided pt with an Anabel FFM which she feels is more comfortable than her current mask. Reminded pt to clean and replace equipment regularly. Encouraged weight loss. 3. On stimulant medication - ICD9: V58.69, ICD10: Z79.899 - ECG INTERPRETATION AND REPORT ONLY - TOXICOLOGY SCREEN, ROUTINE URINE Migel King MD Here for follow up for idiopathic hypersomnia, LORENA Off Sunosi due to tremor On armodafinil 250 mg daily now. Can fall asleep, doesn't cause insomnia. No tremor. She is satisfied with this treatment for now. Feels like it is a band-aid. But on an emotional roller coaster now with upcoming high school graduation for her daughter. Sometimes wakes up and is dreaming, takes a few seconds to realize that it isn't real Has sleep inertia, that's what bothers her the most Drinks a Celsius mid-morning, might have a second before noon Working 2 jobs, might add a 3rd to help a friend--Zofia in AM, kait in afternoon, maybe a friend's restaurant weekend nights SLEEP APNEA Sleep apnea type : LORENA, Most Recent Apnea-Hypopnea Index (AHI): ? Treatment : PAP therapy DME: Renae PAP History: Current PAP settin-15 cm H2O. -------- ------ HYPERSOMNIA : Idiopathic Hypersomnia PSG/MSLT performed several yrs ago at Dr Kaplan's sleep lab. PSG was performed on CPAP 8 cm, REM latency was observed at 98-minutes, MSLT showed a mean sleep latency 11 minutes, 0 SOREMs were noted. Medications included Abilify, Nuvigil, Prozac, Topamax Drowsy driving: gets sleepy, no accidents Current medications: Armodafinil 250 mg #30 last filled 12/23/24 PDMP website checked and validated. All prescriptions have been APPROPRIATELY filled. No suspicious activity was identified. 01/05/2025 by Balaji Beth APRN.AURICULOTHERAPIST Treatment history: Sunosi -- tremors Modafinil -- not effective Adderall xr worsened mood Adderall was stopped due to weight loss Vyvanse tremor L hand was worse 10/11/24 ECG NORMAL SINUS RHYTHM NORMAL ECG Latest Reference Range AND Units 10/11/24 10:42 Amphetamines Negative Negative Barbiturates Negative Negative Benzodiazepines Urine Negative Negative Cocaine Urine Negative Negative Cannabinoids, Urine Negative Negative Ethanol, Urine <11 mg/dL <11 Opiates Negative Negative Phencyclidine Negative Negative Oxycodone, Urine Negative Negative SLEEP HYGIENE QUESTIONS: Bedtime : 930 pm Wake up Time : 430 AM when gets up, might go back to sleep until 630 AM Time it takes to fall sleep : immediate Number of times patient wakes up per night : not usually Estimated total sleep time ( in a 24 hour period of time) : 7-8 (used to get 13 before getting the second job) Naps : if not working PATIENT-ENTERED QUESTIONNAIRE SLEEP SCORES 01/02/2025 Sleep Questions Reason for visit: Excessive daytime sleepiness Average hours of CPAP per night: 6 Percent of nights CPAP used at least 4 hours: 75 Accidents or near accidents due to drowsy drivin 08/29/2024 10/05/2024 01/02/2025 [place] Sleepiness Scale Score 20 (Excessive daytime sleepine (more content not included)... Normal [facility] CPKon 11-04-2024 CPK 127 U/L Normal 26 - 192 [facility] Comment on above: Performed By: #### 2 [id number] #### [facility],[address] [place] [address] HEPATIC FUNCTION PANELon Albumin [Mass/Vol] 3.5 g/dL Normal 3.4 - 5.0 [facility] Comment on above: Performed By: #### 2 11524 #### [facility],[address] [place] [address] ALK PHOS 94 U/L Normal 46 - 116 [facility] Comment on above: Performed By: #### 2 94430 #### [facility],[address] [place] [address] ALT [Catalytic activity/Vol] 29 U/L Normal 16 - 63 [facility] Comment on above: Performed By: #### 2 36901 #### [facility],[address] [place] [address] AST [Catalytic activity/Vol] 20 U/L Normal 13 - 39 [facility] Comment on above: Performed By: #### 2 37730 #### [facility],[address] [place] [address] Bilirubin [Mass/Vol] 0.3 mg/dL Normal 0.2 - 1.0 [facility] Comment on above: Performed By: #### 2 65750 #### [facility],[address] [place] [address] Bilirubin.direct [Mass/Vol] 0.1 mg/dL Normal 0.0 - 0.2 [facility] Comment on above: Performed By: #### 2 83198 #### [facility],[address] [place] [address] Hepatic function 2000 panel Normal [facility] Comment on above: Result Comment: HEPA TIC FUNCTION PROFILE Performed By: #### 2 73779 #### [facility],[address] [place] [address] Protein [Mass/Vol] 7.2 g/dL Normal 6.4 - 8.2 [facility] Comment on above: Performed By: #### 2 30094 #### [facility],[address] [place] [address] LIPID PROFILEon 11-04-2024 Cholesterol [Mass/Vol] 178 mg/dL Normal 0 - 240 [facility] Comment on above: Performed By: #### 2 96586 #### [facility],[address] [place] [address] Cholesterol in HDL [Mass/Vol] 61 mg/dL High 40 - 60 [facility] Comment on above: Performed By: #### 2 30324 #### [facility],[address] [place] [address] Cholesterol in LDL [Mass/Vol] 100 mg/dL Normal 0 - 129 [facility] Comment on above: Performed By: #### 2 56131 #### [facility],[address] [place] [address] Cholesterol.total/Chol esterol in HDL [Mass ratio] 2.9 {ratio} Normal 0.0 - 5.0 [facility] Comment on above: Performed By: #### 2 68269 #### [facility],[address] [place] [address] Lipid 1996 panel Normal [facility] Comment on above: Result Comment: LIPI D PROFILE Performed By: #### 2 37150 #### [facility],[address] [place] [address] Triglyceride [Mass/Vol] 84 mg/dL Normal 0 - 150 [facility] Comment on above: Performed By: #### 2 51205 #### [facility],[address] [place] [address] MICHELOVon 10-11-2024 CNOV Office Visit (LIZ ) -------- JAMMIE GONZALEZ ([id number]) 1985 F Date Time Provider Department 10/11/24 9:20 AM MIGEL KING JR During your visit today, we recorded the following information about you: Pulse Blood pressure Weight 67/minute 109/74 82.7 kg Floyd Oakes LPN 10/11/2024 10:21 AM Signed Migel King Jr., MD 10/11/2024 10:21 AM Signed ESTABLISHED PATIENT VISIT CHIEF COMPLAINT: Follow Up HISTORY OF PRESENT ILLNESS: Jammie Gonzalez is a 38 year old female, BMI 30.35 kg/m2 with a PMH significant for and per last office visit with Bebo Beth CP on 09/01/24: Idiopathic hypersomnia (primary encounter diagnosis) Lorena on cpap Jammie Gonzalez is a 38 year old female with PMH of idiopathic hypersomnia, LORENA on CPAP, depression (has psychiatrist and therapist), HLD. LORENA is controlled with PAP therapy, she reports subjective benefits. Hypersomnia is better managed with combination of Sunosi and armodafil but she still has significant sleepiness with ESS 20/24; especially sleepy in the afternoon and when driving home from work at 5-6 PM. PLAN: - Continue Auto CPAP at 8-15 cmH2O. Recommend using it all night every night. - Remember to clean your mask and equipment regularly, as directed. - You should be eligible for new supplies approximately every 3-6 months, depending on your insurance coverage. Contact your [employer] (DME) company for new supplies as needed. - Avoid driving when drowsy. - trolley car overhauler for short naps (20-30 minutes) and use of caffeine if needed to help stay awake when driving. - Try to get at least 7-9 hours of sleep in a 24 hour period. Healthy diet and exercise can also promote better sleep. - CBTH wasn't helpful - For sleep inertia can try taking morning meds earlier, when she gets up with her - Continue Sunosi 150 mg QAM - Increase armodafinil 100 mg from QAM to BID, will see if that helps with feeling better in the afternoon as well as driving home after work. Consider increasing armodafinil dose if needed. She had adverse effects from stimulants. - ECG today, NSR - UTOX at next appointment This is my first time seeing patient. Prior records from Sleep Med Dept reviewed. Prior meds: Provigil not effective Nuvigil 2 yrs efficacy waned, couldn't fall asleep at night Adderall xr worsened mood Adderall was stopped due to weight loss Vyvanse tremor L hand was worse PAP data download up to 10/07/24 showed 74/90 days sued for avg of 6 hours and 38 minutes. Set at 8-15 cmH2O. AHI is 0.7. 95% pressure is 9.5 cmH2O. 95% leak is 33.4 LPM. PHQ 9 Data More data exists 10/05/2024 08/29/2024 04/04/2024 PHQ-9 All Questions Little interest or pleasure in doing things: 3 3 3 Feeling down, depressed, or hopeless: 3 3 3 Trouble falling or staying asleep, or sleeping too much 3 3 3 Feeling tired or having little energy 3 3 3 Poor appetite or overeating 1 3 3 Feeling bad about yourself - or that you are a failure or have let yourself or your family down 3 3 3 Trouble concentrating on things, such as reading the newspaper or watching television 3 3 3 Moving or speaking so slowly that other people could have noticed. Or the opposite - being so fidgety or restless that you have been moving around a lot more than usual 3 3 2 Thoughts that you would be better off , or of hurting yourself in some way 0 0 0 PHQ-9 Score 22 24 23 Details DAMIAN 7 Data 07/23/2023 DAMIAN-7 All Questions Feeling nervous, anxious, or on edge Several days Not being able to stop or control worrying Several days Details PROMIS-10 More data exists PROMIS Global Health - (T-Scores - the mean of general population = 50. Five points is a clinically meaningful difference.) Physical T-Score Mental T-Score 08/29/2024 37.4 28.4 04/04/2024 37.4 28.4 01/04/2024 42.3 33.8 Details [place] Sleepiness Scale Scores More data exists 10/05/2024 08/29/2024 04/04/2024 [place] Sleepiness Scale Score 22 Abnormal 20 Abnormal 21 Abnormal Details Insomnia Severity Index Scores More data exists 08/29/2024 04/04/2024 07/23/2023 Insomnia Severity Index Score 20 16 16 Pt states if does not use PAP its due to dozing off on couch. Feels more refreshed even if using PAP therapy. Tired all the time. Exhausted. No time of day more awake than others. Going to bed about 9-10AM; no issues falling asleep, no RLS. Wakes about 430AM with and takes meds, and then stays in bed until about 630AM. Then goes to work from 7-11AM. Then from noon until 5PM works at a [employer] (just for purpose of staying awake). In the AM, has to eat while driving to stay awake with windows down. So long as moving she is good. As soon as sits down, wants to go to sleep. Never fell asleep driving. States Sunosi originally made feel better and then nothing. If combines Sunosi with Nuvigil, slight benefi (more content not included)... Normal [facility] [id number] 10-11-2024 ECG01 Ventricular Rate : 6 4 BPM Atrial Rate : 64 BPM P-R Interval : 146 ms QRS Duration : 76 ms Q-T Interval : 422 ms QTC Calculation(Bazett) : 435 ms Calculated P Surry : 61 degrees Calculated R Surry : 52 degrees Calculated T [place] : 43 degrees NORMAL SINUS RHYTHM NORMAL ECG Confirmed by MD NGUYEN GREGORY () on 10/13/2024 11:17:39 AM NAME : JAMMIE GONZALEZ PID : [id number] : 1985 Gender : Female Race : ORD : Procedure Date : Oct 11 2024 10:27:11 Edit Date : Oct 13 2024 11:17:43 Diagnosis: NORMAL SINUS RHYTHM NORMAL ECG Confirmed by MD NGUYEN GREGORY () on 10/13/2024 11:17:39 AM Test Reason : Location : 136 : [facility] Overread By : MD NGUYEN GREGORY Edited By : MD NGUYEN GREGORY Referred By : , Acquired by : Floyd Jackson, [place] [facility] TOXICOLOGY SCREEN, ROUTINE U RINEon 10-11-2024 Amphetamines Confirm (U) [Mass/Vol] Negative Normal Negative [facility] Comment on above: Order Comment: Speci men Type: URINE SPECIMEN Ordering Facility: [facility] Address: [address] [place] [address] Result Comment: Cuto ff threshold at 1000 ng/mL. Performed By: #### U TOX2 #### [facility] CLIA [id number] [address] [place] [address] [place] [address] [place] BARBITURATES, URINE Negative Normal Negative [facility] Comment on above: Order Comment: Speci men Type: URINE SPECIMEN Ordering Facility: [facility] Address: [address] [place] [address] Result Comment: Cuto ff threshold at 200 ng/mL. Performed By: #### U TOX2 #### [facility] CLIA [id number] [address] [place] [address] [place] BENZODIAZEPINES, UR Negative Normal Negative [facility] Comment on above: Order Comment: Speci men Type: URINE SPECIMEN Ordering Facility: [facility] Address: [address] [place] [address] Result Comment: Cuto ff threshold at 200 ng/mL. Performed By: #### U TOX2 #### [facility] CLIA [id number] [address] [place] [address] [place] Cannabinoids Screen Ql (U) Negative Normal Negative [facility] Comment on above: Order Comment: Speci men Type: URINE SPECIMEN Ordering Facility: [facility] Address: [address] [place] [address] Result Comment: Cuto ff threshold at 50 ng/mL. Performed By: #### U TOX2 #### [facility] CLIA [id number] [address] [place] [address] [place] Cocaine Ql (U) Negative Normal Negative [facility] Comment on above: Order Comment: Speci men Type: URINE SPECIMEN Ordering Facility: [facility] Address: [address] [place] [address] Result Comment: Cuto ff threshold at 300 ng/mL. Performed By: #### U TOX2 #### [facility] CLIA [id number] [address] [place] [address] [place] Ethanol (U) [Mass/Vol] <11 Normal <11 [facility] Comment on above: Order Comment: Speci men Type: URINE SPECIMEN Ordering Facility: [facility] Address: [address] [place] [address] Performed By: #### U TOX2 #### [facility] CLIA [id number] [address] [place] [address] [place] Opiates Screen Ql (U) Negative Normal Negative [facility] Comment on above: Order Comment: Speci men Type: URINE SPECIMEN Ordering Facility: [facility] Address: [address] [place] [address] Result Comment: Cuto ff threshold at 300 ng/mL. Performed By: #### U TOX2 #### [facility] CLIA [id number] [address] [place] [address] [place] oxyCODONE cutoff Screen (U) [Mass/Vol] Negative Normal Negative [facility] Comment on above: Order Comment: Speci men Type: URINE SPECIMEN Ordering Facility: [facility] Address: [address] [place] [address] Result Comment: Cuto ff threshold at 100 ng/mL. Performed By: #### U TOX2 #### [facility] [place] [id number] [address] [place] [address] [place] Phencyclidine Ql (U) Negative Normal Negative [facility] Comment on above: Order Comment: Speci men Type: URINE SPECIMEN Ordering Facility: [facility] Address: [address] [place] [address] Result Comment: Cuto ff threshold at 25 ng/mL. Performed By: #### U TOX2 #### [facility] [place] [id number] [address] [place] [address] [place] CT ABDOMEN/PELVIS W/WOon CT ABDOMEN/PELVIS W/WO [place] [address] Patient: JAMMIE GONZALEZ Phone#: : 1985 Age: 38 Gender: F Pt. Type: Out Account: [id number] Location: Ordering: Raudel RODRIGUEZ Exam Date: 10/06/2024/8:19 Family Phys: KIMBERLEE CHAVEZ Charge Code: [id number] Physician: Oxford Order #: [id number] Dose#: [id number] PROCEDURE: CT ABDOMEN/PELVIS WITH AND WITHOUT CONTRAST COMPARISON: None. INDICATIONS: Hematuria/Generalized abdominal pain. TECHNIQUE: After obtaining the patient's consent, CT images of the abdomen were created with oral contrast and without and with non-ionic intravenous contrast material, and CT images of the pelvis were obtained with non-ionic intravenous contrast material. All CT scans at this facility use dose modulation, iterative reconstruction, and/or weight based dosing when appropriate to reduce radiation dose to as low as reasonably achievable. IV CONTRAST: Omnipaque 350,80ml TOTAL DOSE: 21.00 CTDIvol(mGy) FINDINGS: LIVER: Fatty changes of the liver are present. No enlargement, atrophy, abnormal density, or significant focal lesion. BILIARY: The gallbladder is absent. Surgical clips are present in the gallbladder fossa. PANCREAS: Normal. No lesion, fluid collection, ductal dilatation, or atrophy. SPLEEN: Normal. No enlargement or focal lesion. KIDNEYS: Normal. No mass, obstruction, or calcification. ADRENALS: Normal. No mass or enlargement. AORTA/VASCULAR: Normal. No aneurysm or dissection. RETROPERITONEUM: Normal. No mass or adenopathy. BOWEL/MESENTERY: Normal. No visible mass, obstruction, or bowel wall thickening. ABDOMINAL WALL: Normal. No mass or hernia. URINARY BLADDER: Normal. No visible focal wall thickening, lesion, or calculus. PELVIC NODES: Normal. No adenopathy. PELVIC ORGANS: The uterus is retroverted. No visible mass. Pelvic organs appropriate for patient age. BONES: Normal. No bony lesion or fracture. LUNG BASES: Normal. No visible pulmonary or pleural disease. OTHER: Negative. Continued Report - Page 2 of 2 Patient: JAMMIE GONZALEZ Phone#: : 1985 Age: 38 Gender: F Pt. Type: Out Account: [id number] Location: Ordering: Raudel RODRIGUEZ Exam Date: 10/06/2024/8:19 Family Phys: KIMBERLEE CHAVEZ Charge Code: [id number] Physician: Oxford Order #: [id number] Dose#: [id number] CONCLUSION: 1. There is moderate stool retention. 2. There is no evidence of acute abdominal or pelvic abnormality. Dictated by: Charlotte Gipson MD on 10/06/2024 at 16:17 Approved by: Charlotte Gipson MD on 10/06/2024 at 16:21 Normal [facility] Urine Cultureon 09-15-2024 URC Mixed Gram Positive Organisms [place] Count 11,000-25,000 MIXC Mixed contaminants. Submit a new specimen if indicated. Normal [facility] Comment on above: Performed By: #### M 100.2200 #### [facility] [address] [place], [address] CNOVon 09-01-2024 CNOV Office Visit (SLEWST ) -------- JAMMIE GONZALEZ ([id number]) 1985 F Date Time Provider Department 09/01/24 1:30 PM BALAJI BETH During your visit today, we recorded the following information about you: Pulse Blood pressure Weight 75/minute 103/70 81.9 kg Balaji Beth APRN.CNP 09/01/2024 4:05 PM Signed [facility] Follow up/ Established patient visit Date of last visit : 04/09/2024 The following Impression/Plan was copied and pasted from the patient's last [facility] visit on 04/09/24: IMPRESSION/PLAN: Idiopathic hypersomnia (primary encounter diagnosis) Lorena on cpap Jammie Gonzalez is a 38 year old female with idiopathic hypersomnia, LORENA on CPAP. PMH of depression--currently under good control. Continue Sunosi 150 mg QAM Add armodafanil 200 mg take 1/2 tab, may need to adjust time of day to get best coverage but no interference with sleep Follow up 3 mos with me, [address] King (60 min appointment) Consider redo MSLT to see if MSL <8 min, if so then can try sodium oxybate - Continue Auto CPAP - Avoid driving when drowsy. - trolley car overhauler for short naps (20-30 minutes) and use of caffeine if needed to help stay awake when driving. - Try to get at least 7-9 hours of sleep in a 24 hour period. Healthy diet and exercise can also promote better sleep. Balaji Beth APRN.AURICULOTHERAPIST Here for follow up for idiopathic hypersomnia, LORENA The combination of Sunosi 150 mg and armodafinil 100 mg is definitely helpful but if she sits down then she will fall asleep. She takes both meds at 630 AM. Feels like she needs more medication by 1 PM. Drinks Celcius at 1130 AM. No adverse med effects. Has significant sleep inertia. 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 But when she gets in her car she is very sleepy, takes 30 minutes or so to get home, not falling asleep at the wheel but it is a struggle. HYPERSOMNIA : Idiopathic Hypersomnia Cataplexy: No Hypnagogic hallucinations: No Dream enactment behaviors: No Sleep related injuries: No Wakes up screaming, doesn't know if dreaming, doesn't always remember this happening, occurs 1-2x per night No RLS Current medications: Armodafinil 200 mg #15 last filled 08/23/24 Sunosi 150 mg #30 last filled 08/22/24 PDMP website checked and validated. All prescriptions have been APPROPRIATELY filled. No suspicious activity was identified. 09/01/2024 by Balaji Beth APRN.[facility] Treatment history: Provigil not effective Nuvigil 2 yrs efficacy waned, couldn't fall asleep at night Adderall xr worsened mood Adderall was stopped due to weight loss Vyvanse tremor L hand was worse 06/04/23 ECG NSR at [place] Latest Reference Range AND Units 11/04/22 16:20 Amphetamines Negative Preliminary positive ! Barbiturates Negative Negative Benzodiazepines Urine Negative Negative Cocaine Urine Negative Negative Cannabinoids, Urine Negative Negative Ethanol, Urine <11 mg/dL <11 Opiates Negative Negative Phencyclidine Negative Negative Oxycodone, Urine Negative Negative !: Data is abnormal SLEEP APNEA Sleep apnea type : LORENA, Most Recent Apnea-Hypopnea Index (AHI): ? Treatment : PAP therapy DME: [employer] PAP History: Sometimes falls asleep before putting PAP on Uses 6 hrs/night, 5 nights/week Current PAP settin-15 cm H2O. Difficulties with AutoPAP: None Reviewed objective PAP compliance data: AHI<1 Mask type: full face mask Mask issues: none There is a perceived benefit by the patient -------- ------ SLEEP HYGIENE QUESTIONS: Bedtime : 930 pm Wake up Time : 430 AM when gets up, tries to stay up but falls back asleep until about 630 AM Time it takes to fall sleep : immediate Number of times patient wakes up per night : not usually Estimated total sleep time ( in a 24 hour period of time) : 7-8 (used to get 13 before getting the second job) Naps : Sundays and if she can on Wednesdays (so days when she isn't working) -- for 3 hrs, not refreshing PATIENT-ENTERED QUESTIONNAIRE SLEEP SCORES 08/29/2024 Sleep Questions Reason for visit: Sleep apnea Difficulty falling or staying asleep or poor sleep quality Excessive daytime sleepiness Average hours of CPAP per night: 4 Percent of nights CPAP used at least 4 hours: 85 Accidents or near accidents due to drowsy drivin Multiple values from one day are sorted in reverse-chronological order 01/04/2024 04/04/2024 08/29/2024 [place] Sleepiness Scale Score 22 (Excessive daytime sleepiness present) 21 (Excessive daytime sleepiness present) 20 (Excessive daytime sleepiness present) 01/04/2024 04/04/2024 08/29/2024 PROMIS CAT Sleep Disturbance PROMIS Sl (more content not included)... Normal [facility] Bacteria Ur Culton 4 Bacteria identified Cx Nom (U) ORGANISM ID: 1 10,000 -<50,000 CFU/ml Normal urogenital stefani Normal [facility] Comment on above: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 (patient/designee)Dutch keith Advanced Directives: Advance Directive/DNRno Family Violence Adult: Abuse Screen: Are you or have you been threatened or abused physically, emotionally, or sexually by anyoneno Learning Assessment (Patient): Learning Assessment (Patient): Patient is Able to be Assessed for Learningyes Factors Influencing Readiness to Learnn/a Factors that Impact Ability to Learnnone Devices/Methods Used to Communicatenone Learning Preferencesverbal instruction; written material Cultural Considerationsnone Developmental Considerationsnone Evangelical Considerationsnone Learning Assessment (Other Learner): Learning Assessment (Other Learner): Other learner availableyes... Learnerfriend Factors Influencing Readiness to Learnn/a Factors that Impact Ability to Learnnone Devices/Methods Used to Communicatenone Learning Preferencesverbal instruction, written material Cultural Considerationsnone Developmental Considerationsnone Evangelical Considerationsnone Pressure Injury/TB/Substance: Pressure Injury: Do you have a coughno Substance Use Current or Former HistoryYES: Alcohol Alcohol Useoccasionally Admission Risk Screen: Significant IndicatorsComplete CAGE: CAGE: Is this an injured patient at a Trauma Center ([facility]/[place] /[place]): no Electronic Signatures: Anjali Whiteside (RN) (Signed 07-Oct-2019 09:48) Authored: Preferred Language, Advanced Directives, Family Violence Adult, Learning Assessment (Patient), Learning Assessment (Other Learner), Pressure Injury/TB/Substance, CAGE Last Updated: 07-Oct-2019 09:48 by Anjali Whiteside (RN) [facility] Triage - EDon 10-07-2019 Triage - ED Quick Triage: Are You no Have You Given In The Last 6 Weeksno Are You Currently Breastfeedingno Chart Review: CHIEF COMPLAINT JAMMIE GONZALEZ is a Female patient with a chief complaint of head injury (states while helping restrain someone, she back and hit her head on a chair, then the floor. denies loc. c/ol nausea and dry heaves). Triage Date/Time: 07-Oct-2019 09:26 Pain Rating (0-10): 10 = Severe Pain location: head Vital Signs: Temperature: 98.2F ( 36.7C) taken oral Blood Pressure: 119/83 Mean: Heart Rate: 74 Respiratory Rate: 16 Pulse Oximetry: 100% on room air, no respiratory support. Height: 5 feet 4.00 inches. 162.5 CM Weight: 135.0 pounds. Calculated 61.2 kg. (stated) Calculated BMI (kg/m2): 23.176 Calculated BSA (m2) 1.66 Kat Coma Scale: Best Eye Response: (E4) spontaneous Best Motor Response: (M6) obeys commands Best Verbal Response: (V5) oriented Kat Score: 15 Cough lasting greater than 3 weeks: no Travel outside of [place]: no Allergies: no Patient has homicidal thoughts: no Risk Screens Suicide Risk Screen In the Past Month: Have you wished you were or wished you could go to sleep and not wake up no In the Past Month: Have you had any actual thoughts of killing yourself no In Your Lifetime: Have you ever done anything, started to do anything, or prepared to do anything to end your life no Shi Fall Scale Screening Has the patient fallen before (or is the patient in the ED as a result of a fall) has not had a fall Does the patient have an impaired gait does not have impaired gait Is the patient cognitively impaired not cognitively impaired Interventions: Shi Fall Interventions: *patient oriented to surroundings and call system, * patient/family falls education completed and documented, *patients fall status communicated during bedside handoff, *whiteboard updated, *mode of toileting discussed with patient, *bed in low position with brakes locked, *call light in reach, * non-skid footwear PAIN Pain Scale Used: JAIME Pain Rating (0-10): 10 = Severe ARRIVAL INFORMATION Means of Arrival: Ambulatory Mode of Arrival: private vehicle Arrival From: workplace Accompanied By: self Language: Spoken Language Preferred: French Reading Language Preferred: French Present on Arrival: Device Present on Arrival to ED: no PRIMARY ASSESSMENT JAMMIE Thomas GONZALEZ's primary assessment is Within Normal Limits. The airway is open and patent. Breathing spontaneous and unlabored with clear breath sounds bilaterally. Circulation is normal with good peripheral pulses. Skin is warm and dry and color is normal for race. TRAVEL HISTORY Travel Exposure History: NO travel to International locations in the past 30 days Past Medical History: Past Medical History Reviewedyes Electronic Signatures: Halle Medina (KENNETH) (Signed 07-Oct-2019 10:09) Authored: Triage Anjali Whiteside) (Signed 07-Oct-2019 09:46) Authored: Triage, Past Medical History Last Updated: 07-Oct-2019 10:09 by Halle Medina (KENNETH) Normal [facility] Vital Signs Date Time Vital Sign Value Performing Clinician Facility 01-05-2025 13:30-0400 Body mass index (BMI) [Ratio] 30.29 kg/m2 Balaji Beth APRN.AURICULOTHERAPIST Work Phone: [facility] 01-05-2025 13:30-0400 Body weight 82.56 kg Balaji Kirit BOWLING OR SKATING FRONT DESK CLERK.AURICULOTHERAPIST Work Phone: [facility] 01-05-2025 13:30-0400 Diastolic blood pressure 69 mm[Hg] Balaji Kirit BOWLING OR SKATING FRONT DESK CLERK.AURICULOTHERAPIST Work Phone: [facility] 01-05-2025 13:30-0400 Heart rate 72 /min Balaji Kirit BOWLING OR SKATING FRONT DESK CLERK.AURICULOTHERAPIST Work Phone: [facility] 01-05-2025 13:30-0400 Respiratory rate 18 /min Balaji Kirit BOWLING OR SKATING FRONT DESK CLERK.AURICULOTHERAPIST Work Phone: [facility] 01-05-2025 13:30-0400 SaO2% (BldA) [Mass fraction] 98 % Balaji Kirit BOWLING OR SKATING FRONT DESK CLERK.AURICULOTHERAPIST Work Phone: [facility] 01-05-2025 13:30-0400 Systolic blood pressure 102 mm[Hg] Balaji Kirit BOWLING OR SKATING FRONT DESK CLERK.AURICULOTHERAPIST Work Phone: [facility] 10-11-2024 09:27-0500 Body mass index (BMI) [Ratio] 30.35 kg/m2 Migel King Jr., MD Work Phone: [facility] 10-11-2024 09:27-0500 Body weight 82.74 kg Migel King Jr., MD Work Phone: [facility] 10-11-2024 09:27-0500 Diastolic blood pressure 74 mm[Hg] Migel King Jr., MD Work Phone: [facility] 10-11-2024 09:27-0500 Heart rate 67 /min Migel King Jr., MD Work Phone: [facility] 10-11-2024 09:27-0500 SaO2% (BldA) [Mass fraction] 98 % Migel King Jr., MD Work Phone: [facility] 10-11-2024 09:27-0500 Systolic blood pressure 109 mm[Hg] Migel King Jr., MD Work Phone: [facility] 09-01-2024 13:27-0500 Body mass index (BMI) [Ratio] 30.05 kg/m2 Balaji Kriit BOWLING OR SKATING FRONT DESK CLERK.AURICULOTHERAPIST Work Phone: [facility] 09-01-2024 13:27-0500 Body weight 81.92 kg Balaji Kirit BOWLING OR SKATING FRONT DESK CLERK.AURICULOTHERAPIST Work Phone: [facility] 09-01-2024 13:27-0500 Diastolic blood pressure 70 mm[Hg] Balaji Kirit BOWLING OR SKATING FRONT DESK CLERK.AURICULOTHERAPIST Work Phone: [facility] 09-01-2024 13:27-0500 Heart rate 75 /min Balaji Kirit BOWLING OR SKATING FRONT DESK CLERK.AURICULOTHERAPIST Work Phone: [facility] 09-01-2024 13:27-0500 SaO2% (BldA) [Mass fraction] 98 % Balaji Kirit BOWLING OR SKATING FRONT DESK CLERK.AURICULOTHERAPIST Work Phone: [facility] 09-01-2024 13:27-0500 Systolic blood pressure 103 mm[Hg] Balaji Kirit BOWLING OR SKATING FRONT DESK CLERK.AURICULOTHERAPIST Work Phone: [facility] 04-09-2024 14:25-0400 Body mass index (BMI) [Ratio] 31.65 kg/m2 Balaji Kirit BOWLING OR SKATING FRONT DESK CLERK.AURICULOTHERAPIST Work Phone: [facility] 04-09-2024 14:25-0400 Body weight 86.27 kg Balaji Kirit BOWLING OR SKATING FRONT DESK CLERK.AURICULOTHERAPIST Work Phone: [facility] 04-09-2024 14:25-0400 Diastolic blood pressure 63 mm[Hg] Balaji Kirit BOWLING OR SKATING FRONT DESK CLERK.AURICULOTHERAPIST Work Phone: [facility] 04-09-2024 14:25-0400 Heart rate 82 /min Balaji Kirit BOWLING OR SKATING FRONT DESK CLERK.AURICULOTHERAPIST Work Phone: [facility] 04-09-2024 14:25-0400 Respiratory rate 16 /min Balaji Kirit BOWLING OR SKATING FRONT DESK CLERK.AURICULOTHERAPIST Work Phone: [facility] 04-09-2024 14:25-0400 SaO2% (BldA) [Mass fraction] 98 % Balaji Kirit BOWLING OR SKATING FRONT DESK CLERK.AURICULOTHERAPIST Work Phone: [facility] 04-09-2024 14:25-0400 Systolic blood pressure 94 mm[Hg] Balaji Kirit BOWLING OR SKATING FRONT DESK CLERK.AURICULOTHERAPIST Work Phone: [facility] 01-09-2024 13:52-0400 Body weight 85.46 kg Balaji Kirit BOWLING OR SKATING FRONT DESK CLERK.AURICULOTHERAPIST Work Phone: [facility] 01-09-2024 13:52-0400 Diastolic blood pressure 73 mm[Hg] Balaji Kirit BOWLING OR SKATING FRONT DESK CLERK.AURICULOTHERAPIST Work Phone: [facility] 01-09-2024 13:52-0400 Heart rate 77 /min Balaji Kirit BOWLING OR SKATING FRONT DESK CLERK.AURICULOTHERAPIST Work Phone: [facility] 01-09-2024 13:52-0400 Respiratory rate 18 /min Balaji Kirit BOWLING OR SKATING FRONT DESK CLERK.AURICULOTHERAPIST Work Phone: [facility] 01-09-2024 13:52-0400 SaO2% (BldA) [Mass fraction] 98 % Balaji Kirit BOWLING OR SKATING FRONT DESK CLERK.AURICULOTHERAPIST Work Phone: [facility] 01-09-2024 13:52-0400 Systolic blood pressure 108 mm[Hg] Balaji Kirit BOWLING OR SKATING FRONT DESK CLERK.AURICULOTHERAPIST Work Phone: [facility] 06-04-2023 13:02-0400 Body height 165.[address] Kimberlee Chavez Work Phone: [facility] 06-04-2023 13:02-0400 Body mass index (BMI) [Ratio] 30.9 kg/m2 Dr. Kimberlee Chavez Work Phone: [facility] 06-04-2023 13:02-0400 Body weight 84.[address] Kimberlee Chavez Work Phone: [facility] 06-04-2023 13:02-0400 Diastolic blood pressure 61 mm[Hg] Dr. Kimberlee Chavez Work Phone: [facility] 06-04-2023 13:02-0400 Heart rate 78 /min Dr. Kimberlee Chavez Work Phone: [facility] 06-04-2023 13:02-0400 Respiratory rate 18 /min Dr. Kimberlee Chavez Work Phone: [facility] 06-04-2023 13:02-0400 Systolic blood pressure 100 mm[Hg] Dr. Kimberlee Chavez Work Phone: [facility] 03-20-2023 14:30-0400 Diastolic blood pressure 64 mm[Hg] [facility] 03-20-2023 14:30-0400 Heart rate 55 /min [facility] 03-20-2023 14:30-0400 Respiratory rate 16 /min [facility] 03-20-2023 14:30-0400 SaO2% (BldA) [Mass fraction] 98 % [facility] 03-20-2023 14:30-0400 Systolic blood pressure 110 mm[Hg] [facility] 03-20-2023 13:08-0400 Body temperature 98.4 [degF] [facility] 03-20-2023 11:52-0400 Body height 165.1 cm [facility] 03-20-2023 11:52-0400 Body mass index (BMI) [Ratio] 29 kg/m2 [facility] 03-20-2023 11:52-0400 Body weight 79.2 kg [facility] 10-21-2022 11:57-0500 Body weight 73.94 kg Guille Gandara APRN.CNP Work Phone: [facility] 10-21-2022 11:57-0500 Diastolic blood pressure 77 mm[Hg] Guille Gandara APRN.CNP Work Phone: [facility] 10-21-2022 11:57-0500 Heart rate 113 /min Guille Gandara APRN.AURICULOTHERAPIST Work Phone: [facility] 10-21-2022 11:57-0500 SaO2% (BldA) [Mass fraction] 98 % Guille Gandara APRN.AURICULOTHERAPIST Work Phone: [facility] 10-21-2022 11:57-0500 Systolic blood pressure 129 mm[Hg] Guille Gandara APRN.AURICULOTHERAPIST Work Phone: [facility] 10-27-2019 14:07-0500 BMI (Body Mass Index) 24.3 kg/m2 [email or web address] 10-27-2019 14:07-0500 Body weight 66.22 kg [email or web address] 10-27-2019 14:07-0500 BP Diastolic 68 mm[Hg] [email or web address] 10-27-2019 14:07-0500 BP Systolic 100 mm[Hg] [email or web address] 10-27-2019 14:07-0500 Height 165.1 cm [email or web address] 10-27-2019 14:07-0500 Pulse (Heart Rate) 86 /min [email or web address] 10-27-2019 14:07-0500 Pulse Oximetry 98 % [email or web address] Encounters Encounter Date Encounter Type Care Provider Facility Start: 06-28-2025 ambulatory KIMBERLEE CHAVEZ [facility] Start: 05-04-2025 End: 05-04-[address] [facility] Start: 04-04-2025 End: 04-04-2025 Emergency department patient visit KIMBERLEE CHAVEZ [facility] Start: 02-16-2025 End: 02-20-2025 ambulatory JERRY RAINEY MD Facility:A Start: 02-16-2025 End: 02-20-2025 Encounter for gynecological examination (general) (routine) without abnormal findings JERRY RAINEY MD Facility:[facility] Start: 02-02-2025 End: 02-02-2025 ambulatory [facility] Start: 01-28-2025 End: 01-28-2025 [facility] Start: 01-25-2025 End: 01-25-2025 Refill Balaji Beth BOWLING OR SKATING FRONT DESK CLERK.AURICULOTHERAPIST Work Phone: Neurology Comment on above: Refill Request Start: 01-05-2025 End: 01-05-2025 Patient encounter procedure Balaji Beth BOWLING OR SKATING FRONT DESK CLERK.AURICULOTHERAPIST Work Phone: Neurology Comment on above: Idiopathic hypersomn ia (Primary Dx); LORENA on CPAP Start: 01-05-2025 End: 01-05-2025 ambulatory BALAJI KIRIT Facility:[facility] Start: 01-04-2025 End: 01-04-2025 ambulatory [facility] Start: 11-04-2024 End: 11-04-2024 [facility] Start: 10-14-2024 End: 07-14-2025 ambulatory Raudel RODRIGUEZ [facility] Start: 10-12-2024 End: 10-13-2024 ambulatory Migel King MD Work Phone: Neurology Comment on above: Mask Start: 10-11-2024 End: 10-11-2024 ambulatory MIGEL KING JR Facility:[facility] Start: 10-11-2024 End: 10-11-2024 ambulatory MIGEL KING JR Facility:[facility] Start: 10-11-2024 End: 10-11-2024 Patient encounter procedure Migel King MD Work Phone: Neurology Comment on above: Idiopathic hypersomn ia (Primary Dx); LORENA on CPAP; On stimulant medication Start: 10-06-2024 End: 10-06-2024 ambulatory [facility] Start: 10-06-2024 End: 10-06-2024 [facility] Start: 09-30-2024 End: 09-30-2024 ambulatory SANA DIAZ [facility] Start: 09-13-2024 End: 09-13-2024 ambulatory Kimberlee Chavez Facility:[facility] Start: 09-01-2024 End: 09-01-2024 Patient encounter procedure Balaji Kirit BOWLING OR SKATING FRONT DESK CLERK.AURICULOTHERAPIST Work Phone: Neurology Comment on above: Idiopathic hypersomn ia (Primary Dx); LORENA on CPAP Start: 09-01-2024 End: 09-01-2024 ambulatory BALAJI KIRIT Facility:[facility] Start: 08-18-2024 End: 08-18-2024 ambulatory [facility] Start: 07-24-2024 End: 07-24-2024 ambulatory KIMBERLEE Malcolm [facility] Start: 07-21-2024 End: 07-22-2024 Refill Balaji Kirit BOWLING OR SKATING FRONT DESK CLERK.AURICULOTHERAPIST Work Phone: Neurology Comment on above: Refill Request Start: 07-14-2024 End: 07-14-2024 ambulatory [facility] Start: 06-30-2024 End: 06-30-2024 ambulatory [facility] Start: 05-18-2024 End: 05-18-2024 ambulatory [facility] Start: 04-16-2024 Telephone encounter Balaji Kristyn orne BOWLING OR SKATING FRONT DESK CLERK.AURICULOTHERAPIST Work Phone: Neurology Comment on above: [employer] Start: 04-09-2024 End: 04-09-2024 Patient encounter procedure Balaji Kirit BOWLING OR SKATING FRONT DESK CLERK.AURICULOTHERAPIST Work Phone: Neurology Comment on above: Idiopathic hypersomn ia (Primary Dx); LORENA on CPAP Start: 04-02-2024 Telephone encounter Balaji Kristyn orne BOWLING OR SKATING FRONT DESK CLERK.AURICULOTHERAPIST Work Phone: Neurology Comment on above: PAP Therapy Follow U p Start: 03-15-2024 Refill Balaji Kirit BOWLING OR SKATING FRONT DESK CLERK.AURICULOTHERAPIST Work Phone: Neurology Comment on above: Refill Request Start: 02-26-2024 ambulatory Balaji Kirit BOWLING OR SKATING FRONT DESK CLERK.AURICULOTHERAPIST Work Phone: Neurology Comment on above: [place] Start: 01-19-2024 ambulatory Balaji Kirit BOWLING OR SKATING FRONT DESK CLERK.AURICULOTHERAPIST Work Phone: Neurology Comment on above: hypersomnia Start: 01-19-2024 E-mail encounter fro ness caregiver Balaji Beth JUDY.AURICULOTHERAPIST Work Phone: Neurology Start: 01-09-2024 End: 01-09-2024 Patient encounter procedure Balaji Beth JUDY.AURICULOTHERAPIST Work Phone: Neurology Comment on above: Idiopathic hypersomn ia (Primary Dx); LORENA on CPAP Start: 01-02-2024 Telephone encounter Balaji dwyer APRN.AURICULOTHERAPIST Work Phone: Neurology Comment on above: PAP Therapy Follow U p (12/03/23 - 01/01/24) Start: 12-28-2023 Refill Balaji Beth APRN.AURICULOTHERAPIST Work Phone: Neurology Comment on above: Refill Request Start: 10-06-2023 End: 08-10-2024 ambulatory Balaji Beth APRN.AURICULOTHERAPIST Work Phone: Neurology Comment on above: hypersomnia Start: 10-06-2023 End: 08-10-2024 E-mail encounter from caregiver Balaji Beth JUDY.AURICULOTHERAPIST Work Phone: Neurology Start: 08-06-2023 Telephone encounter Tonia howard MD Work Phone: Neurology Comment on above: Insurance Authorizat ion (Sunosi) Start: 08-04-2023 End: 08-04-2023 Telemedicine consultation with patient Tonia Worrell MD Work Phone: [facility] Start: 08-04-2023 End: 08-04-2023 ambulatory Tonia Worrell MD Work Phone: Neurology Comment on above: Gonzalez LORENA on CPAP (Primary Dx); Excessive daytime sleepiness; Severe major depression without psychotic features (HCC) Start: 08-04-2023 E-mail encounter fro m caregiver Tonia Worrell MD Work Phone: [facility] Start: 08-04-2023 Patient encounter procedure Tonia Worrell MD Work Phone: Neurology Comment on above: Request an Appointme nt Start: 06-26-2023 Non-patient / Non-visit Dr. Hossein Chavez Work Phone: [facility] Work Phone: Start: 06-25-2023 Non-patient / Non-visit Dr. Hossein Chavez Work Phone: [facility] Start: 06-25-2023 End: 06-25-[address] Kimberlee Chavez Work Phone: [facility] Work Phone: Start: 06-25-2023 End: 06-25-[address] Kimberlee Chavez Work Phone: [facility] Work Phone: Start: 06-16-2023 End: 06-16-[address] Kimberlee Chavez Work Phone: [facility] Work Phone: Start: 06-16-2023 End: 06-16-[address] Kimberlee Chavez Work Phone: [facility]-Laboratory, Specimen Work Phone: Start: 06-04-2023 End: 06-04-[address] 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) Start: 05-26-2023 End: 05-26-2023 ambulatory Tonia Worrell MD Work Phone: Neurology Comment on above: LORENA on CPAP (Primary Dx); Hypersomnia; Severe major depression without psychotic features (HCC) Start: 05-26-2023 End: 05-26-2023 Telemedicine consultation with patient Tonia Worrell MD Work Phone: [facility] Start: 05-19-2023 Telephone encounter Tonia howard MD Work Phone: Neurology Comment on above: PAP Therapy Follow U p (03/20/23 - 05/18/23 ) Start: 03-27-2023 End: 03-27-2023 ambulatory [facility] Work Phone: Start: 03-27-2023 End: 03-27-2023 Patient encounter procedure [facility]Sleep Lab Work Phone: Start: 03-20-2023 End: 03-20-2023 Admission to same day surgery center [facility] Start: 03-20-2023 End: 03-20-2023 ambulatory [facility] Work Phone: Start: 01-13-2023 End: 01-13-2023 ambulatory [facility] Work Phone: Start: 01-13-2023 End: 01-13-2023 Patient encounter procedure [facility]-Laboratory, Specimen Start: 01-03-2023 ambulatory Tonia Worrell MD Work Phone: Neurology Comment on above: ECG and MWT Start: 12-26-2022 ambulatory Tonia Worrell MD Work Phone: Neurology Comment on above: MSLT Start: 12-20-2022 End: 12-20-2022 ambulatory [facility] Work Phone: Start: 12-20-2022 End: 12-20-2022 Patient encounter procedure [facility]Laboratory, Specimen Start: 12-12-2022 Telephone encounter Tonia howard MD Work Phone: Neurology Comment on above: Hoop Maker Hel[employer] Machine - O ther (Follow up) Start: 12-09-2022 End: 12-09-2022 ambulatory Tonia Worrell MD Work Phone: Neurology Comment on above: LORENA on CPAP (Primary Dx); Hypersomnia; On stimulant medication; Severe major depression without psychotic features (HCC) Start: 12-09-2022 End: 12-09-2022 Telemedicine consultation with patient Tonia Worrell MD Work Phone: [facility] Start: 12-06-2022 Telephone encounter Tonia howard MD Work Phone: Neurology Comment on above: PAP Therapy Follow U p (DOWNLOAD) Start: 11-21-2022 ambulatory Tonia Worrell MD Work Phone: Neurology Comment on above: Jammie Gonzalez Start: 11-01-2022 Chart abstracting Actigraphy N eur (Hist) Neurology Start: 10-30-2022 Telephone encounter Tonia howard MD Work Phone: Neurology Comment on above: PAP Rx Faxed (DME Da sco); [employer] - Other Start: 10-29-2022 Telephone encounter Tonia howard MD Work Phone: Neurology Comment on above: Lab Orders Start: 10-25-2022 End: 10-25-2022 Patient encounter procedure [facility] Work Phone: [facility] Comment on above: Screening-pulmonary TB (Primary Dx) Start: 10-22-2022 Telephone encounter Guille piña BOWLING OR SKATING FRONT DESK CLERK.AURICULOTHERAPIST Work Phone: Neurology Comment on above: PAP Therapy Follow U p; Patient Update Received Outside [facility] Records (Titration, MSLT etc); [facility]. (Outside Medical Records) Start: 10-21-2022 End: 10-21-2022 Patient encounter procedure Guille Gandara BOWLING OR SKATING FRONT DESK CLERK.AURICULOTHERAPIST Work Phone: Neurology Comment on above: Obstructive sleep ap clint (Primary Dx); Excessive daytime sleepiness Start: 10-27-2019 End: 10-27-2019 Office outpatient visit 15 minutes Francesco Claros Work Phone: [facility] Comment on above: Severe recurrent betty or depression without psychotic features (HCC) Start: 10-05-2019 End: 10-05-2019 Refill Francescogabriel Claros Work Phone: [facility] Comment on above: Severe recurrent betty or depression without psychotic features (HCC) Start: 03-03-2018 Ambulatory [facility] Procedures Date Procedure Procedure Detail Performing Clinician Start: 01-04-2025 Follow-up visit Follow-up VINICIUS BRICENO Start: 10-11-2024 Ecg routine ecg w/le ast 12 lds i&r only [facility] Provider Start: 03-20-2023 Leealfredo Merrill (Not Applicable) Start: 11-20-2022 Actigraphy testing recording analysis i&r Toniafahad Worrell MD Work Phone: Start: 10-27-2019 Adult depression scr eening assessment Francesco Claros Start: 06-30-2019 Adult depression scr eening assessment Francesco Claros Start: 10-26-2008 Microscopic observat ion [Identifier] in Cervix by Cyto stain Francesco Claros Plan of Treatment Date Care Activity Detail Author Start: 07-13-2025 End: 07-13-2025 Patient encounter procedure 07/13/2025 1:00 PM EDT Office Visit Neurology [address] [place] [address] Balaji Beth, BOWLING OR SKATING FRONT DESK CLERK.AURICULOTHERAPIST [address] [address] [employer], LORENA on pap & Excessive daytime sleepiness Neurology Comment on above: Linked [employer], LORENA o n pap & Excessive daytime sleepiness Start: 12-16-2024 End: 12-16-2024 Patient encounter procedure 12/16/2024 2:00 PM EDT Office Visit Neurology [address] [place] [address] Balaji Beth, BOWLING OR SKATING FRONT DESK CLERK.AURICULOTHERAPIST [address] [place] [address] shaun 10/11/24 [facility], Lorena on pap & Excessive daytime sleepiness Neurology Comment on above: shaun 10/11/24 [facility], Lorena on pap & Excessive daytime sleepiness Start: 11-30-2024 End: 03-01-2025 TOXICOLOGY SCREEN, ROUTINE URINE TOXICOLOGY SCREEN, ROUTINE URINE Lab Routine Idiopathic hypersomnia Expected: 11/30/2024 (Approximate), Expires: 03/01/2025 [facility] Comment on above: Expected: 11/30/2024 (Approximate), Expires: 03/01/2025 Start: 10-11-2024 End: 01-10-2025 TOXICOLOGY SCREEN, ROUTINE URINE [facility] Comment on above: Expected: 10/11/2024 , Expires: 01/10/2025 Start: 10-11-2024 End: 10-11-2024 Patient encounter procedure Neurology Comment on above: Six month follow up LORENA (60 min per provider request) Start: 09-01-2024 End: 09-01-2025 ECG COMPLETE ECG COMPLETE ECG Routine Idiopathic hypersomnia Expected: 09/01/2024, Expires: 09/01/2025 [facility] Work Phone: Comment on above: Expected: 09/01/2024 , Expires: 09/01/2025 Start: 09-01-2024 End: 09-01-2024 Patient encounter procedure 09/01/2024 1:30 PM EST Office Visit Neurology [address] [place] [address] Balaji Beth, BOWLING OR SKATING FRONT DESK CLERK.AURICULOTHERAPIST [address] [place] [address] three month follow up LORENA Neurology Comment on above: three month follow u p LORENA Start: 07-23-2024 End: 07-23-2024 Patient encounter procedure 07/23/2024 2:00 PM EDT Office Visit Neurology [address] [place] [address] Balaji Beth, BOWLING OR SKATING FRONT DESK CLERK.AURICULOTHERAPIST [address] [place] [address] three month follow up LORENA Neurology Comment on above: three month follow u p LORENA Start: 05-30-2024 Covid-19 Vaccine ( season) Covid-19 Vaccine ( season) [facility] Start: 05-30-2024 Influenza vaccination C [facility] Start: 04-09-2024 End: 04-09-2024 Patient encounter procedure 04/09/2024 2:30 PM EDT Office Visit Neurology [address] [place] [address] Balaji Beth APRN.AURICULOTHERAPIST [address] [place] [address] 3 month follow up Neurology Comment on above: 3 month follow up Start: 2023 Screening for malign ant neoplasm of breast Mammogram Screening [facility] Start: 09-29-2023 Behavioral Health Screening Behavioral Health Screening [facility] Start: 05-30-2023 Covid-19 Vaccine () Covid-19 Vaccine () [facility] Start: 05-30-2023 Influenza vaccination C [facility] Start: 03-20-2023 Anesthesia vaginal procedure w/biopsy nos ANESTH VAGINAL PROCEDURES [facility] Start: 03-20-2023 Conization cervix w/ wo d&c rpr eltrd exc CONIZATION OF CERVIX [facility] Start: 03-20-2023 Ambulation without limitation [facility] Start: 03-20-2023 Medical regimen orde rs management [facility] Start: 03-20-2023 Medication education [facility] Start: 03-20-2023 Taking patient vital signs [facility] Start: 03-20-2023 Vital signs measurements [facility] Start: 03-20-2023 [facility] Start: 03-20-2023 Patient discharge [facility] Start: 10-25-2022 End: 12-25-2022 BLOOD TB SCREEN [facility] Work Phone: Comment on above: Expected: 10/25/2022 , Expires: 12/25/2022 Start: 09-29-2022 DEPRESSION ASSESSMENT DEPRESSION ASS ESSMENT [facility] Start: 05-30-2022 Influenza vaccination INFLUENZA (#1) [facility] Start: 08-04-2020 HPV TESTING HPV TESTING [facility] Start: 08-04-2020 PAP TESTING PAP TESTING [facility] Start: 08-04-2020 Screening for malign ant neoplasm of cervix [facility] Start: 06-30-2020 Adult depression screening assessment DEPRESSION SCREENING [facility] Start: 10-27-2019 End: 10-27-2019 Office Visit 10/27/2019 Office Visit Behavioral Health Francesco Claros PA [address] [place] [id number] [phone] [facility] Start: 05-30-2019 Influenza vaccinatio n given INFLUENZA VACCINE (#1) [facility] Start: 10-26-2011 Human papilloma viru s screening PAP SMEAR [facility] Start: 2004 Tetanus, diphtheria and acellular pertussis vaccination TDAP/TD ADULT [facility] Start: 2002 Hepatitis B Vaccine (1 of 3 - 19+ 3-dose series) Hepatitis B Vaccine (1 of 3 - 19+ 3-dose series) [facility] Start: 2002 Urine microalbumin profile [facility] Start: 2001 ANNUAL WELLNESS VISIT ANNUAL WELLNES S VISIT [facility] Start: 2001 Anxiety Screening Anxiety Screening [facility] Start: 2001 Depression Screening Depression Scre ening [facility] Start: 2001 HEPATITIS C SCREENING HEPATITIS C [facility] Start: 2001 Hepatitis C screening Hepatitis C [facility] Start: 2001 HIV SCREENING HIV SCREENING [facility] Start: 2001 HIV screening HIV Screening [facility] Start: 2001 WELLNESS ANNUAL VISIT WELLNESS ANNUA L VISIT [facility] Start: 05-16-1984 COVID-19 VACCINE (#1) COVID-19 VACCI NE (#1) [facility] Start: 1983 HEPATITIS B (1 of 3 - 3-dose series) HEPATITIS B (1 of 3 - 3-dose series) [facility] Start: 1983 Hepatitis B Vaccine (1 of 3 - 3-dose series) Hepatitis B Vaccine (1 of 3 - 3-dose series) [facility] ECG COMPLETE ECG COMPLETE ECG 10/11/2024 10:27 AM EST [facility] Ecg routine ecg w/le ast 12 lds i&r only ECG INTERPRETATION & REPORT ONLY Cardiology Routine On stimulant medication Ordered: 10/11/2024 [facility] Work Phone: Comment on above: Ordered: 10/11/2024 End: 12-10-2023 MAINTENANCE WAKEFULNESS TEST MAINTENANCE WAKEFULNESS TEST Procedures Routine LORENA on CPAP Hypersomnia On stimulant medication 1 Occurrences starting 12/10/2022 until 12/10/2023 [facility] Work Phone: Comment on above: 1 Occurrences starti ng 12/10/2022 until 12/10/2023 Path report.final Dx Spec [facility] Path report.final Dx Spec [facility] Patient referral [facility] Work Phone: TOX SCREEN ROUT UR TOX SCREEN RO UT UR Lab Routine Hypersomnia due to medical condition Ordered: 10/30/2022 [facility] Work Phone: Comment on above: Ordered: 10/30/2022 [facility] Immunizations Immunization Date Immunization Notes Care Provider Sushila hernández 08-28-2016 influenza virus vacc ine, unspecified formulation Tonia Worrell MD Work Phone: [facility] Payers Date Payer Category Payer Self-pay [id number] 2024 Unknown [id number] 2022 Private Health Insurance 2022 Unknown [id number] 2016 Unknown [id number] 2015 Unknown ZAHRA [id number] 2015 Unknown [id number] 2013 Unknown [id number] 1983 Unknown [id number] 2.16. [id number] 1983 Unknown [id number] 2.16. 840.1.026090.3.579.2.297 1983 Unknown [id number] 2.16. 840.1.876829.3.579.2.297 1983 Unknown [id number] 2.16. 840.1.168513.3.579.2.297 1983 Unknown [id number] 2.16. 840.1.221963.3.579.2.297 1983 Unknown [id number] 2.16. 840.1.707731.3.579.2.297 1983 Unknown [id number] 2.16. 840.1.966726.3.579.2.297 1983 Unknown [id number] 2.16. 840.1.116752.3.579.2.297 1983 Unknown [id number] 2.16. 840.1.820541.3.579.2.297 1983 Unknown [id number] 2.16. 840.1.585724.3.579.2.297 1983 Unknown [id number] 2.16.8 40.1.917243.3.579.2.651 1983 Unknown [id number] 2.16.8 40.1.347880.3.579.2.651 1983 Unknown [id number] 2.16.8 40.1.156039.3.579.2.651 1983 Unknown [id number] 2.16.8 40.1.814220.3.579.2.651 1983 Unknown [id number] 2.16.8 40.1.316802.3.579.2.651 1983 Unknown [id number] 2.16.8 40.1.109810.3.579.2.651 1983 Unknown [id number] 2.16.8 40.1.151859.3.579.2.651 Private Health Insurance [employer] [id number] Private Health Insurance [employer] [id number] Unknown [id number] 2.16.8 [id number] Unknown [id number] Social History Date Type Detail Facility Start: 08-04-2015 End: 06-30-2019 Tobacco smoking status NHIS Former smoker [facility] Start: 06-30-2019 End: 01-05-2025 Alcohol intake Current drinker of alcohol (finding) [facility] Start: 12-30-2018 Alcohol Comment socially [facility] Start: 1985 Sex Assigned At Not on file [facility] History of tobacco use Current smoker [facility] Start: 08-04-2015 Tobacco use and exposure Smokeless tobacco non-user [facility] Start: 08-04-2015 Alcohol Comment occ [facility] Start: 10-11-2022 End: 10-21-2022 Exposure to SARS-CoV-2 (event) Not sure [facility] Start: 1985 Sex Assigned At Female [facility] Start: 03-13-2023 End: 06-04-2023 Tobacco smoking status NHIS Unknown if ever smoked [facility] Start: 10-21-2022 End: 09-01-2024 History of Social function [facility] Start: 10-21-2022 End: 09-01-2024 Tobacco use panel [facility] Adult Depression Screening Assessment 6 [facility] NEGATED: Highlighted row [facility] Goals Date Patient Goal Desired Activity /State Mental Status Date Assessment Result Facility 03-20-2023 Cognitive function Level Of Consciousness Sedated [facility] Work Phone: 03-20-2023 Cognitive function Patient Orien tation Person;Place;Time [facility] Work Phone: Clinical Notes 10-21-2022 to 01-05-2025 Balaji Beth APRN.AURICULOTHERAPIST - 01/05/2025 1:30 PM EDTTelephone Encounter - Mary ChenEVIE - 10/13/2024 1:22 PM ESTTelephone Encounter - Mary Chen, EVIE - 10/13/2024 1:22 PM EST Note Date & Type Note Facility 01-05-2025 History of Present illness Narrative Images from the original note were not included. [facility] Follow up/ Established patient visit Date of last visit : 10/11/2024 The following Impression/Plan was copied and pasted from the patient's last [facility] visit on 10/11/24: ASSESSMENT/PLAN: 1. Idiopathic hypersomnia - ICD9: 780.54, ICD10: G47.11 (primary diagnosis) Patient not improving with combination of meds as above. Reviewed prior meds and pt did best when on Nuvigil 250mg QAM except for difficulties sleeping due to mind not shutting off on such dose. However, that was prior to being on many of those meds she now takes for mood. Thus, question if those racing thoughts would no longer be an issues. D/w pt and will try again on Nuvigil 250mg QAM. SE and ADRs d/w pt. Note will be stopping Sunosi. No tremors noted on exam, but appears certain meds such as Vyvanse cause tremors in pt the past and suspect based on history Sunosi is doing the same. Advised pt not to drive or operate heavy machinery if sleepy. 2. LORENA on CPAP - ICD9: 327.23, ICD10: G47.33 Overall, no complaints regarding PAP. She is aware of the need to and benefits of wearing PAP nightly. Again, only reason does not wear is if she was to fall asleep prior to getting into bed. Later, due to leak and patient complaining of some discomfort on the bridge of the nose, performed a mask fit, and provided pt with an Anabel FFM which she feels is more comfortable than her current mask. Reminded pt to clean and replace equipment regularly. Encouraged weight loss. 3. On stimulant medication - ICD9: V58.69, ICD10: Z79.899 - ECG INTERPRETATION & REPORT ONLY - TOXICOLOGY SCREEN, ROUTINE URINE Migel King MD Here for follow up for idiopathic hypersomnia, LORENA Off Sunosi due to tremor On armodafinil 250 mg daily now. Can fall asleep, doesn't cause insomnia. No tremor. She is satisfied with this treatment for now. Feels like it is a band-aid. But on an emotional roller coaster now with upcoming high school graduation for her daughter. Sometimes wakes up and is dreaming, takes a few seconds to realize that it isn't real Has sleep inertia, that's what bothers her the most Drinks a Celsius mid-morning, might have a second before noon Working 2 jobs, might add a 3rd to help a friend--Zofia in AM, kait in afternoon, maybe a friend's restaurant weekend nights SLEEP APNEA Sleep apnea type : LORENA, Most Recent Apnea-Hypopnea Index (AHI): ? Treatment : PAP therapy DME: Renae PAP History: Current PAP settin-15 cm H2O. HYPERSOMNIA : Idiopathic Hypersomnia PSG/MSLT performed several yrs ago at Dr Kaplan's sleep lab. PSG was performed on CPAP 8 cm, REM latency was observed at 98-minutes, MSLT showed a mean sleep latency 11 minutes, 0 SOREMs were noted. Medications included Abilify, Nuvigil, Prozac, Topamax Drowsy driving: gets sleepy, no accidents Current medications: Armodafinil 250 mg #[facility] All prescriptions have been APPROPRIATELY filled. No suspicious activity was identified. 01/05/2025 by Balaji Beth APRN.AURICULOTHERAPIST Treatment history: Sunosi -- tremors Modafinil -- not effective Adderall xr worsened mood Adderall was stopped due to weight loss Vyvanse tremor L hand was worse 10/11/24 ECG NORMAL SINUS RHYTHM NORMAL ECG Latest Reference Range & Units 10/11/24 10:42 Amphetamines Negative Negative Barbiturates Negative Negative Benzodiazepines Urine Negative Negative Cocaine Urine Negative Negative Cannabinoids, Urine Negative Negative Ethanol, Urine <11 mg/dL <11 Opiates Negative Negative Phencyclidine Negative Negative Oxycodone, Urine Negative Negative SLEEP HYGIENE QUESTIONS: Bedtime : 930 pm Wake up Time : 430 AM when gets up, might go back to sleep until 630 AM Time it takes to fall sleep : immediate Number of times patient wakes up per night : not usually Estimated total sleep time ( in a 24 hour period of time) : 7-8 (used to get 13 before getting the second job) Naps : if not working PATIENT-ENTERED QUESTIONNAIRE SLEEP SCORES 01/02/2025 Sleep Questions Reason for visit: Excessive daytime sleepiness Average hours of CPAP per night: 6 Percent of nights CPAP used at least 4 hours: 75 Accidents or near accidents due to drowsy drivin 08/29/2024 10/05/2024 01/02/2025 [place] Sleepiness Scale Score 20 (Excessive daytime sleepiness present) 22 (Excessive daytime sleepiness present) 21 (Excessive daytime sleepiness present) 08/29/2024 10/05/2024 01/02/2025 PROMIS CAT Sleep Disturbance PROMIS Sleep Disturbance T-Score 64 (moderate) 54 (within normal limits) 52 (within normal limits) PROMIS Sleep Disturbance Percentile 8 34 42 07/23/2023 04/04/2024 08/29/2024 Insomnia Severity Index Score 16 16 20 08/29/2024 10/05/2024 01/02/2025 PHQ-9 Score 24 22 23 04/04/2024 08/29/2024 01/02/2025 PROMIS Global Health - (T-Scores - the mean of general population = 50. Five points is a clinically meaningful difference.) Physical T-Score 37.4 37.4 37.4 Mental T-Score 28.4 28.4 33.8 SLEEP RELATED ROS Review of Systems Psychiatric: Positive for depressed mood (somewhat of a roller coaster--daughter will be graduating from , going to college in [place] at [employer], son is learning to drive). ALLERGIES No Known Allergies CURRENT MEDICATIONS: atorvastatin (LIPITOR) 20 mg tablet Take 20 mg by mouth once daily. lamoTRIgine (LAMICTAL) 25 mg tablet Take 25 mg by mouth once daily. ARIPiprazole (ABILIFY) 15 mg tablet Take 1 tablet by mouth once daily. CPAP/BIPAP/OTHER Type .CPAPSettings into a note to see current settings/supplies/DME information. armodafinil (NUVIGIL) 250 mg tab Take 1 tablet by mouth once daily for 180 days. FLUoxetine (PROZAC) 20 mg capsule Take 80 mg by mouth once daily. PHYSICAL EXAMINATION: Vital Signs: BP 102/69 Pulse 72 Resp 18 Wt 82.6 kg (182 lb) LMP 03/17/2024 (Exact Date) SpO2 98% BMI 30.29 kg/m PHYSICAL EXAM: General appearance: pleasant, NAD Mental status: alert and oriented, able to provide own history Constitutional: overweight Skin: No visible rashes on exposed skin Neuro: No focal deficits observed, no tremors Chest: Regular S1 and S2, Lungs clear to auscultation IMPRESSION/PLAN: Idiopathic hypersomnia (primary encounter diagnosis) Lorena on cpap Jammie Gonzalez is a 39 year old female with idiopathic hypersomnia, LORENA on CPAP She remains excessively sleepy but keeps herself busy with 2 jobs (and might add a 3rd PT job). She is satisfied with current treatment of armodafinil 250 mg QAM, no adverse effects. - Continue Auto CPAP - Remember to clean your mask and equipment regularly, as directed. - You should be eligible for new supplies approximately every 3-6 months, depending on your insurance coverage. Contact your Durable Medical Equipment (DME) company for new supplies as needed. - Continue taking armodafinil 250 mg QAM as directed. - Avoid driving when drowsy. Reviewed the importance of avoiding driving when too sleepy, that nothing will overcome the irrepressible need to sleep. - trolley car overhauler for short naps (20-30 minutes) and use of caffeine if needed to help stay awake when driving. - Try to get at least 7-9 hours of sleep in a 24 hour period. Healthy diet and exercise can also promote better sleep. - Follow up in 6 months but we can see her sooner if needed. She will continue to see psych provider regularly. She wants to get through her daughter's graduation and leaving for college in [place] at [employer] [place]. - she is up to date on ECG and UTOX Balaji Beth APRN.CNP documented in this encounter [facility] 01-05-2025 Note HNO ID: [id number] Author: BALAJI BETH APRN.CNP Service: ? Author Type: Nurse Practitioner Type: Progress Notes Filed: 01/05/2025 17:17 Note Text: [facility] Follow up/ Established patient visit Date of last visit : 10/11/2024 The following Impression/Plan was copied and pasted from the patient's last [facility] visit on 10/11/24: ASSESSMENT/PLAN: 1. Idiopathic hypersomnia - ICD9: 780.54, ICD10: G47.11 (primary diagnosis) Patient not improving with combination of meds as above. Reviewed prior meds and pt did best when on Nuvigil 250mg QAM except for difficulties sleeping due to mind not shutting off on such dose. However, that was prior to being on many of those meds she now takes for mood. Thus, question if those racing thoughts would no longer be an issues. D/w pt and will try again on Nuvigil 250mg QAM. SE and ADRs d/w pt. Note will be stopping Sunosi. No tremors noted on exam, but appears certain meds such as Vyvanse cause tremors in pt the past and suspect based on history Sunosi is doing the same. Advised pt not to drive or operate heavy machinery if sleepy. 2. LORENA on CPAP - ICD9: 327.23, ICD10: G47.33 Overall, no complaints regarding PAP. She is aware of the need to and benefits of wearing PAP nightly. Again, only reason does not wear is if she was to fall asleep prior to getting into bed. Later, due to leak and patient complaining of some discomfort on the bridge of the nose, performed a mask fit, and provided pt with an Anabel FFM which she feels is more comfortable than her current mask. Reminded pt to clean and replace equipment regularly. Encouraged weight loss. 3. On stimulant medication - ICD9: V58.69, ICD10: Z79.899 - ECG INTERPRETATION AND REPORT ONLY - TOXICOLOGY SCREEN, ROUTINE URINE Migel King MD Here for follow up for idiopathic hypersomnia, LORENA Off Sunosi due to tremor On armodafinil 250 mg daily now. Can fall asleep, doesn't cause insomnia. No tremor. She is satisfied with this treatment for now. Feels like it is a band-aid. But on an emotional roller coaster now with upcoming high school graduation for her daughter. Sometimes wakes up and is dreaming, takes a few seconds to realize that it isn't real Has sleep inertia, that's what bothers her the most Drinks a Celsius mid-morning, might have a second before noon Working 2 jobs, might add a 3rd to help a friend--Zofia in AM, kait in afternoon, maybe a friend's restaurant weekend nights SLEEP APNEA Sleep apnea type : LORENA, Most Recent Apnea-Hypopnea Index (AHI): ? Treatment : PAP therapy DME: [facility] PAP History: Current PAP settin-15 cm H2O. HYPERSOMNIA : Idiopathic Hypersomnia PSG/MSLT performed several yrs ago at Dr Kaplan's sleep lab. PSG was performed on CPAP 8 cm, REM latency was observed at 98-minutes, MSLT showed a mean sleep latency 11 minutes, 0 SOREMs were noted. Medications included Abilify, Nuvigil, Prozac, Topamax Drowsy driving: gets sleepy, no accidents Current medications: Armodafinil 250 mg #30 last filled 12/23/24 [facility] website checked and validated. All prescriptions have been APPROPRIATELY filled. No suspicious activity was identified. 01/05/2025 by Balaji eBth APRN.AURICULOTHERAPIST Treatment history: Sunosi -- tremors Modafinil -- not effective Adderall xr worsened mood Adderall was stopped due to weight loss Vyvanse tremor L hand was worse 10/11/24 ECG NORMAL SINUS RHYTHM NORMAL ECG Latest Reference Range AND Units 10/11/24 10:42 Amphetamines Negative Negative Barbiturates Negative Negative Benzodiazepines Urine Negative Negative Cocaine Urine Negative Negative Cannabinoids, Urine Negative Negative Ethanol, Urine <11 mg/dL <11 Opiates Negative Negative Phencyclidine Negative Negative Oxycodone, Urine Negative Negative SLEEP HYGIENE QUESTIONS: Bedtime : 930 pm Wake up Time : 430 AM when gets up, might go back to sleep until 630 AM Time it takes to fall sleep : immediate Number of times patient wakes up per night : not usually Estimated total sleep time ( in a 24 hour period of time) : 7-8 (used to get 13 before getting the second job) Naps : if not working PATIENT-ENTERED QUESTIONNAIRE SLEEP SCORES 01/02/2025 Sleep Questions Reason for visit: Excessive daytime sleepiness Average hours of CPAP per night: 6 Percent of nights CPAP used at least 4 hours: 75 Accidents or near accidents due to drowsy drivin 08/29/2024 10/05/2024 01/02/2025 [place] Sleepiness Scale Score 20 (Excessive daytime sleepiness present) 22 (Excessive daytime sleepiness present) 21 (Excessive daytime sleepiness present) 08/29/2024 10/05/2024 01/02/2025 PROMIS CAT Sleep Disturbance PROMIS Sleep Disturbance T-Score 64 (moderate) 54 (within normal limits) 52 (within normal limits) (more content not included)... [facility] 10-13-2024 Telephone encounter Note Order faxed to [email or web address]. Patient active [email or web address]. Patient notified via Lemon message. Mary Chen MA [facility] 10-13-2024 Miscellaneous Notes Order faxed to [facility]. Patient active MyChart. Patient notified via Lemon message. Mary Chen MA Order printed, please fax to [facility] and notify pt Balaji eBth APRN.AURICULOTHERAPIST Order printed for Anabel FFM for [employer] Balaji Beth APRN.AURICULOTHERAPIST documented in this encounter [facility] 10-13-2024 Telephone encounter Note Order printed, please fax to [facility] and notify pt Balaji Beth APRN.AURICULOTHERAPIST [facility] 10-13-2024 Telephone encounter Note Order printed for Anabel FFM for [employer] Balaji Beth APRN.AURICULOTHERAPIST [facility] 10-11-2024 Instructions Migel King Jr., MD - 10/11/2024 10:21 AM EST Your most recent body mass index (BMI) that we have on record is 30.35. Obstructive sleep apnea (LORENA) worsens with an increase in weight; reduction in weight may improve or resolve your LORENA. If you are not already seeking treatment, there are resources available at the [facility] such as a nutrition consultation or referral to weight management programs at our [facility]. Please let us know if we can assist with a referral. documented in this encounter [facility] 10-11-2024 Note HNO ID: [id number] Author: MIGEL KING JR, MD Service: ? Author Type: Physician Type: Progress Notes Filed: 10/11/2024 10:21 Note Text: ESTABLISHED PATIENT VISIT CHIEF COMPLAINT: Follow Up HISTORY OF PRESENT ILLNESS: Jammie Gonzalez is a 38 year old female, BMI 30.35 kg/m2 with a PMH significant for and per last office visit with Bebo Beth CP on 09/01/24: Idiopathic hypersomnia (primary encounter diagnosis) Lorena on cpap Jammie Gonzalez is a 38 year old female with PMH of idiopathic hypersomnia, LORENA on CPAP, depression (has psychiatrist and therapist), HLD. LORENA is controlled with PAP therapy, she reports subjective benefits. Hypersomnia is better managed with combination of Sunosi and armodafil but she still has significant sleepiness with ESS 20/24; especially sleepy in the afternoon and when driving home from work at 5-6 PM. PLAN: - Continue Auto CPAP at 8-15 cmH2O. Recommend using it all night every night. - Remember to clean your mask and equipment regularly, as directed. - You should be eligible for new supplies approximately every 3-6 months, depending on your insurance coverage. Contact your [employer] company for new supplies as needed. - Avoid driving when drowsy. - trolley car overhauler for short naps (20-30 minutes) and use of caffeine if needed to help stay awake when driving. - Try to get at least 7-9 hours of sleep in a 24 hour period. Healthy diet and exercise can also promote better sleep. - CBTH wasn't helpful - For sleep inertia can try taking morning meds earlier, when she gets up with her - Continue Sunosi 150 mg QAM - Increase armodafinil 100 mg from QAM to BID, will see if that helps with feeling better in the afternoon as well as driving home after work. Consider increasing armodafinil dose if needed. She had adverse effects from stimulants. - ECG today, NSR - UTOX at next appointment This is my first time seeing patient. Prior records from Sleep Med Dept reviewed. Prior meds: Provigil not effective Nuvigil 2 yrs efficacy waned, couldn't fall asleep at night Adderall xr worsened mood Adderall was stopped due to weight loss Vyvanse tremor L hand was worse PAP data download up to 10/07/24 showed 74/90 days sued for avg of 6 hours and 38 minutes. Set at 8-15 cmH2O. AHI is 0.7. 95% pressure is 9.5 cmH2O. 95% leak is 33.4 LPM. PHQ 9 Data More data exists 10/05/2024 08/29/2024 04/04/2024 PHQ-9 All Questions Little interest or pleasure in doing things: 3 3 3 Feeling down, depressed, or hopeless: 3 3 3 Trouble falling or staying asleep, or sleeping too much 3 3 3 Feeling tired or having little energy 3 3 3 Poor appetite or overeating 1 3 3 Feeling bad about yourself - or that you are a failure or have let yourself or your family down 3 3 3 Trouble concentrating on things, such as reading the newspaper or watching television 3 3 3 Moving or speaking so slowly that other people could have noticed. Or the opposite - being so fidgety or restless that you have been moving around a lot more than usual 3 3 2 Thoughts that you would be better off , or of hurting yourself in some way 0 0 0 PHQ-9 Score 22 24 23 Details DAMIAN 7 Data 07/23/2023 DAMIAN-7 All Questions Feeling nervous, anxious, or on edge Several days Not being able to stop or control worrying Several days Details PROMIS-10 More data exists PROMIS Global Health - (T-Scores - the mean of general population = 50. Five points is a clinically meaningful difference.) Physical T-Score Mental T-Score 08/29/2024 37.4 28.4 04/04/2024 37.4 28.4 01/04/2024 42.3 33.8 Details [place] Sleepiness Scale Scores More data exists 10/05/2024 08/29/2024 04/04/2024 [place] Sleepiness Scale Score 22 Abnormal 20 Abnormal 21 Abnormal Details Insomnia Severity Index Scores More data exists 08/29/2024 04/04/2024 07/23/2023 Insomnia Severity Index Score 20 16 16 Pt states if does not use PAP its due to dozing off on couch. Feels more refreshed even if using PAP therapy. Tired all the time. Exhausted. No time of day more awake than others. Going to bed about 9-10AM; no issues falling asleep, no RLS. Wakes about 430AM with and takes meds, and then stays in bed until about 630AM. Then goes to work from 7-11AM. Then from noon until 5PM works at a [employer] (just for purpose of staying awake). In the AM, has to eat while driving to stay awake with windows down. So long as moving she is good. As soon as sits down, wants to go to sleep. Never fell asleep driving. States Sunosi originally made feel better and then nothing. If combines Sunosi with Nuvigil, slight benefit in AM. On weekends sleeps from 10PM until 11AM. Still not more refreshed. Does notice tremors that she associated with taking Sunosi. States when was on Nuvigil 250mg daily -more awake but when tried to sleep at night could not shut off mind. Sleeps throughout the night - deep sleep. Snoring (more content not included)... [facility] 10-11-2024 History of Present illness Narrative Images from the original note were not included. ESTABLISHED PATIENT VISIT CHIEF COMPLAINT: Follow Up HISTORY OF PRESENT ILLNESS: Jammie Gonzalez is a 38 year old female, BMI 30.35 kg/m2 with a PMH significant for and per last office visit with Bebo Beth CP on 09/01/24: Idiopathic hypersomnia (primary encounter diagnosis) Lorena on cpap Jammie Gonzalez is a 38 year old female with PMH of idiopathic hypersomnia, LORENA on CPAP, depression (has psychiatrist and therapist), HLD. LORENA is controlled with PAP therapy, she reports subjective benefits. Hypersomnia is better managed with combination of Sunosi and armodafil but she still has significant sleepiness with ESS 20/24; especially sleepy in the afternoon and when driving home from work at 5-6 PM. PLAN: - Continue Auto CPAP at 8-15 cmH2O. Recommend using it all night every night. - Remember to clean your mask and equipment regularly, as directed. - You should be eligible for new supplies approximately every 3-6 months, depending on your insurance coverage. Contact your Durable Medical Equipment (DME) company for new supplies as needed. - Avoid driving when drowsy. - trolley car overhauler for short naps (20-30 minutes) and use of caffeine if needed to help stay awake when driving. - Try to get at least 7-9 hours of sleep in a 24 hour period. Healthy diet and exercise can also promote better sleep. - CBTH wasn't helpful - For sleep inertia can try taking morning meds earlier, when she gets up with her - Continue Sunosi 150 mg QAM - Increase armodafinil 100 mg from QAM to BID, will see if that helps with feeling better in the afternoon as well as driving home after work. Consider increasing armodafinil dose if needed. She had adverse effects from stimulants. - ECG today, NSR - UTOX at next appointment This is my first time seeing patient. Prior records from Sleep Med Dept reviewed. Prior meds: Provigil not effective Nuvigil 2 yrs efficacy waned, couldn't fall asleep at night Adderall xr worsened mood Adderall was stopped due to weight loss Vyvanse tremor L hand was worse PAP data download up to 10/07/24 showed 74/90 days sued for avg of 6 hours and 38 minutes. Set at 8-15 cmH2O. AHI is 0.7. 95% pressure is 9.5 cmH2O. 95% leak is 33.4 LPM. PHQ 9 Data More data exists 10/05/2024 08/29/2024 04/04/2024 PHQ-9 All Questions Little interest or pleasure in doing things: 3 3 3 Feeling down, depressed, or hopeless: 3 3 3 Trouble falling or staying asleep, or sleeping too much 3 3 3 Feeling tired or having little energy 3 3 3 Poor appetite or overeating 1 3 3 Feeling bad about yourself - or that you are a failure or have let yourself or your family down 3 3 3 Trouble concentrating on things, such as reading the newspaper or watching television 3 3 3 Moving or speaking so slowly that other people could have noticed. Or the opposite - being so fidgety or restless that you have been moving around a lot more than usual 3 3 2 Thoughts that you would be better off , or of hurting yourself in some way 0 0 0 PHQ-9 Score 22 24 23 Details DAMIAN 7 Data 07/23/2023 DAMIAN-7 All Questions Feeling nervous, anxious, or on edge Several days Not being able to stop or control worrying Several days Details PROMIS-10 More data exists PROMIS Global Health - (T-Scores - the mean of general population = 50. Five points is a clinically meaningful difference.) Physical T-Score Mental T-Score 08/29/2024 37.4 28.4 04/04/2024 37.4 28.4 01/04/2024 42.3 33.8 Details [place] Sleepiness Scale Scores More data exists 10/05/2024 08/29/2024 04/04/2024 [place] Sleepiness Scale Score 22 Abnormal 20 Abnormal 21 Abnormal Details Insomnia Severity Index Scores More data exists 08/29/2024 04/04/2024 07/23/2023 Insomnia Severity Index Score 20 16 16 Pt states if does not use PAP its due to dozing off on couch. Feels more refreshed even if using PAP therapy. Tired all the time. Exhausted. No time of day more awake than others. Going to bed about 9-10AM; no issues falling asleep, no RLS. Wakes about 430AM with and takes meds, and then stays in bed until about 630AM. Then goes to work from 7-11AM. Then from noon until 5PM works at a [employer] (just for purpose of staying awake). In the AM, has to eat while driving to stay awake with windows down. So long as moving she is good. As soon as sits down, wants to go to sleep. Never fell asleep driving. States Sunosi originally made feel better and then nothing. If combines Sunosi with Nuvigil, slight benefit in AM. On weekends sleeps from 10PM until 11AM. Still not more refreshed. Does notice tremors that she associated with taking Sunosi. States when was on Nuvigil 250mg daily -more awake but when tried to sleep at night could not shut off mind. Sleeps throughout the night - deep sleep. Snoring if not using PAP. REVIEW OF SYSTEMS GENERAL:No weight loss, malaise or fevers. HEENT:Negative for frequent or significant headaches, No changes in hearing or vision, no nose bleeds or other nasal problems NECK:Negative for lumps, goiter, pain and significant neck swelling RESPIRATORY: Negative for cough, wheezing or shortness of breath. CARDIOVASCULAR: Negative for chest pain, leg swelling or palpitations. GASTROINTESTINAL: Negative for abdominal discomfort, blood in stools or black stools or change in bowel habits GENITOURINARY: No history of dysuria, frequency or incontinence. Only wakes at night if dealing with renal stones. MUSCULOSKELETAL: Negative for joint pain or swelling, back pain or muscle pain. NEUROLOGIC:See HPI. LAB/IMAGING: Those performed since patient's last visit have been reviewed. No results found for: WBC, RBC, HB, HCT, MCV, MCH, MCHC, RDWCV, PLT, MPV, GLUC, BUN, CREAT, NA, K, CHLOR, CO2, TPROT, ALB, CA, ALKPHOS, TBILI, AST, ALT, ROBERTA, ESRMM, SSA, SSB, CRYO, CRYOQ, RF, AHBSQ, HEPCABEIA URINALYSIS No results found for: PH, SPGR, UGLUC, UBILI, UKET, UHB, UPROT, UROBIL, UWBC, SSA Requesting through PCP. MEDICATIONS: atorvastatin (LIPITOR) 20 mg tablet Take 20 mg by mouth once daily. armodafinil 200 mg tab Take 0.5 tablets by mouth two times a day for 90 days. solriamfetoL 150 mg tablet (SUNOSI) Take 1 tablet by mouth every morning for 180 days. lamoTRIgine (LAMICTAL) 25 mg tablet Take 25 mg by mouth once daily. ARIPiprazole (ABILIFY) 15 mg tablet Take 1 tablet by mouth once daily. CPAP/BIPAP/OTHER Type .CPAPSettings into a note to see current settings/supplies/DME information. FLUoxetine (PROZAC) 20 mg capsule Take 80 mg by mouth once daily. HISTORIES PAST MEDICAL HISTORY Diagnosis Date Acne Depression Narcolepsy Sleep apnea FAMILY HISTORY Problem Relation Age of Onset Breast Cancer Maternal Grandmother Breast Cancer Paternal Aunt Heart Paternal Grandmother Heart Paternal Grandfather SOCIAL HISTORY Social History Tobacco Use Smoking status: Former Smokeless tobacco: Never Substance Use Topics Alcohol use: Yes Comment: occ Drug use: No PHYSICAL EXAMINATION BP 109/74 (BP Site: Left Arm, BP Position: Sitting) Pulse 67 Wt 82.7 kg (182 lb 6.4 oz) LMP 03/17/2024 (Exact Date) SpO2 98% BMI 30.35 kg/m GENERAL EXAM: General appearance: NAD, pleasant. HEENT: NC/AT, nasal congestion absent, no oral lesions, membranes moist. NECK: ROM nml. Lungs: CTA bilaterally. CV: RRR nl S1, S2. Extr: No cyanosis, clubbing or edema. No evidence of fasciculations. Extremity pulses palpable and normal. Skin: Cool to touch. NEUROLOGICAL EXAM: General: Awake, alert, oriented x3 (person,place,time), fluent, no dysarthria; comprehension, naming, repetition intact. Short and termite helper memory intact. Fund of knowledge grossly normal by MOCA. CN: PERRL, EOMI and without nystagmus, VFF to confrontation, facial sensation and strength are normal and symmetric, hearing is intact to finger rub bilaterally, palate and tongue movements are intact and symmetric. SCM and trapezius strength normal. Motor: Normal tone, bulk and strength (5/5) bilaterally (throughout extremities x4). Coordination: FNF, SANAM, HTS intact. No tremors. Sensation: Light touch intact throughout. No evidence of neglect. Gait: Stable with normal stride and arm swing. Assessment and Plan: ASSESSMENT/PLAN: 1. Idiopathic hypersomnia - ICD9: 780.54, ICD10: G47.11 (primary diagnosis) Patient not improving with combination of meds as above. Reviewed prior meds and pt did best when on Nuvigil 250mg QAM except for difficulties sleeping due to mind not shutting off on such dose. However, that was prior to being on many of those meds she now takes for mood. Thus, question if those racing thoughts would no longer be an issues. D/w pt and will try again on Nuvigil 250mg QAM. SE and ADRs d/w pt. Note will be stopping Sunosi. No tremors noted on exam, but appears certain meds such as Vyvanse cause tremors in pt the past and suspect based on history Sunosi is doing the same. Advised pt not to drive or operate heavy machinery if sleepy. 2. LORENA on CPAP - ICD9: 327.23, ICD10: G47.33 Overall, no complaints regarding PAP. She is aware of the need to and benefits of wearing PAP nightly. Again, only reason does not wear is if she was to fall asleep prior to getting into bed. Later, due to leak and patient complaining of some discomfort on the bridge of the nose, performed a mask fit, and provided pt with an Anabel FFM which she feels is more comfortable than her current mask. Reminded pt to clean and replace equipment regularly. Encouraged weight loss. 3. On stimulant medication - ICD9: V58.69, ICD10: Z79.899 - ECG INTERPRETATION & REPORT ONLY - TOXICOLOGY SCREEN, ROUTINE URINE Migel King MD I spent a total of 42 minutes on the date of the service which included preparing to see the patient, [id number] patient care, completing clinical documentation, obtaining and/or reviewing separately obtained history, performing a medically appropriate examination, counseling and educating the patient/family/caregiver, ordering medications, tests, or procedures, independently interpreting results (not separately reported), and communicating results to the patient/family/caregiver (results include PAP data download). PDMP website checked and validated. All prescriptions have been APPROPRIATELY filled. No suspicious activity was identified. 10/11/2024 by Migel King MD documented in this encounter [facility] 10-11-2024 Note HNO ID: [id number] Author: FLOYD OAKES LPN Service: ? Author Type: LICENSED NURSE Type: Progress Notes Filed: 10/11/2024 10:21 Note Text: [facility] 09-01-2024 History of Present illness Narrative Images from the original note were not included. [facility] Follow up/ Established patient visit Date of last visit : 04/09/2024 The following Impression/Plan was copied and pasted from the patient's last [facility] visit on 04/09/24: IMPRESSION/PLAN: Idiopathic hypersomnia (primary encounter diagnosis) Lorena on cpap Jammie Gonzalez is a 38 year old female with idiopathic hypersomnia, LORENA on CPAP. PMH of depression--currently under good control. Continue Sunosi 150 mg QAM Add armodafanil 200 mg take 1/2 tab, may need to adjust time of day to get best coverage but no interference with sleep Follow up 3 mos with me, [address] King (60 min appointment) Consider redo MSLT to see if MSL <8 min, if so then can try sodium oxybate - Continue Auto CPAP - Avoid driving when drowsy. - trolley car overhauler for short naps (20-30 minutes) and use of caffeine if needed to help stay awake when driving. - Try to get at least 7-9 hours of sleep in a 24 hour period. Healthy diet and exercise can also promote better sleep. Balaji Beth APRN.AURICULOTHERAPIST Here for follow up for idiopathic hypersomnia, LORENA The combination of Sunosi 150 mg and armodafinil 100 mg is definitely helpful but if she sits down then she will fall asleep. She takes both meds at 630 AM. Feels like she needs more medication by 1 PM. Drinks Celcius at 1130 AM. No adverse med effects. Has significant sleep inertia. 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 But when she gets in her car she is very sleepy, takes 30 minutes or so to get home, not falling asleep at the wheel but it is a struggle. HYPERSOMNIA : Idiopathic Hypersomnia Cataplexy: No Hypnagogic hallucinations: No Dream enactment behaviors: No Sleep related injuries: No Wakes up screaming, doesn't know if dreaming, doesn't always remember this happening, occurs 1-2x per night No RLS Current medications: Armodafinil 200 mg #15 last filled 08/23/24 Sunosi 150 mg #30 last filled 08/22/24 PDMP website checked and validated. All prescriptions have been APPROPRIATELY filled. No suspicious activity was identified. 09/01/2024 by Balaji Beth APRN.AURICULOTHERAPIST Treatment history: Provigil not effective Nuvigil 2 yrs efficacy waned, couldn't fall asleep at night Adderall xr worsened mood Adderall was stopped due to weight loss Vyvanse tremor L hand was worse 06/04/23 ECG NSR at [place] Latest Reference Range & Units 11/04/22 16:20 Amphetamines Negative Preliminary positive ! Barbiturates Negative Negative Benzodiazepines Urine Negative Negative Cocaine Urine Negative Negative Cannabinoids, Urine Negative Negative Ethanol, Urine <11 mg/dL <11 Opiates Negative Negative Phencyclidine Negative Negative Oxycodone, Urine Negative Negative !: Data is abnormal SLEEP APNEA Sleep apnea type : LORENA, Most Recent Apnea-Hypopnea Index (AHI): ? Treatment : PAP therapy DME: [employer] PAP History: Sometimes falls asleep before putting PAP on Uses 6 hrs/night, 5 nights/week Current PAP settin-15 cm H2O. Difficulties with AutoPAP: None Reviewed objective PAP compliance data: AHI<1 Mask type: full face mask Mask issues: none There is a perceived benefit by the patient SLEEP HYGIENE QUESTIONS: Bedtime : 930 pm Wake up Time : 430 AM when gets up, tries to stay up but falls back asleep until about 630 AM Time it takes to fall sleep : immediate Number of times patient wakes up per night : not usually Estimated total sleep time ( in a 24 hour period of time) : 7-8 (used to get 13 before getting the second job) Naps : Sundays and if she can on Wednesdays (so days when she isn't working) -- for 3 hrs, not refreshing PATIENT-ENTERED QUESTIONNAIRE SLEEP SCORES 08/29/2024 Sleep Questions Reason for visit: Sleep apnea Difficulty falling or staying asleep or poor sleep quality Excessive daytime sleepiness Average hours of CPAP per night: 4 Percent of nights CPAP used at least 4 hours: 85 Accidents or near accidents due to drowsy drivin Multiple values from one day are sorted in reverse-chronological order 01/04/2024 04/04/2024 08/29/2024 [place] Sleepiness Scale Score 22 (Excessive daytime sleepiness present) 21 (Excessive daytime sleepiness present) 20 (Excessive daytime sleepiness present) 01/04/2024 04/04/2024 08/29/2024 PROMIS CAT Sleep Disturbance PROMIS Sleep Disturbance T-Score 54 (within normal limits) 64 (moderate) 64 (moderate) PROMIS Sleep Disturbance Percentile 34 8 8 07/23/2023 04/04/2024 08/29/2024 Insomnia Severity Index Score 16 16 20 01/04/2024 04/04/2024 08/29/2024 PHQ-9 Score 19 23 24 01/04/2024 04/04/2024 08/29/2024 PROMIS Global Health - (T-Scores - the mean of general population = 50. Five points is a clinically meaningful difference.) Physical T-Score 42.3 37.4 37.4 Mental T-Score 33.8 28.4 28.4 SLEEP RELATED ROS Review of Systems Constitutional: Positive for fatigue. Respiratory: Negative for difficulty breathing. Cardiovascular: Negative for palpitations. Neurological: Negative for headaches. Left thumb tremor Psychiatric: Positive for depressed mood (now on a mood stabilizer, says mood is her normal, no SI/HI). ALLERGIES No Known Allergies CURRENT MEDICATIONS: atorvastatin (LIPITOR) 20 mg tablet Take 20 mg by mouth once daily. solriamfetoL 150 mg tablet (SUNOSI) Take 1 tablet by mouth every morning for 180 days. lamoTRIgine (LAMICTAL) 25 mg tablet Take 25 mg by mouth once daily. ARIPiprazole (ABILIFY) 15 mg tablet Take 1 tablet by mouth once daily. CPAP/BIPAP/OTHER Type .CPAPSettings into a note to see current settings/supplies/DME information. FLUoxetine (PROZAC) 20 mg capsule Take 80 mg by mouth once daily. armodafinil 200 mg tab Take 0.5 tablets by mouth two times a day for 90 days. PHYSICAL EXAMINATION: Vital Signs: BP 103/70 (BP Site: Left Arm, BP Position: Sitting) Pulse 75 Wt 81.9 kg (180 lb 9.6 oz) LMP 03/17/2024 (Exact Date) SpO2 98% BMI 30.05 kg/m PHYSICAL EXAM: General appearance: pleasant, NAD Mental status: alert and oriented, able to provide own history Constitutional: WNL Skin: No visible rashes on exposed skin Neuro: left thumb tremor RRR S1S2 w/o murmur IMPRESSION: Idiopathic hypersomnia (primary encounter diagnosis) Lorena on cpap Jammie Gonzalez is a 38 year old female with PMH of idiopathic hypersomnia, LORENA on CPAP, depression (has psychiatrist and therapist), HLD. LORENA is controlled with PAP therapy, she reports subjective benefits. Hypersomnia is better managed with combination of Sunosi and armodafil but she still has significant sleepiness with ESS 20/24; especially sleepy in the afternoon and when driving home from work at 5-6 PM. PLAN: - Continue Auto CPAP at 8-15 cmH2O. Recommend using it all night every night. - Remember to clean your mask and equipment regularly, as directed. - You should be eligible for new supplies approximately every 3-6 months, depending on your insurance coverage. Contact your Durable Medical Equipment (DME) company for new supplies as needed. - Avoid driving when drowsy. - trolley car overhauler for short naps (20-30 minutes) and use of caffeine if needed to help stay awake when driving. - Try to get at least 7-9 hours of sleep in a 24 hour period. Healthy diet and exercise can also promote better sleep. - CBTH wasn't helpful - For sleep inertia can try taking morning meds earlier, when she gets up with her - Continue Sunosi 150 mg QAM - Increase armodafinil 100 mg from QAM to BID, will see if that helps with feeling better in the afternoon as well as driving home after work. Consider increasing armodafinil dose if needed. She had adverse effects from stimulants. - ECG today, NSR - UTOX at next appointment - She is scheduled for [address] King 10/11/24, can follow up with me after that Balaji Beth APRN.CNP I spent a total of 50 minutes on the date of the service which included preparing to see the patient, [id number] patient care, completing clinical documentation, performing a medically appropriate examination, counseling and educating the patient/family/caregiver, and ordering medications, tests, or procedures. documented in this encounter [facility] 09-01-2024 Note HNO ID: [id number] Author: BALAJI BETH APRN.CNP Service: ? Author Type: Nurse Practitioner Type: Progress Notes Filed: 09/01/2024 16:05 Note Text: [facility] Follow up/ Established patient visit Date of last visit : 04/09/2024 The following Impression/Plan was copied and pasted from the patient's last [facility] visit on 04/09/24: IMPRESSION/PLAN: Idiopathic hypersomnia (primary encounter diagnosis) Lorena on cpap Jammie Gonzalez is a 38 year old female with idiopathic hypersomnia, LORENA on CPAP. PMH of depression--currently under good control. Continue Sunosi 150 mg QAM Add armodafanil 200 mg take 1/2 tab, may need to adjust time of day to get best coverage but no interference with sleep Follow up 3 mos with me, [address] King (60 min appointment) Consider redo MSLT to see if MSL <8 min, if so then can try sodium oxybate - Continue Auto CPAP - Avoid driving when drowsy. - trolley car overhauler for short naps (20-30 minutes) and use of caffeine if needed to help stay awake when driving. - Try to get at least 7-9 hours of sleep in a 24 hour period. Healthy diet and exercise can also promote better sleep. Balaji Beth APRN.AURICULOTHERAPIST Here for follow up for idiopathic hypersomnia, LORENA The combination of Sunosi 150 mg and armodafinil 100 mg is definitely helpful but if she sits down then she will fall asleep. She takes both meds at 630 AM. Feels like she needs more medication by 1 PM. Drinks Celcius at 1130 AM. No adverse med effects. Has significant sleep inertia. 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 But when she gets in her car she is very sleepy, takes 30 minutes or so to get home, not falling asleep at the wheel but it is a struggle. HYPERSOMNIA : Idiopathic Hypersomnia Cataplexy: No Hypnagogic hallucinations: No Dream enactment behaviors: No Sleep related injuries: No Wakes up screaming, doesn't know if dreaming, doesn't always remember this happening, occurs 1-2x per night No RLS Current medications: Armodafinil 200 mg #15 last filled 08/23/24 Sunosi 150 mg #30 last filled 08/22/24 PDMP website checked and validated. All prescriptions have been APPROPRIATELY filled. No suspicious activity was identified. 09/01/2024 by Balaji Beth APRN.AURICULOTHERAPIST Treatment history: Provigil not effective Nuvigil 2 yrs efficacy waned, couldn't fall asleep at night Adderall xr worsened mood Adderall was stopped due to weight loss Vyvanse tremor L hand was worse 06/04/23 ECG NSR at [place] Latest Reference Range AND Units 11/04/22 16:20 Amphetamines Negative Preliminary positive ! Barbiturates Negative Negative Benzodiazepines Urine Negative Negative Cocaine Urine Negative Negative Cannabinoids, Urine Negative Negative Ethanol, Urine <11 mg/dL <11 Opiates Negative Negative Phencyclidine Negative Negative Oxycodone, Urine Negative Negative !: Data is abnormal SLEEP APNEA Sleep apnea type : LORENA, Most Recent Apnea-Hypopnea Index (AHI): ? Treatment : PAP therapy DME: [employer] PAP History: Sometimes falls asleep before putting PAP on Uses 6 hrs/night, 5 nights/week Current PAP settin-15 cm H2O. Difficulties with AutoPAP: None Reviewed objective PAP compliance data: AHI<1 Mask type: full face mask Mask issues: none There is a perceived benefit by the patient SLEEP HYGIENE QUESTIONS: Bedtime : 930 pm Wake up Time : 430 AM when gets up, tries to stay up but falls back asleep until about 630 AM Time it takes to fall sleep : immediate Number of times patient wakes up per night : not usually Estimated total sleep time ( in a 24 hour period of time) : 7-8 (used to get 13 before getting the second job) Naps : Sundays and if she can on Wednesdays (so days when she isn't working) -- for 3 hrs, not refreshing PATIENT-ENTERED QUESTIONNAIRE SLEEP SCORES 08/29/2024 Sleep Questions Reason for visit: Sleep apnea Difficulty falling or staying asleep or poor sleep quality Excessive daytime sleepiness Average hours of CPAP per night: 4 Percent of nights CPAP used at least 4 hours: 85 Accidents or near accidents due to drowsy drivin Multiple values from one day are sorted in reverse-chronological order 01/04/2024 04/04/2024 08/29/2024 [place] Sleepiness Scale Score 22 (Excessive daytime sleepiness present) 21 (Excessive daytime sleepiness present) 20 (Excessive daytime sleepiness present) 01/04/2024 04/04/2024 08/29/2024 PROMIS CAT Sleep Disturbance PROMIS Sleep Disturbance T-Score 54 (within normal limits) 64 (moderate) 64 (moderate) PROMIS Sleep Disturbance Percentile 34 8 8 07/23/2023 04/04/2024 08/29/2024 Insomnia Severity Index Score 16 16 20 01/04/2024 04/04/2024 08/29/2024 PHQ-9 (more content not included)... [facility]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 solriamfetol (Sunosi) and pitolisant (Wakix). Modafinil, armodafinil and solriamfetol are also approved for excessive sleepiness in people with obstructive sleep apnea on CPAP, and modafinil and armodafinil for excessive sleepiness in shift work sleep disorder. For more information about the newest treatments, see www.sunosi.com and www.wakix.com. Pitolisant requires a special prescription referral form sent by your sleep provider to a specialty pharmacy. While side effects may also occur with these agents, the risks are less than with stimulant medications. and follow-up with your sleep provider is required every 6 months including one in-person visit per year. This includes an annual visit with your sleep physician and a mid-year visit with a sleep advanced practice provider. Periodic urine and EKG monitoring may be recommended depended on the type of medication being prescribed. Trial with solriamfetol 37.5mg will be considered. Side effects include headache, dizziness, difficulty falling asleep or staying asleep, nausea, diarrhea, loss of appetite. Non-medication Treatments: Non-pharmalogical treatments should be combined with medications to improve daytime sleepiness in narcolepsy, idiopathic hypersomnia, and other forms of hypersomnia. These including daytime naps, consistent sleep schedules, strategic caffeine, good sleep hygiene, avoidance of alcohol, sedating medications, recreational drugs and sleep deprivation and treatment of co-existing sleep disorders. Social support is important in managing the psychological difficulties associated with hypersomnia disorders and some people require educational and/or work accommodations. Cognitive behavioral therapy (CBT) with an experienced psychologist is helpful in managing psychosocial challenges and maintaining good sleep habits. A blood pressure measurement is required at every follow-up visit. You may set up a compatible blood pressure monitoring device that allows you to submit your readings from home to your healthcare provider through My Chart. Ask your provider for more information. For refills: - If you are receiving a controlled substance, you will need to see a sleep physician at least once per year. - In MyChart ( Medications then Request Renewals ) - Call the office at [phone], option #5 for provider questions. documented in this encounter [facility] 08-05-2023 Miscellaneous Notes Faxed request for copy of ultrasound from [facility] [phone] with confirmation received. documented in this encounter [facility] 08-04-2023 History of Present illness Narrative Images from the original note were not included. [facility] Virtual Visit Follow up/ Established patient visit Date of last visit : 05/26/2023 I have communicated my name and active licensure. The patient's identity and physical location were verified at the time of this visit. Either the patient or their legal loan representative has been informed of the risks and benefits of -- and alternatives to -- treatment through a remote evaluation and consents to proceed with the evaluation remotely. Interval history : Here for follow up for sleep apnea and hypersomnia Is on abilify and prozac for depression- taken at bedtime. Had ECG, cardiology opinion at [facility], per patient ECG was normal Has been evaluated by [facility] - Dr Warren Is going to the gym after work at 11.30 am, work schedule is 7-11am Hypersomnia: Per review of notes, Name and dose: provigil which was not effective, Nuvigil for 2 years less efficacious and also effected her ability to fall asleep at night. Dextroamphetamine 15 mg, Adderall 15 mg was effective but stopped due to weight loss. Adderall XR was not effective and worsened her mood Time taken: nuvugil for 2 years Reason for stopping medication: Ineffective and Adverse effect: Jitteriness, weight loss She is no longer taking Vyvanse, secondary to tremor Last PAP download in chart 05/19- no reported difficulty tolerating, not using PAP during her naps, may have missed 8-10 days in the past month this is frequently on weekends when who works out of state is home. Has observed benefit on PAP on snoring and apneic pause but not on daytime sleepiness. SLEEP HYGIENE QUESTIONS: Bedtime : 8-10pm Wake up Time : 6.15am with alarm Time it takes to fall sleep : no sleep onset issues Average Estimated total sleep time ( in a 24 hour period of time) : > 16 hours Naps : is taking a nap after work daily 3 hours PATIENT-ENTERED QUESTIONNAIRE SLEEP SCORES Sleep Questions 07/23/2023 Reason for visit: Sleep apnea, Difficulty falling or staying asleep or poor sleep quality, Excessive daytime sleepiness Average hours slept in 24 hours: 15 Average hours of CPAP per night: 6.5 Percent of nights CPAP used at least 4 hours: 75 Accidents or near accidents due to drowsy drivin [place] Sleepiness Scale 10/25/2022 12/05/2022 07/23/2023 Score 20 (severe daytime sleepiness) 21 (severe daytime sleepiness) 21 (severe daytime sleepiness) PROMIS CAT Sleep Disturbance 10/14/2022 12/05/2022 07/23/2023 PROMIS Sleep Disturbance T-Score 61 (moderate) 61 (moderate) 57 (mild) PROMIS Sleep Disturbance Percentile 14 % 14 % 24 % Insomnia Severity Index 10/14/2022 12/05/2022 07/23/2023 Score 21 16 16 PHQ-9 10/14/2022 12/05/2022 07/23/2023 Score 19 20 20 PROMIS Global Health - (T-Scores - the mean of general population = 50. Five points is a clinically meaningful difference.) 10/14/2022 12/05/2022 07/23/2023 Physical T-Score 39.8 39.8 34.9 Mental T-Score 31.3 31.3 33.8 ALLERGIES No Known Allergies CURRENT MEDICATIONS: CPAP/BIPAP/OTHER Type .CPAPSettings into a note to see current settings/supplies/DME information. FLUoxetine (PROZAC) 20 mg capsule Take 40 mg by mouth. ARIPiprazole (ABILIFY) 5 mg tablet Take 1 tablet by mouth once daily. CPAP Prior Hypersomnia/Narcolepsy Medications (20 years) Some values may be hidden. Unless noted otherwise, only the newest values recorded on each date are displayed. Hypersomnia/Narcolepsy Medications armodafinil (NUVIGIL) 250 mg tab Dose: 125 mg NEEDED Starting date: Ending date: 10/21/2022 (Discontinued) Prior Insomnia Medications (last 20 years) Some values may be hidden. Unless noted otherwise, only the newest values recorded on each date are displayed. Insomnia Medications escitalopram oxalate (LEXAPRO) 10 mg tablet Dose: 10 mg DAILY Starting date: Ending date: 10/21/2022 (Discontinued) FLUoxetine (PROZAC) 20 mg capsule Dose: Take 40 mg by mouth. Starting date: 10/10/2021 (active) Medication marked as long-term Actigraphy Averaged sleep time of 8.95 hours per night. Estimated sleep efficiency was not reduced ( 94 %) Naps 11 Average Nap Duration 79 min Circadian Rhythm Appropriate with advanced tendencies IMPRESSION/PLAN: Lorena on cpap (primary encounter diagnosis) Excessive daytime sleepiness Severe major depression without psychotic features (hcc) -Untreated sleep apnea is associated with a variety of consequences, including, but not limited to hypertension, heart disease, stroke, obesity, and daytime sleepiness that can affect normal daytime functioning. Because of these consequences, treatment of sleep apnea is recommended. -Counseled in regards to CPAP therapy, need for continued and improved adherence. -Self reports avoiding using PAP on days her is home, download awaited Continue Current PAP settin-15 cm H2O. Encouraged PAP usage during naps as well. - Remember to clean your mask and equipment regularly, as directed. - You should be eligible for new supplies approximately every 3-6 months, depending on your insurance coverage. Contact your Durable Medical Equipment (DME) company for new supplies as needed. Has Recently recently been evaluated by Behavioral sleep medicine-Dr. Warren, advised CBT-H including behavioral strategies of following a regular daytime and nighttime schedule including structuring daytime behaviors (e.g., planned naps), managing depression and anxiety associated with hypersomnias. She is motivated to work with [facility]. --Requested her to share details of cardiology work up from outside facility. Shared information aboout wake promoting agents in [employer], will initiate trial once cardiology information reviewed. Trial with solriamfetol 37.5mg for initial 3 days to be increased to 75mg will be considered -details share in [employer]. Side effects include headache, dizziness, difficulty falling asleep or staying asleep, nausea, diarrhea, loss of appetite. - Avoid driving when drowsy. Recommend that if you are dozing off while driving, that you do not drive until your sleepiness is appropriately treated. F/U 2 months Tnoia Worrell MD I spent a total of 25 minutes on the date of the service which included preparing to see the patient, [id number] patient care, performing a medically appropriate examination, counseling and educating the patient/family/caregiver and ordering medications/devices documented in this encounter [facility] 06-16-2023 Note [facility] Pap Smear Specimen Adequacy June 16, 2023 11:18am Comment . Satisfactory for evaluation. Endocervical and/or squamous metaplasticcells (endocervical component) are present. Comment on above: Satisfactory for valentin luation. Endocervical and/or squamous metaplasticcells (endocervical component) are present. 05-27-2023 Miscellaneous Notes Formattin g of this note might be different from the original. Lemon message sent documented in this encounter [facility] 05-27-2023 Instructions Tonia Worrell MD - 05/27/2023 8:21 AM EDT Continue PAP Therapy - Continue Auto CPAP at 8-15 cmH2O. - Remember to clean your mask and equipment regularly, as directed. - You should be eligible for new supplies approximately every 3-6 months, depending on your insurance coverage. Contact your Durable Medical Equipment (DME) company for new supplies as needed. Following up for your Disorder: Symptoms of narcolepsy, idiopathic hypersomnia and other central nervous system (BRUSH WORKER) hypersomnia disorders can be effectively treated with several types of medications, many of which require frequent monitoring by a healthcare provider. At [facility], we want to ensure that your symptoms are well managed so that you can enjoy the best quality of life possible. Several medications are approved by the Food and Drug Administration (FDA) for the treatment of narcolepsy and one medication is approved for the treatment of idiopathic hypersomnia. Therefore, it is common practice to use some alerting medications off-label which means that insurance coverage is variable. Most are controlled substances, meaning that their use is monitored closely by pharmacies and governmental agencies. Some have interactions with other commonly used medications, including oral contraceptives and antidepressants. Regular follow-up with your sleep provider is required. If you are taking medications for hypersomnia, contact your sleep provider before starting other prescribed medications. Always keep your medication in a safe place, out of reach of children, teens and pets. A blood pressure measurement is required at every follow-up visit. You may set up a compatible blood pressure monitoring device that allows you to submit your readings from home to your healthcare provider through My Chart. Ask your provider for more information. Medications: There are three main classes of medication approved for the treatment of excessive sleepiness associated with narcolepsy: stimulant medications, non-stimulant wake-promoting medications and sodium/lower sodium oxybates. Sodium/lower sodium oxybates and pitolisant, a newer wake promoting agent, are also approved for cataplexy in people with narcolepsy. Stimulant Medications: Stimulants include methylphenidate (Ritalin, Concerta, Metadate, Daytrana, Quillivant, Quillichew), dexmethylphenidate (Focalin), and amphetamine derivatives (Adderall, Desoxyn, Methadine, Vyvanse, Zendeti). Due to side effects and the potential for dependence, follow-up with your sleep provider is required every 3 months including one in-person visit per year. This includes an annual visit with your sleep physician and quarterly visits with a sleep advanced practice provider as well as periodic urine and EKG monitoring. Non-stimulant Wake-promoting Medications: Non-stimulant wake-promoting medications include modafinil (Provigil) and armodafinil (Nuvigil) and two new agents FDA-approved in 2019, solriamfetol (Sunosi) and pitolisant (Wakix). Modafinil, armodafinil and solriamfetol are also approved for excessive sleepiness in people with obstructive sleep apnea on CPAP, and modafinil and armodafinil for excessive sleepiness in shift work sleep disorder. For more information about the newest treatments, see www.sunAddvocate.com and www.Huixiaoer.Vaximm. Pitolisant requires a special prescription referral form sent by your sleep provider to a specialty pharmacy. While side effects may also occur with these agents, the risks are less than with stimulant medications. and follow-up with your sleep provider is required every 6 months including one in-person visit per year. This includes an annual visit with your sleep physician and a mid-year visit with a sleep advanced practice provider. Periodic urine and EKG monitoring may be recommended depended on the type of medication being prescribed. Oxybate Salts: Sodium oxybate (Xyrem) and lower-sodium oxybate (Xywav) are FDA-approved medications for excessive sleepiness and cataplexy in narcolepsy. Xywav was FDA-approved in 2020 and contains over 90% less sodium than Xyrem with the same degree of effectiveness. Both Xyrem and Xywav are liquids taken at bedtime and again during the night. Xyrem/Xywav are salts of gamma hydroxybutyrate (GHB), an illegal drug with serious side effects. While Xyrem/Xywav are not GHB, they should not be taken with other BRUSH WORKER depressants including opioid analgesics, benzodiazepines, sedating antidepressants, antipsychotics, sedating anti-seizure medicines, general anesthetics, muscle relaxants, alcohol or street drugs due to the risk of serious medical problems. When taken as prescribed, oxybate salts have lower potential for physical or psychological dependence than stimulant medications. Prescriptions are filed by a specialty pharmacy through the Xyrem/Xywav REMS Program. For more information, see www.Visualnestrem.com or www.Visualnestwav.com, respectively. Follow-up with your sleep provider is required every 6 months including one in-person visit per year. This includes an annual visit with your sleep physician and a mid-year visit with a sleep advanced practice provider. Periodic urine and EKG monitoring may be recommended. If you reside outside the state of [place], please discuss follow-up visit and prescription recommendations with your sleep physician as controlled substance regulations vary by state. If you miss your regularly scheduled appointments, you will need to make an appointment with a sleep advanced practice provider before refills will be approved. Non-medication Treatments: Non-pharmalogical treatments should be combined with medications to improve daytime sleepiness in narcolepsy, idiopathic hypersomnia, and other forms of hypersomnia. These including daytime naps, consistent sleep schedules, strategic caffeine, good sleep hygiene, avoidance of alcohol, sedating medications, recreational drugs and sleep deprivation and treatment of co-existing sleep disorders. Social support is important in managing the psychological difficulties associated with hypersomnia disorders and some people require educational and/or work accommodations. Cognitive behavioral therapy (CBT) with an experienced psychologist is helpful in managing psychosocial challenges and maintaining good sleep habits. Scheduling Information: - Any appointments can be scheduled through the central scheduling system for the [facility] at [phone]. - [facility] offers direct scheduling for patients to schedule appointments. -Virtual visits are also available. If not covered by your insurance, there is a 35% discount. Please contact your insurance to determine coverage. For refills: - If you are receiving a controlled substance, you will need to see a sleep physician at least once per year. - In MyChart ( Medications then Request Renewals ) - Call the office at [phone], option #5 for provider questions. For any other questions: - Contact your visit provider via [facility] ( Inbox & Sent Messages then Send a message ) for the quickest response. - Call the office at [phone], option #5 for provider questions. [facility] website: [email or web address] documented in this encounter [facility] 05-26-[facility]23 History of Presen t illness Narrative Images from the original note were not included. [facility] Virtual Visit Follow up/ Established patient visit Date of last visit : 10/21/2022 I have communicated my name and active licensure. The patient's identity and physical location were verified at the time of this visit. Either the patient or their legal loan representative has been informed of the risks and benefits of -- and alternatives to -- treatment through a remote evaluation and consents to proceed with the evaluation remotely. 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 She noted that her mind is clearer off the medication. Underwent MWT on Vyvanse, mean sleep latency 10.5 min. Stopped taking topamax, now on abilify and prozac. ECG- outside facility, has upcoming appt with cardiology ECG 01/19 -Abnormal ECG sinus rhythm, left atrial enlargement, left posterior fascicular block, QT 408 msec Is scheduled to see Dr Warren on 07/30 SLEEP APNEA Sleep apnea type : LORENA, Most Recent Apnea-Hypopnea Index (AHI): 0.5 Treatment : PAP therapy DME: [employer] PAP History: Uses AutoPAP for 78% > 4 hours hours per night, 7hrs 4 min average Current PAP settin-15 cm H2O. Difficulties with CPAP: None Reviewed objective PAP compliance data: 03/20-05/18 Mask type: full face mask Mask issues: none Uses chin strap: none Uses ramp function: Yes Uses humidity: yes Max leak 18.2 There is little or no perceived benefit by the patient: yes Observers report abolition of snoring with AutoPAP use. Mean Wakefulness test- mean sleep latency 10.3 min ( on Vyvanse) Actigraphy - appropriate sleep time for the age 8.95 hours daily, increased wake after sleep onset , and frequent napping. - Hypersomnia: Name and dose: provigil which was not effective, Nuvigil for 2 years less efficacious and also effected her ability to fall asleep at night. Dextroamphetamine 15 mg, Adderall 15 mg was effective but stopped due to weight loss. Adderall XR was not effective and worsened her mood Time taken: nuvugil for 2 years Reason for stopping medication: Ineffective and Adverse effect: Jitteriness, weight loss SLEEP HYGIENE QUESTIONS: Bedtime : 8-10pm Wake up Time : 6.15am with alarm Time it takes to fall sleep : no sleep onset issues Average Estimated total sleep time ( in a 24 hour period of time) : 12 Naps : is trying to avoid. On weekends- can sleep through the day PATIENT-ENTERED QUESTIONNAIRE SLEEP SCORES Sleep Questions 12/05/2022 Reason for visit: Sleep apnea, Excessive daytime sleepiness Average hours slept in 24 hours: 12 Average hours of CPAP per night: 8.5 Percent of nights CPAP used at least 4 hours: 99 Accidents or near accidents due to drowsy drivin [place] Sleepiness Scale 10/14/2022 10/25/2022 12/05/2022 Score 20 (severe daytime sleepiness) 20 (severe daytime sleepiness) 21 (severe daytime sleepiness) PROMIS CAT Sleep Disturbance 10/14/2022 12/05/2022 PROMIS Sleep Disturbance T-Score 61 (moderate) 61 (moderate) PROMIS Sleep Disturbance Percentile 14 % 14 % Insomnia Severity Index 10/14/2022 12/05/2022 Score 21 16 PHQ-9 10/14/2022 12/05/2022 Score 19 20 PROMIS Global Health - (T-Scores - the mean of general population = 50. Five points is a clinically meaningful difference.) 10/14/2022 12/05/2022 Physical T-Score 39.8 39.8 Mental T-Score 31.3 31.3 ALLERGIES No Known Allergies CURRENT MEDICATIONS: CPAP/BIPAP/OTHER Type .CPAPSettings into a note to see current settings/supplies/DME information. FLUoxetine (PROZAC) 20 mg capsule Take 40 mg by mouth. ARIPiprazole (ABILIFY) 5 mg tablet Take 1 tablet by mouth once daily. CPAP Prior Hypersomnia/Narcolepsy Medications (20 years) Some values may be hidden. Unless noted otherwise, only the newest values recorded on each date are displayed. Hypersomnia/Narcolepsy Medications armodafinil (NUVIGIL) 250 mg tab Dose: 125 mg NEEDED Starting date: Ending date: 10/21/2022 (Discontinued) Prior Insomnia Medications (last 20 years) Some values may be hidden. Unless noted otherwise, only the newest values recorded on each date are displayed. Insomnia Medications escitalopram oxalate (LEXAPRO) 10 mg tablet Dose: 10 mg DAILY Starting date: Ending date: 10/21/2022 (Discontinued) FLUoxetine (PROZAC) 20 mg capsule Dose: Take 40 mg by mouth. Starting date: 10/10/2021 (active) Medication marked as long-term IMPRESSION/PLAN: Lorena on cpap (primary encounter diagnosis) Hypersomnia Severe major depression without psychotic features (formerly [facility]) Ms. Gonzalez, with known history of LORENA is on CPAP with hypersomnia, PAP compliance data reviewed, good efficacy and adherence observed. Has comorbid mood disorders-anxiety and depression I do suspect contributing to her current sleep complaints. She is established with behavioral health ([facility]) for severe recurrent major depression. In regards to hypersomnia, Have also counseled in regards to the role of cognitive behavioral therapy referral for individual session for evaluation/counseling requested, has upcoming appointment. Nonmedication treatments including scheduled daytime naps, consistent sleep schedules, strategic caffeine, good sleep hygiene, avoidance of alcohol, sedating medications were discussed. She is no longer taking Vyvanse, secondary to tremor, has upcoming cardiology appointment in view of ECG changes. Would like to obtain cardiology opinion before proceeding with further trial with wake promoting agents. Information in regards to Wakix shared in My Chart. - Avoid driving when drowsy. Recommend that if you are dozing off while driving, that you do not drive until your sleepiness is appropriately treated. Tonia Worrell MD I spent a total of 25 minutes on the date of the service which included preparing to see the patient, [id number] patient care, performing a medically appropriate examination, counseling and educating the patient/family/caregiver and ordering medications/devices documented in this encounter [facility] 05-19-2023 Miscellaneous Notes Formattin g of this note might be different from the original. Images from the original note were not included. documented in this encounter [facility] 03-20-2023 History and physi sarah note Note Date/Time March 20, 2023 10:05am [facility] Medical Records Department [address] [place] [address] [place] [address] H&P Exam - [employer] 03/20/23 1004 MR#: [id number] Acct: [id number] Name: JAMMIE GONZALEZ Rep #:[id number] : 1985 37 From: Glenna bond DO PCP: Dr. Kimberlee Chavez MD Status:[facility] Location: [place] [address] History and Physical Date of Admission: 03/20/23 HPI: 37-year-old female with moderate cervical dysplasia plan for loop electrical excisional procedure. Denies headache or vision changes, chest pain or shortness of breath, nausea or vomiting, diarrhea constipation, fevers or chills. [employer]KEEP[employer] history: G3, P2 spontaneous vaginal deliveries Medical history: 1.? Obstructive sleep apnea 2. Anxiety, depression Medications: 1.? Aripiprazole 2. Multivitamin 3. Prozac 4. Vyvanse Surgical history: 1.? Hysteroscopy, dilation and curettage 2. Cholecystectomy 3. Carpal tunnel release on the right 4. Tonsillectomy Family history: No history of blood clots or bleeding disorders, noncontributory Social history: Denies tobacco, alcohol, drug use. Reports former tobacco use. Allergies: NKDA Review of system: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 daytime of sleepiness, medication don't quite work Reason Onset Date Comments Refill Request 01/25/2025 Source Comments (unrecognize d section and content) In the event this informatio n is protected by the Federal Confidentiality of Alcohol and Drug Abuse Patient Records regulations: The Federal rules restrict any use of the information to criminally investigate or prosecute any alcohol or drug abuse patient.[facility] the event this information is protected by the Federal Confidentiality of Alcohol and Drug Abuse Patient Records regulations: The Federal rules restrict any use of the information to criminally investigate or prosecute any alcohol or drug abuse patient.[facility] the event this information is protected by the Federal Confidentiality of Alcohol and Drug Abuse Patient Records regulations: The Federal rules restrict any use of the information to criminally investigate or prosecute any alcohol or drug abuse patient.[facility] Hospital[facility] the event this information is protected by the Federal Confidentiality of Alcohol and Drug Abuse Patient Records regulations: The Federal rules restrict any use of the information to criminally investigate or prosecute any alcohol or drug abuse patient.[facility] HospitalIn the event this information is protected by the Federal Confidentiality of Alcohol and Drug Abuse Patient Records regulations: The Federal rules restrict any use of the information to criminally investigate or prosecute any alcohol or drug abuse patient.[facility] HospitalIn the event this information is protected by the Federal Confidentiality of Alcohol and Drug Abuse Patient Records regulations: The Federal rules restrict any use of the information to criminally investigate or prosecute any alcohol or drug abuse patient.[facility] HospitalIn the event this information is protected by the Federal Confidentiality of Alcohol and Drug Abuse Patient Records regulations: The Federal rules restrict any use of the information to criminally investigate or prosecute any alcohol or drug abuse patient.[facility] HospitalIn the event this information is protected by the Federal Confidentiality of Alcohol and Drug Abuse Patient Records regulations: The Federal rules restrict any use of the information to criminally investigate or prosecute any alcohol or drug abuse patient.[facility] HospitalIn the event this information is protected by the Federal Confidentiality of Alcohol and Drug Abuse Patient Records regulations: The Federal rules restrict any use of the information to criminally investigate or prosecute any alcohol or drug abuse patient.[facility] HospitalIn the event this information is protected by the Federal Confidentiality of Alcohol and Drug Abuse Patient Records regulations: The Federal rules restrict any use of the information to criminally investigate or prosecute any alcohol or drug abuse patient.[facility] HospitalIn the event this information is protected by the Federal Confidentiality of Alcohol and Drug Abuse Patient Records regulations: The Federal rules restrict any use of the information to criminally investigate or prosecute any alcohol or drug abuse patient.[facility] HospitalIn the event this information is protected by the Federal Confidentiality of Alcohol and Drug Abuse Patient Records regulations: The Federal rules restrict any use of the information to criminally investigate or prosecute any alcohol or drug abuse patient.[facility] HospitalIn the event this information is protected by the Federal Confidentiality of Alcohol and Drug Abuse Patient Records regulations: The Federal rules restrict any use of the information to criminally investigate or prosecute any alcohol or drug abuse patient.[facility] HospitalIn the event this information is protected by the Federal Confidentiality of Alcohol and Drug Abuse Patient Records regulations: The Federal rules restrict any use of the information to criminally investigate or prosecute any alcohol or drug abuse patient.[facility] HospitalIn the event this information is protected by the Federal Confidentiality of Alcohol and Drug Abuse Patient Records regulations: The Federal rules restrict any use of the information to criminally investigate or prosecute any alcohol or drug abuse patient.[facility] HospitalIn the event this information is protected by the Federal Confidentiality of Alcohol and Drug Abuse Patient Records regulations: The Federal rules restrict any use of the information to criminally investigate or prosecute any alcohol or drug abuse patient.[facility] HospitalIn the event this information is protected by the Federal Confidentiality of Alcohol and Drug Abuse Patient Records regulations: The Federal rules restrict any use of the information to criminally investigate or prosecute any alcohol or drug abuse patient.[facility] HospitalIn the event this information is protected by the Federal Confidentiality of Alcohol and Drug Abuse Patient Records regulations: The Federal rules restrict any use of the information to criminally investigate or prosecute any alcohol or drug abuse patient.[facility] HospitalIn the event this information is protected by the Federal Confidentiality of Alcohol and Drug Abuse Patient Records regulations: The Federal rules restrict any use of the information to criminally investigate or prosecute any alcohol or drug abuse patient.[facility] HospitalIn the event this information is protected by the Federal Confidentiality of Alcohol and Drug Abuse Patient Records regulations: The Federal rules restrict any use of the information to criminally investigate or prosecute any alcohol or drug abuse patient.[facility] HospitalIn the event this information is protected by the Federal Confidentiality of Alcohol and Drug Abuse Patient Records regulations: The Federal rules restrict any use of the information to criminally investigate or prosecute any alcohol or drug abuse patient.[facility] HospitalIn the event this information is protected by the Federal Confidentiality of Alcohol and Drug Abuse Patient Records regulations: The Federal rules restrict any use of the information to criminally investigate or prosecute any alcohol or drug abuse patient.[facility] HospitalIn the event this information is protected by the Federal Confidentiality of Alcohol and Drug Abuse Patient Records regulations: The Federal rules restrict any use of the information to criminally investigate or prosecute any alcohol or drug abuse patient.[facility] HospitalIn the event this information is protected by the Federal Confidentiality of Alcohol and Drug Abuse Patient Records regulations: The Federal rules restrict any use of the information to criminally investigate or prosecute any alcohol or drug abuse patient.[facility] HospitalIn the event this information is protected by the Federal Confidentiality of Alcohol and Drug Abuse Patient Records regulations: The Federal rules restrict any use of the information to criminally investigate or prosecute any alcohol or drug abuse patient.[facility] HospitalIn the event this information is protected by the Federal Confidentiality of Alcohol and Drug Abuse Patient Records regulations: The Federal rules restrict any use of the information to criminally investigate or prosecute any alcohol or drug abuse patient.[facility] HospitalIn the event this information is protected by the Federal Confidentiality of Alcohol and Drug Abuse Patient Records regulations: The Federal rules restrict any use of the information to criminally investigate or prosecute any alcohol or drug abuse patient.[facility] HospitalIn the event this information is protected by the Federal Confidentiality of Alcohol and Drug Abuse Patient Records regulations: The Federal rules restrict any use of the information to criminally investigate or prosecute any alcohol or drug abuse patient.[facility] HospitalIn the event this information is protected by the Federal Confidentiality of Alcohol and Drug Abuse Patient Records regulations: The Federal rules restrict any use of the information to criminally investigate or prosecute any alcohol or drug abuse patient.[facility] HospitalIn the event this information is protected by the Federal Confidentiality of Alcohol and Drug Abuse Patient Records regulations: The Federal rules restrict any use of the information to criminally investigate or prosecute any alcohol or drug abuse patient.[facility] HospitalIn the event this information is protected by the Federal Confidentiality of Alcohol and Drug Abuse Patient Records regulations: The Federal rules restrict any use of the information to criminally investigate or prosecute any alcohol or drug abuse patient.[facility] HospitalIn the event this information is protected by the Federal Confidentiality of Alcohol and Drug Abuse Patient Records regulations: The Federal rules restrict any use of the information to criminally investigate or prosecute any alcohol or drug abuse patient.[facility] HospitalIn the event this information is protected by the Federal Confidentiality of Alcohol and Drug Abuse Patient Records regulations: The Federal rules restrict any use of the information to criminally investigate or prosecute any alcohol or drug abuse patient.[facility] HospitalIn the event this information is protected by the Federal Confidentiality of Alcohol and Drug Abuse Patient Records regulations: The Federal rules restrict any use of the information to criminally investigate or prosecute any alcohol or drug abuse patient.[facility] HospitalIn the event this information is protected by the Federal Confidentiality of Alcohol and Drug Abuse Patient Records regulations: The Federal rules restrict any use of the information to criminally investigate or prosecute any alcohol or drug abuse patient.[facility] HospitalIn the event this information is protected by the Federal Confidentiality of Alcohol and Drug Abuse Patient Records regulations: The Federal rules restrict any use of the information to criminally investigate or prosecute any alcohol or drug abuse patient.[facility] Care Teams (unrecognized sec tion and content) Team Status: Active Member Role Status Dates Dr. Rhett Carreno MD Family Provider Active Dr. Luisa Spangler MD Primary Care Provider Active Team Status: Inactive Member Role Status Dates Dr. Luisa Spangler MD Primary Care Provider Active Dr. Glenna Mauro DO Attending Provider Active Team Status: Active Member Role Status Dates Dr. Rhett Carreno MD Family Provider Active Dr. Kimberlee Chavez MD Primary Care Provider Active Team Status: Inactive Member Role Status Dates Dr. Glenna Mauro DO [facility]ending Provider, [facility] Kimberlee Chavez MD Primary Care Provider Active Team Status: Inactive Member Role Status Dates [employer] [place] Attending Provider Active Dr. Kimberlee Chavez MD Primary Care Provider Active Team Status: Inactive Member Role Status Dates Dr. Kimberlee Chavez MD Primary Care Provider, Referrin g Provider Active Dr. Migel Hebert MD Attending Provider Active Team Status: Inactive Member Role Status Dates Dr. Kimberlee Chavez MD Primary Care Provider Active Dr. Glenna Mauro DO Attending Provider, Referrin g Provider Active Team Status: Active Member Role Status Dates Dr. Kimberlee Chavez MD Primary Care Provider Active Dr. Migel Hebert MD Attending Provider Active Team Status: Active Member Role Status Dates Dr. Kimberlee Chavez MD Primary Care Provider Active Tatiana Monterroso GLEASON GEAR GENERATOR, GLEASON GEAR GENERATOR-C Attending Provider Active Team Status: Inactive Member Role Status Dates Dr. Kimberlee Chavez MD Primary Care Provider Active Dr. Migel Hebert MD Attending Provider, Referring Pro vider Active Goals (unrecognized section and content) Goals may be documented in a n alternate sectionGoals may be documented in an alternate section FOR RECORDS PERTAINING TO PATIENTS WHO ARE OR HAVE BEEN ENROLLED IN A CHEMICAL DEPENDENCY/SUBSTANCEABUSE PROGRAM, SOME INFORMATION MAY BE OMITTED. This clinical summary was aggregated from multiple sources. Caution should be exercised in using it in the provision of clinical care. This summary normalizes information from multiple sources, and as a consequence, information in this document may materially change the coding, format and clinical context of patient data. In addition, data may be omitted in some cases. CLINICAL DECISIONS SHOULD BE BASED ON THE PRIMARY CLINICAL RECORDS. [facility]. provides no warranty or guarantee of the accuracy or completeness of information in this document.
--- OUTSIDE RECORDS SUMMARY | 2025-07-19 16:07 | XMS RPT_ITS | CCD ---
Author Organization [facility] Care Team Providers Care Mash Grinder Name Role Phone Rancho Vasquez Unavailable Unavailable PROVIDER, UNKNOWN Unavailable Unavailable Rhett Carreno Unavailable Unavailable Pedro, Jammie Primary Care Provider Unavailable Primary Care Provider UnavailDr. Kimberlee Acevedo Primary Care Provider Dr. Kimberlee Chavez Referring Provider [phone] Dr. Migel Hebert Attending Provider [phone] Loc DRIVER, PABLO Simpson Attending Provider Unavailable Primary Care [...] once daily. 10/10/2021 Active Start: 10-10-2021 FLUoxetine (GA OZAC) 20 mg capsule Take 40 mg by mouth. 0 10/10/2021 Active Comment on above: Take 40 mg by mouth. lactobacillus acidophilus [id number] unt oral capsule (6 sources) Start: take 10 capsules by mouth once daily Lactobacillus Acidophilus (Probiotic) 10 billion cell Capsule Active 38601 MMU CELLS PO DAILY March 13, 2023 [...] & D3/WALLACE HIPS PO) (2 sources) Vit K-Tbduvqdwuzktjxt-U ose Hip (VITAMIN C & D3/WALLACE HIPS [...] (2 sources) Drug therapy finding; Translations: [Other assisted (current) drug therapy] Episodic Other lower respiratory [...] 07-24-2024 Episodic Other aftercare (1 source) Other assisted (current) drug therapy; Translations: [On stimulant medication] Onset: 10-11-2024 Episodic Results Test Name Value Interpretation Reference Range Facility URINE CULTURE [CCL]on 2024 Bacteria identified Cx Nom (U) URCUL See Results Below See Below CULTURE, URINE NORMAL UROGENITAL STEFANI 50,000-<100,000 CFU/ml Normal urogenital stefani SOURCE: Urine (Nonspecific) [facility] [address] [place] [address] Jose De Dios III, M.D. [id number] SEND TO IC NO Normal [facility] Comment on above: Performed By: #### 2 67922 #### [facility],[address] [place] [address] 28665 Bacteria Ur Culton Bacteria identified Cx Nom (U) ORGANISM ID: 1 50,000-<100,000 CFU/ml Normal urogenital stefani Normal [facility] Comment on above: Performed By: #### 6 30-4 #### [facility] CLIA [id number] [address] [place] [address] [place] ED MED ADMINISTRATION DETAIL on 04-09-2025 ED MED ADMINISTRATION DETAIL Communications Billing Analyst Medication Administration Record [address] [address] [id number] 04/04/2025 Patient: JAMMIE GONZALEZ Sex: Female : [...] Marii Valladares R.N. Scanned 1 of 2 Communications Billing Analyst Medication Ordered Medication Administration Date/Time IV NS [...] Marii Valladares R.N. 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 HEENT: Mucous membranes are pink. RESPIRATORY: Respirations [...] chest x-ray completed. -- 09:41 04/04/25 EDT Marii Valladares R.N. 09:10 04/04/25. IV NS 0.9 [...] -- 09:30 (more content not included)... Normal [facility] ED ORDER SHEET (CPOE ONLY)on 04-09-2025 ED ORDER SHEET (CPOE ONLY) Order Sheet Order Sheet [address] [place] [address] [id number] 04/04/2025 Patient: JAMMIE GONZALEZ Sex: Female : [...] Marii Schroeder Shauna Ewing, D.O. R.NAnabelle R.NAnabelle Utility Tech 08:52 04/04/2025 09:30 04/04/2025 09:30 04/04/2025 Marii Schroeder Shauna Ewing, D.O. R.N. R.NAnabelle Pulse Oximeter 08:52 04/04/2025 09:30 04/04/2025 09:30 04/04/2025 Marii Schroeder Shauna Ewing, D.O. R.NAnabelle R.NAnabelle Oxygen titrate to 92% 08:52 04/04/2025 09:30 04/04/2025 09:30 04/04/2025 Marii Schroeder Shauna Ewing, D.O. R.NAnabelle RAnabelleNAnabelle [Electronically signed by Migel Jameson D.O. (04/09/2025 02:53 EDT)] 3 of 3 Normal [facility] ED PHYSICIAN CLINICAL REPORT on 04-09-2025 ED PHYSICIAN CLINICAL REPORT Narrative Physician Clinical Narrative [address] [place] [address] [id number] 04/04/2025 08:26:00 Patient: JAMMIE GONZALEZ [facility]#: [id number] Sex: Female : 1985 Age: 39y Disposition: [...] Final Above high normal EDT 04/04/2025 09:01 [place] # 0.61 x10/UL 0.20 - 1.00 Final [...] Final 09 (more content not included)... Normal [facility] ED SUPER BILLon 04-09-2025 ED SUPER BILL [facility] [address] [place] [address] [id number] 04/04/2025 Patient: JAMMIE GONZALEZ Sex: Female : 1985 Age: 39y Facility Professional Category Item Description Code Code Quantity Fee Total Drugs Normal Saline 283260 2 $0.00 $0.00 1000cc (372431) Nurse/E/M EMERGENCY 365305 1 $0.00 $0.00 DEPT VISIT HIGH SEVERITYFUNCJ (28783-79) Nurse/IV/IM/Infusions Hydration 437886 2 $0.00 $0.00 additional hour (41745) Nurse/IV/IM/Infusions IVP initial (84590) 247978 1 $0.00 $0.00 Grand $0.00 Total Providers Migel Jameson D.O. Chief Complaint PALPITATIONS. 1 of 2 Superbill Principal Diagnosis Vomiting with nausea and dehydration. Palpitations. 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 HEENT: Mucous membranes are pink. RESPIRATORY: Respirations [...] NAUSEA AND DEHYDRATION 4 of 4 Normal [facility] ED VITALS FLOW SHEETon 04-09 ED VITALS FLOW SHEET Vitals Vital Sign Flow Sheet [address] [place] [address] [id number] 04/04/2025 Patient: JAMMIE GONZALEZ Sex: Female : [...] 109/71 76 79 3 of 3 Normal [facility] CBC + DIFFon 04-04-2025 Baso # 0.03 x10EE3/UL Normal 0.00 - 0.10 [facility] Comment on above: Performed By: #### 2 14139 #### [facility],[address] [place] [address] Basophils/100 WBC (Bld) 0.3 % Normal 0.0 - 2.0 [facility] Comment on above: Performed By: #### 2 51821 #### [facility],[address] [place] [address] 27200 CBC + DIFF Normal [facility] Comment on above: Result Comment: CBC- COMPLETE BLOOD COUNT Performed By: #### 2 46476 #### [facility],[address] [place] [address]479 EO # 0.08 x10EE3/UL Normal 0.00 - 0.50 [facility] Comment on above: Performed By: #### 2 81617 #### [place] [address] Eosinophils/100 WBC (Bld) 0.7 % Normal 0.0 - 7.0 [facility] Comment on above: Performed By: #### 2 03983 #### [place] [address] Erythrocyte distribution width (RBC) [Ratio] 13.0 % Normal 12.0 - 15.6 [facility] Comment on above: Performed By: #### 2 43523 #### [place] [address] Hematocrit (Bld) [Volume fraction] 39.2 % Normal 34.0 - 46.0 [facility] Comment on above: Performed By: #### 2 14550 #### [place] [address] Hemoglobin (Bld) [Mass/Vol] 13.9 g/dL Normal 12.0 - 16.0 [facility] Comment on above: Performed By: #### 2 84517 #### [place] [address] Lymph # 1.99 x10EE3/UL Normal 0.80 - 2.80 [facility] Comment on above: Performed By: #### 2 41452 #### [place] [id number] Lymphocytes/100 WBC (Bld) 16.2 % Low 20.0 - 45.0 [facility] Comment on above: Performed By: #### 2 26110 #### [place] [id number] MANUAL DIFF N/A Normal [facility] Comment on above: Performed By: #### 2 40982 #### [place] [address] MCH (RBC) [Entitic mass] 33 pg Normal 27 - 33 [facility] Comment on above: Performed By: #### 2 97129 #### [facility],[address] [place] [address] MCHC 35 X10 3 Normal 32 - 36 [facility] Comment on above: Performed By: #### 2 30797 #### [facility],[address] [place], [place] [phone] MCV (RBC) [Entitic vol] 93 fL Normal 80 - 99 [facility] Comment on above: Performed By: #### 2 10976 #### [facility],[address] [place] [address] [place] # 0.61 x10EE3/UL Normal 0.20 - 1.00 [facility] Comment on above: Performed By: #### 2 94109 #### [facility],[address] [place], [place] [phone] MONOS % 5.0 % Normal 0.0 - 10.0 [facility] Comment on above: Performed By: #### 2 57715 #### [facility],[address] [place] [address]22 Morphology Urban (Bld) [Interp] N/A Normal [facility] Comment on above: Performed By: #### 2 95413 #### [facility],[address] [place] [address]25 Neut # 9.53 x10EE3/UL High 1.50 - 7.10 [facility] Comment on above: Performed By: #### 2 50546 #### [address] [address] Neutrophils/100 WBC (Bld) 77.8 % High 46.0 - 76.0 [facility] Comment on above: Performed By: #### 2 79348 #### [facility],[address] [place], [place] [phone] PLATELET 312 x10EE3/UL Normal 150 - 450 [facility] Comment on above: Performed By: #### 2 56586 #### [facility],[address] [place] [address]92 Platelet mean volume (Bld) [Entitic vol] 7.3 fL Normal 6.6 - 10.5 [facility] Comment on above: Result Comment: AUTO MATED DIFFERENTIAL Performed By: #### 2 85554 #### [address] [address] RBC 4.22 x 10EE6/UL Normal 4.10 - 5.30 [facility] Comment on above: Performed By: #### 2 17659 #### [address] [address] WBC 12.2 x 10EE3/UL High 4.5 - 10.8 [facility] Comment on above: Performed By: #### 2 08043 #### [facility],[address] [place] [address] CHEST 1 VIEWon 04-04-2025 CHEST 1 VIEW [place] [address] Patient: JAMMIE GONZALEZ Phone#: : 1985 Age: 39 Gender: F Pt. Type: ER Account: [id number] Location: [facility] Ordering: MIGEL JAMESON Exam Date: 04/04/2025/8:57 Family Phys: Charge Code: [id number] Physician: Ceiba Order #: [id number] Dose#: PROCEDURE: X-RAY CHEST 1 VIEW COMPARISON: [facility], , CHEST 2 VIEWS, 01/28/2025, 16:58. INDICATIONS: [...] Mullen MD on 04/04/2025 at 9:09 Normal [facility] CMP with eGFRon 04-04-2025 AGE 39 years Normal [facility] Comment on above: Performed By: #### 2 01972 #### [facility],[address] [place] [address] 24564 Albumin [Mass/Vol] 3.8 g/dL Normal 3.4 - 5.0 [facility] Comment on above: Performed By: #### 2 02344 #### [facility],[address] [place] [address] 08824 Albumin/Globulin [Mass ratio] 0.9 {ratio} Normal 0.9 - 1.6 [facility] Comment on above: Performed By: #### 2 43808 #### [facility],[address] [place] [address] 41468 ALK PHOS 105 U/L Normal 46 - 116 [facility] Comment on above: Performed By: #### 2 09446 #### [facility],[address] [place] [address] 00422 ALT [Catalytic activity/Vol] 34 U/L Normal 16 - 63 [facility] Comment on above: Performed By: #### 2 98172 #### [facility],[address] [place] [address]99 Anion gap [Moles/Vol] 13 mmol/L Normal 10 - 20 [facility] Comment on above: Performed By: #### 2 89699 #### [facility],[address] [place] [address] 83756 AST [Catalytic activity/Vol] 25 U/L Normal 13 - 39 [facility] Comment on above: Performed By: #### 2 56924 #### [facility],[address] [place] [address]34 B/C RATIO 13 ratio Normal 0 - 30 [facility] Comment on above: Performed By: #### 2 25634 #### [facility],[address] [place] [address]156 Bilirubin [Mass/Vol] 0.4 mg/dL Normal 0.2 - 1.0 [facility] Comment on above: Performed By: #### 2 95816 #### [facility],[address] [place] [address] 66098 Calcium [Mass/Vol] 8.9 mg/dL Normal 8.5 - 10.1 [facility] Comment on above: Performed By: #### 2 24363 #### [facility],[address] [place], [place] [phone] Chloride [Moles/Vol] 102 mmol/L Normal 98 - 107 [facility] Comment on above: Performed By: #### 2 96071 #### [facility],[address] [place], [place] [phone] CMP with eGFR Normal [facility] Comment on above: Result Comment: COMP REHENSIVE METABOLIC PANEL Performed By: #### 2 72582 #### [facility],[address] [place] [address] 71043 CO2 [Moles/Vol] 24.1 mmol/L Normal 21.0 - 32.0 [facility] Comment on above: Performed By: #### 2 48283 #### [facility],[address] [place] [address] 25973 Creatinine [Mass/Vol] 1.02 mg/dL Normal 0.55 - 1.02 [facility] Comment on above: Performed By: #### 2 60640 #### [facility],[address] [place] [address] 19434 eGFR 60 ML/MINUTE Normal 60 - 999 [facility] Comment on above: Performed By: #### 2 38949 #### [facility],[address] [place] [address]22 GFR/1.73 sq M.predicted among non-blacks MDRD (S/P/Bld) [Vol rate/Area] mL/min/{1.73_m2} Normal 60 - 999 [facility] Comment on above: Result Comment: ACCO RDING TO THE NATIONAL KIDNEY DISEASE EDUCATION PROGRAM(NKDE), A NORMAL eGFR IS A VALUE GREATER THAN OR EQUAL TO 60 ML/MIN/1.73 SQ METERS. CHRONIC KIDNEY DISEASE: <60mL/MIN/1.73 SQ METERS KIDNEY FAILURE: <15mL/MIN/1.73 SQ METERS THIS TEST SHOULD ONLY BE USED FOR PATIENTS 18 YEARS OF AGE AND OLDER. Performed By: #### 2 55587 #### [facility],[address] [place] [address]187 Globulin (S) [Mass/Vol] 4.2 g/dL High 1.5 - 3.8 [facility] Comment on above: Performed By: #### 2 74205 #### [facility],[address] [place] [address] 79909 Glucose [Mass/Vol] 106 mg/dL Normal 74 - 106 [facility] Comment on above: Performed By: #### 2 33198 #### [facility],[address] [place] [address] 67103 Potassium [Moles/Vol] 3.5 mmol/L Normal 3.5 - 5.1 [facility] Comment on above: Performed By: #### 2 02553 #### [facility],[address] [place] [address] 35010 Protein [Mass/Vol] 8.0 g/dL Normal 6.4 - 8.2 [facility] Comment on above: Performed By: #### 2 37345 #### [facility],[address] [place] [address] 70734 Sodium [Moles/Vol] 136 mmol/L Normal 136 - 145 [facility] Comment on above: Performed By: #### 2 41398 #### [facility],[address] [place] [address] 16037 Urea nitrogen [Mass/Vol] 13 mg/dL Normal 7 - 18 [facility] Comment on above: Performed By: #### 2 55431 #### [facility],[address] [place] [address] 31361 D-DIMER, QUANTITATIVEon 07-0 D-DIMER QUANT <200 Normal 0 - 230 [facility] Comment on above: Performed By: #### 2 74001 #### [facility],[address] [place] [address] 15231 D-DIMER, QUANTITATIVE Normal [facility] Comment on above: Result Comment: RANDA T D-DIMER Performed By: #### 2 48307 #### [facility],[address] [place] [address] 93965 TROPONINon 04-04-2025 HS TROPONIN 5.2 pg/mL Normal 0.0 - 51.4 [facility] Comment on above: Performed By: #### 2 96781 #### [facility],[address] [place] [address] 93538 HS TROPONIN 4.9 pg/mL Normal 0.0 - 51.4 [facility] Comment on above: Performed By: #### 2 51253 #### [facility],[address] [place] [address] 36956 Delinquent Tax Collection Assistant Cytology Reporton 2024 Delinquent Tax Collection Assistant Cytology Report . Pathology Reports Accession: Collected Date/Time: Received Date/Time: Pathologist: [id number] 02/16/2025 13:39 EDT 02/16/2025 18:00 EDT Delinquent Tax Collection Assistant Cytology Report SPECIMEN: Specimen Description: Liquid Prep [...] and evaluated with the assistance of the Chip Path Design SystemsPrep Test Imaging System. Pathology Reports Accession: Collected Date/Time: Received Date/Time: Pathologist: [id number] 02/16/2025 13:39 EDT 02/16/2025 18:00 EDT Verified by Pathology report verified by [facility] Screened by: KK Electronically signed by Carmen ROE (ASCP) Sign-Out Date: 02/23/2025 11:24 Performing Lab: [facility], [address] [place] [address] Pathology Dept Disclaimer The Pap test is a screening test for cervical cancer. As evidenced by published data, it is subject to both inherent false negative and false positive results. Your patient's results should be interpreted in context with pertinent clinical history including gynecological examination. Normal [facility] HPVon 02-18-2025 HPV Interp See Interp HPVN Normal See Interp HPVN [facility] Comment on above: Order Comment: Order placed by AP_HPV_ORDER rule from [id number] Result Comment: Clinical Interpretation: High Risk HPV [...] detected. Performed By: #### H PV #### [address] [address] HPV Source Cervix Normal [facility] Comment on above: Order Comment: Order placed by AP_HPV_ORDER rule from [id number] Performed By: #### H PV #### [place] [id number] CHEST 2 VIEWSon 01-28-2025 CHEST 2 VIEWS [place] [address] Patient: JAMMIE GONZALEZ Phone#: : 1985 Age: 39 Gender: F Pt. Type: Out Account: [id number] Location: Ordering: KIMBERLEE KATHY Exam Date: 01/28/2025/16:58 Family Phys: Charge Code: [id number] Physician: Ceiba Order #: [id number] Dose#: PROCEDURE: X-RAY CHEST 2 VIEWS COMPARISON: [...] Charlotte Gipson MD on 01/29/2025 at 4:05 [facility] CNOVon 01-05-2025 CNOV Office Visit (SLEWST ) -------- JAMMIE GONZALEZ ([id number]) 1985 F Date Time Provider Department 01/05/25 1:30 PM BALAJI BETH During your visit today, we recorded the following information about you: Pulse Respiration Blood pressure Weight 72/minute 18/minute 102/69 82.6 kg Balaji Beth APRN.TESTER ARMATURE OR FIELDS 01/05/2025 5:17 PM Signed [facility] Follow up/ Established patient [...] activity was identified. 01/05/2025 by Balaji Beth APRN.TESTER ARMATURE OR FIELDS Treatment history: Sunosi -- tremors Modafinil -- [...] due to drowsy drivin 08/29/2024 10/05/2024 01/02/2025 [place] Sleepiness Scale Score 20 (Excessive daytime sleepine (more content not included)... Normal [facility] CPKon 11-04-2024 CPK 127 U/L Normal 26 - 192 [facility] Comment on above: Performed By: #### 2 47426 #### [facility],[address] [place] [address] HEPATIC FUNCTION PANELon Albumin [Mass/Vol] 3.5 g/dL Normal 3.4 - 5.0 [facility] Comment on above: Performed By: #### 2 90179 #### [facility],[address] [place] [address] ALK PHOS 94 U/L Normal 46 - 116 [facility] Comment on above: Performed By: #### 2 97711 #### [facility],[address] [place] [address] 32037 ALT [Catalytic activity/Vol] 29 U/L Normal 16 - 63 [facility] Comment on above: Performed By: #### 2 58196 #### [facility],[address] [place] [address] 13135 AST [Catalytic activity/Vol] 20 U/L Normal 13 - 39 [facility] Comment on above: Performed By: #### 2 01933 #### [facility],[address] [place] [address] 69853 Bilirubin [Mass/Vol] 0.3 mg/dL Normal 0.2 - 1.0 [facility] Comment on above: Performed By: #### 2 40878 #### [facility],[address] [place] [address] 82269 Bilirubin.direct [Mass/Vol] 0.1 mg/dL Normal 0.0 - 0.2 [facility] Comment on above: Performed By: #### 2 41819 #### [facility],[address] [place] [address] 73422 Hepatic function 2000 panel Normal [facility] Comment on above: Result Comment: HEPA TIC FUNCTION PROFILE Performed By: #### 2 36852 #### [facility],[address] [place] [address] 53208 Protein [Mass/Vol] 7.2 g/dL Normal 6.4 - 8.2 [facility] Comment on above: Performed By: #### 2 87240 #### [facility],[address] [place] [address] 53000 LIPID PROFILEon 11-04-2024 Cholesterol [Mass/Vol] 178 mg/dL Normal 0 - 240 [facility] Comment on above: Performed By: #### 2 50742 #### [facility],[address] [place] [address] 85335 Cholesterol in HDL [Mass/Vol] 61 mg/dL High 40 - 60 [facility] Comment on above: Performed By: #### 2 59893 #### [facility],[address] [place] [address] 30041 Cholesterol in LDL [Mass/Vol] 100 mg/dL Normal 0 - 129 [facility] Comment on above: Performed By: #### 2 37683 #### [facility],[address] [place] [address] 98689 Cholesterol.total/Chol esterol in HDL [Mass ratio] 2.9 {ratio} Normal 0.0 - 5.0 [facility] Comment on above: Performed By: #### 2 57317 #### [facility],[address] [place] [address] 04552 Lipid 1996 panel Normal [facility] Comment on above: Result Comment: LIPI D PROFILE Performed By: #### 2 24595 #### [facility],[address] [place] [address] 57286 Triglyceride [Mass/Vol] 84 mg/dL Normal 0 - 150 [facility] Comment on above: Performed By: #### 2 31481 #### [facility],[address] [place] [address] 03926 MICHELOVon 10-11-2024 CNOV Office Visit (LIZ ) -------- JAMMIE GONZALEZ ([id number]) 1985 F Date Time Provider Department 10/11/24 [...] depending on your insurance coverage. Contact your [employer] (DME) company for new supplies as needed. - Avoid driving when drowsy. 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 In the AM, has to eat while driving to stay awake with windows down. So long as moving she is good. As soon as sits down, wants to go to sleep. Never fell asleep driving. States Sunosi originally made feel better and then nothing. If combines Sunosi with Nuvigil, slight benefi (more content not included)... Normal [facility] [id number] 10-11-2024 ECG01 Ventricular Rate : 6 4 BPM Atrial Rate : 64 BPM P-R Interval : 146 ms QRS Duration : 76 ms Q-T Interval : 422 ms QTC Calculation(Bazett) : 435 ms Calculated P [place] : 61 degrees Calculated R [place] : 52 degrees Calculated T [place] : 43 degrees NORMAL SINUS RHYTHM NORMAL ECG Confirmed by MD NGUYEN GREGORY () on 10/13/2024 11:17:39 AM NAME : JAMMIE GONZALEZ PID : [id number] : 1985 Gender : Female Race : [...] , Acquired by : Floyd Jackson, [place] [facility] TOXICOLOGY SCREEN, ROUTINE U RINEon 10-11-2024 Amphetamines Confirm (U) [Mass/Vol] Negative Normal Negative [facility] Comment on above: Order Comment: Speci men Type: URINE SPECIMEN Ordering Facility: [facility] Address: [address] [place] [address] Result Comment: Cuto ff threshold at 1000 ng/mL. Performed By: #### U TOX2 #### [facility] CLIA [id number] [address] [place] [address] [place] [address] [place] BARBITURATES, URINE Negative Normal Negative [facility] Comment on above: Order Comment: Speci men Type: URINE SPECIMEN Ordering Facility: [facility] Address: [address] [place], [place] [address] Result Comment: Cuto ff threshold at 200 ng/mL. Performed By: #### U TOX2 #### [facility] CLIA [id number] [address] [place] [address] [place] BENZODIAZEPINES, UR Negative Normal Negative [facility] Comment on above: Order Comment: Speci men Type: URINE SPECIMEN Ordering Facility: [facility] Address: [address] [place] [address] Result Comment: Cuto ff threshold at 200 ng/mL. Performed By: #### U TOX2 #### [facility] CLIA [id number] [address] [place] [address] [place] Cannabinoids Screen Ql (U) Negative Normal Negative [facility] Comment on above: Order Comment: Speci men Type: URINE SPECIMEN Ordering Facility: [facility] Address: [address] [place] [address] Result Comment: Cuto ff threshold at 50 ng/mL. Performed By: #### U TOX2 #### [facility] CLIA [id number] [address] [place] [address] [place] Cocaine Ql (U) Negative Normal Negative [facility] Comment on above: Order Comment: Speci men Type: URINE SPECIMEN Ordering Facility: [facility] Address: [address] [place] [address] Result Comment: Cuto ff threshold at 300 ng/mL. Performed By: #### U TOX2 #### [facility] CLIA [id number] [address] [place] [address] [place] Ethanol (U) [Mass/Vol] <11 Normal <11 [facility] Comment on above: Order Comment: Speci men Type: URINE SPECIMEN Ordering Facility: [facility] Address: [address] [place] [address] Performed By: #### U TOX2 #### [facility] CLIA [id number] [address] [place] [address] [place] Opiates Screen Ql (U) Negative Normal Negative [facility] Comment on above: Order Comment: Speci men Type: URINE SPECIMEN Ordering Facility: [facility] Address: [address] [place] [address] Result Comment: Cuto ff threshold at 300 ng/mL. Performed By: #### U TOX2 #### [facility] CLIA [id number] [address] [place] [address] [place] oxyCODONE cutoff Screen (U) [Mass/Vol] Negative Normal Negative [facility] Comment on above: Order Comment: Speci men Type: URINE SPECIMEN Ordering Facility: [facility] Address: [address] [place] [address] Result Comment: Cuto ff threshold at 100 ng/mL. Performed By: #### U TOX2 #### [facility] [place] [id number] [address] [place] [address] [place] Phencyclidine Ql (U) Negative Normal Negative [facility] Comment on above: Order Comment: Speci men Type: URINE SPECIMEN Ordering Facility: [facility] Address: [address] [place] [address] Result Comment: Cuto ff threshold at 25 ng/mL. Performed By: #### U TOX2 #### [facility] [place] [id number] [address] [place] [address] [place] CT ABDOMEN/PELVIS W/WOon CT ABDOMEN/PELVIS W/WO [place] [address] Patient: JAMMIE GONZALEZ Phone#: : 1985 Age: 38 Gender: F Pt. Type: Out Account: [id number] Location: Ordering: Raudel RODRIGUEZ Exam Date: 10/06/2024/8:19 Family Phys: KIMBERLEE CHAVEZ Charge Code: 618258 Physician: Ceiba Order #: [id number] Dose#: 21.00 PROCEDURE: CT ABDOMEN/PELVIS WITH AND [...] 38 Gender: F Pt. Type: Out Account: [id number] Location: Ordering: Raudel RODRIGUEZ Exam Date: 10/06/2024/8:19 Family Phys: KIMBERLEE CHAVEZ Charge Code: 252857 Physician: Ceiba Order #: [id number] Dose#: 21.00 CONCLUSION: 1. There is moderate stool retention. 2. There is no evidence of acute abdominal or pelvic abnormality. Dictated by: Charlotte Gipson MD on 10/06/2024 at 16:17 Approved by: Charlotte Gipson MD on 10/06/2024 at 16:21 Normal [facility] Urine Cultureon 09-15-2024 URC Mixed Gram Positive Organisms [place] Count 11,000-25,000 MIXC Mixed contaminants. Submit a new specimen if indicated. Normal [facility] Comment on above: Performed By: #### M 100.2200 #### [facility] [address] [place], [address] CNOVon 09-01-2024 CNOV Office Visit (SLEWST ) -------- JAMMIE GONZALEZ ([id number]) 1985 F Date Time Provider Department 09/01/24 1:30 PM BALAJI BETH During your visit today, we recorded the following information about you: Pulse Blood pressure Weight 75/minute 103/70 81.9 kg Balaji Beth APRN.CNP 09/01/2024 4:05 PM Signed [facility] Follow up/ Established patient [...] CPAP - Avoid driving when drowsy. - seat coverer for short naps (20-30 minutes) and use of caffeine if needed to help stay awake when driving. - Try to get at least 7-9 hours of sleep in a 24 hour period. Healthy diet and exercise can also promote better sleep. 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 09/01/2024 by Balaji Beth APRN.[facility] Treatment history: Provigil not effective Nuvigil 2 yrs efficacy waned, couldn't fall asleep at night Adderall xr worsened mood Adderall was stopped due to weight loss Vyvanse tremor L hand was worse 06/04/23 ECG NSR at [place] Latest Reference Range AND Units 11/04/22 16:20 [...] sorted in reverse-chronological order 01/04/2024 04/04/2024 08/29/2024 [place] Sleepiness Scale Score 22 (Excessive daytime sleepiness present) 21 (Excessive daytime sleepiness present) 20 (Excessive daytime sleepiness present) 01/04/2024 04/04/2024 08/29/2024 PROMIS CAT Sleep Disturbance PROMIS Sl (more content not included)... Normal [facility] Bacteria Ur Culton 4 Bacteria identified Cx Nom (U) ORGANISM ID: 1 10,000 -<50,000 CFU/ml Normal urogenital stefani Normal [facility] Comment on above: Performed By: #### 6 30-4 #### [facility] CLIA [id number] [address] [place] [address] [place] URINALYSIS WITH MICROSCOPYon 07-24-2024 Amorphous NONE Normal [facility] Comment on above: Performed By: #### 2 65357 #### [facility],[address] [place] [address] Bacteria TRACE Normal [facility] Comment on above: Performed By: #### 2 18413 #### [facility],[address] [place] [address] Bilirubin Ql (U) Negative Normal NORMAL: NEGATIVE [facility] Comment on above: Performed By: #### 2 48075 #### [facility],[address] [place], [place] [id number] Casts NONE Normal [facility] Comment on above: Performed By: #### 2 61827 #### [facility],[address] [place] [address] Clarity (U) clear Normal NORMAL: CLEAR [facility] Comment on above: Performed By: #### 2 62678 #### [facility],[address] [place] [address] Color (U) yellow Normal NORMAL: YELLOW [facility] Comment on above: Performed By: #### 2 69421 #### [facility],[address] [place] [address] Crystals LM Nom (Urine sed) NONE Normal [facility] Comment on above: Performed By: #### 2 81937 #### [facility],[address] [place] [address] Epi Cells OCC Normal [facility] Comment on above: Performed By: #### 2 39515 #### [facility],[address] [place] [address] Glucose Ql (U) NORM Normal NORMAL: NORMAL [facility] Comment on above: Performed By: #### 2 54866 #### [facility],[address] [place] [address] Hemoglobin Ql (U) 50 Abnormal NORMAL: NEGATIVE [facility] Comment on above: Performed By: #### 2 40018 #### [facility],[address] [place] [address] Ketone Negative Normal NORMAL: NEGATIVE [facility] Comment on above: Performed By: #### 2 43647 #### [facility],[address] [place] [address] Leukocytes 25 Abnormal NORMAL: NEGATIVE [facility] Comment on above: Result Comment: URIN E MICROSCOPIC Performed By: #### 2 03134 #### [facility],[address] [place] [address] Mucous NONE Normal [facility] Comment on above: Performed By: #### 2 61079 #### [facility],[address] [place] [address] Nitrite Ql (U) Negative Normal NORMAL: NEGATIVE [facility] Comment on above: Performed By: #### 2 11698 #### [facility],[address] [place] [address] pH (U) 6 [pH] Normal NORMAL: 5.0-8.0 [facility] Comment on above: Performed By: #### 2 99169 #### [facility],[address] [place] [address] Protein Ql (U) Negative Normal NORMAL: NEGATIVE [facility] Comment on above: Performed By: #### 2 67414 #### [facility],[address] [place] [address] Rbc 15-20 Normal 0-3 / hpf [facility] Comment on above: Performed By: #### 2 23736 #### [facility],[address] [place] [address] Sp [place] 1.015 Normal NORMAL: 1.010-1.030 [facility] Comment on above: Performed By: #### 2 50672 #### [facility],[address] [place] [address] Specimen Type R Normal [facility] Comment on above: Performed By: #### 2 70025 #### [facility],[address] [place] [address] URINALYSIS WITH MICROSCOPY Normal [facility] Comment on above: Result Comment: URIN ALYSIS Performed By: #### 2 07791 #### [facility],[address] [place] [address] Urobilinog NORM Normal NORMAL: NORMAL [facility] Comment on above: Performed By: #### 2 76479 #### [facility],[address] [place], [place] [id number] Wbc 16-25 Normal 0-5 / hpf [facility] Comment on above: Performed By: #### 2 78532 #### [facility],[address] [place] [address] Yeast NONE Normal [facility] Comment on above: Performed By: #### 2 21189 #### [facility],[address] [place], [place] [address] URINE CULTURE [CCL]on 2023 Bacteria identified Cx Nom (U) URCUL See Results Below See Below CULTURE, URINE NORMAL UROGENITAL STEFANI 10,000 -<50,000 CFU/ml Normal urogenital stefani SOURCE: Urine (Nonspecific) [facility] [address] [place] [address] Jose De Dios III, M.D. [id number] Normal [facility] Comment on above: Performed By: #### 2 47805 #### [facility],[address] [id number] Cervical or vagninal specime n microscopic examination by cytology stain (reported asOrdered By: Glenna Mauro on 06-16-2023 Cytology report Cyto stain Doc (Cvx/Vag) Comment . [facility] Comment on above: The Pap smear is [...] DNA Probe+sig amp Ql (Cvx) Negative Negative [facility] Detection in cervical specim en of any of human papilloma virus (HPV) 16, 18, 31, 33,Ordered By: Glenna Mauro on 06-16-2023 HPV 16+18+31+33+35+39+45+5 1+52+56+58+59+66+68 DNA Probe+sig amp Ql (Cvx) Positive Negative [facility] Comment on above: This nucleic acid am plification test detects fourteen high- risk HPV types (16,18,31,33,35,39,45,51,52,56,58,59,66,68)without differentiation. Laboratory - CytologyOrdered By: Glenna Mauro on 06-16-2023 Radiator Specialist Cyto stain Nom (Cvx/Vag) [ID] Comment . [facility] Comment on above: Harry Conde totechnologist Laboratory - Miscellaneous t estsOrdered By: Glenna Mauro on 06-16-2023 Service comment (Unsp spec) [Interp] Comment . [facility] Comment on above: This liquid based Th inPrep(R) pap test was screened withthe use of an image guided system. Service comment (Unsp spec) [Interp] . . [facility] Liquid-based cerv Pap + CT/G C by TIA w reflex to high-risk HPV for ASCUSOrdered By: Glenna Mauro on 06-16-2023 Cytology report Cyto stain.thin prep Doc (Cvx/Vag) Comment . [facility] Comment on above: Criteria met, see HP V Genotype results. No Panel InformationOrdered By: Glenna Mauro on 06-16-2023 HPV Type 18 Comment Negative Negative [facility] Comment on above: Performed at: [facility] [id number] [place], [place] [id number] Director: Amy Moody MD, Phone: [phone] at: =G - [facility] [address] [id number] Director: Amy Moody MD, Phone: [phone] Pathology report final diagnosis Narrative Comment . [facility] Comment on above: NEGATIVE FOR INTRAEP ITHELIAL LESION OR MALIGNANCY. Laboratory - Drug toxicology on 03-27-2023 Amphetamines Ql (U) Positive <1000 ng/mL [place] Benzodiazepines Ql (U) Negative < 200 ng/mL [facility] Cannabinoids Screen Ql (U) Negative < 50 ng/mL [facility] Cocaine Ql (U) Negative < 300 ng/mL [facility] Opiates Ql (U) Negative < 300 ng/mL [facility] No Panel Informationon 03-27 MDMA (Ecstasy) Screen Negative < 500 ng/mL [facility] Urine Barbiturates Screen Negative < 200 ng/mL [facility] Urine Drug Screen Comment [facility] Comment on above: CONFIRMATORY TESTING FOR ALL [...] TESTING MUST BE ORDERED SEPARATELY. USE TESTMNEMONIC: HICA Urine Methadone Screen Negative < 300 ng/mL [facility] Urine phencyclidine (PCP) de tectionon 03-27-2023 Phencyclidine Ql (U) Negative < 25 ng/mL [place] Basophil percentageOrdered B y: Dr. Mauro on 03-20-2023 WBC (Bld) [#/Vol] 8.1 10*3/uL 4.4-11.0 [facility] Blood erythrocytes count (nu mber/volume)Ordered By: Dr. Mauro on 03-20-2023 RBC (Bld) [#/Vol] 4.44 10*6/uL 4.2-5.4 [facility] Blood hemoglobin measurement (mass/volume)Ordered By: Dr. Mauro on 03-20-2023 Hemoglobin (Bld) [Mass/Vol] 14.0 g/dL 12.0-15.0 [facility] Blood platelet mean volumeOr dered By: Dr. Mauro on 03-20-2023 Platelet mean volume (Bld) [Entitic vol] 9.8 fL 6.2-12.0 [facility] Determination of erythrocyte mean corpuscular volume (MCV)Ordered By: Dr. Mauro on 03-20-2023 MCV (RBC) [Entitic vol] 92.6 fL 81-99 [facility] Hematocrit Auto (Bld) [Volum e fraction]Ordered By: Dr. Mauro on 03-20-2023 Hematocrit (Bld) [Volume fraction] 41.1 % 37-47 [facility] - Chemistry and C hemistry - challengeOrdered By: Dr. Willis on 03-20-2023 HCG ( test) Ql (U) Negative [facility] Comment on above: Very dilute urine sp ecimens, as indicated by a low specificgravity, may not contain customer success representative levels of hCG. If is still suspected, a first morning urinespecimen should be collected 48 hours later and tested. Laboratory - Hematology and Cell countsOrdered By: Dr. Mauro on 03-20-2023 Erythrocyte distribution width (RBC) [Entitic vol] 45.1 fL 35.1-43.9 [facility] Erythrocyte distribution width (RBC) [Ratio] 13.2 % 11.6-14.6 [facility] MCH (RBC) [Entitic mass] 31.5 pg 27.0-32.0 [facility] MCHC Auto (RBC) [Mass/Vol]Or dered By: Dr. Mauro on 03-20-2023 MCHC (RBC) [Mass/Vol] 34.1 g/dL 32-36 [facility] Platelets bldOrdered By: Dr. Mauro on 03-20-2023 Platelets (Bld) [#/Vol] 254 10*3/uL 150-450 [facility] Cervical or vagninal specime n microscopic examination by cytology stain (reported asOrdered By: Dr. Mauro on 12-20-2022 Cytology report Cyto stain Doc (Cvx/Vag) Comment . [facility] Comment on above: The Pap smear is [...] DNA Probe+sig amp Ql (Cvx) Negative Negative [facility] Detection in cervical specim en of any of human papilloma virus (HPV) 16, 18, 31, 33,Ordered By: Dr. Mauro on 12-20-2022 HPV 16+18+31+33+35+39+45+5 1+52+56+58+59+66+68 DNA Probe+sig amp Ql (Cvx) Positive Negative [facility] Comment on above: This nucleic acid am plification test detects fourteen high- risk HPV types (16,18,31,33,35,39,45,51,52,56,58,59,66,68)without differentiation. Laboratory - CytologyOrdered By: Dr. Mauro on 12-20-2022 Radiator Specialist Cyto stain Nom (Cvx/Vag) [ID] Comment . [facility] Comment on above: Harry Salinas totechnologist (ASCP) Laboratory - Miscellaneous t estsOrdered By: Dr. Mauro on 12-20-2022 Service comment (Unsp spec) [Interp] Comment . [facility] Comment on above: This liquid based Th inPrep(R) pap test was screened withthe use of an image guided system. Service comment (Unsp spec) [Interp] . . [facility] Liquid-based cerv Pap + CT/G C by TIA w reflex to high-risk HPV for ASCUSOrdered By: Dr. Mauro on 12-20-2022 Cytology report Cyto stain.thin prep Doc (Cvx/Vag) Comment . [facility] Comment on above: Criteria met, see HP V Genotype results. No Panel InformationOrdered By: Dr. Mauro on 12-20-2022 HPV Type 18 Comment Negative Negative [facility] Comment on above: Performed at: [facility] [address] [id number] Director: Amy Moody MD, Phone: [phone] at: =G - [facility] [address] [id number] Director: Amy Moody MD, Phone: [phone] Pathology report final diagnosis Narrative Comment . [facility] Comment on above: NEGATIVE FOR INTRAEP ITHELIAL LESION OR MALIGNANCY.FUNGAL ORGANISMS MORPHOLOGICALLY CONSISTENT WITH MARIANNE SPECIES AREPRESENT.CELLULAR CHANGES ASSOCIATED WITH INFLAMMATION ARE PRESENT. HepB SurfaceAb,Quanton 07-12 HepB SurfaceAb,Quant 73.28 mIU/mL High <8.00 [facility] Comment on above: Performed By: #### A HBSQ #### [facility]ine Lab [address] [place], [place] [address] HepB SurfaceAb,Quanton 09-12 HepB SurfaceAb,Quant <8.00 Normal <8.00 [facility] Comment on above: Performed By: #### M UMPSG, MEASLG, RUBIGG, AHBSQ #### [facility] [address] [place], [place] [address] Measles IgG Antibodyon 09-11 Measles IgG Ab, Qual Abnormal Negative [facility] Comment on above: Result Comment: Posi tive Presence of detectable measles virus IgG antibodies. A positive result generally indicates exposure to measles virus or previous vaccination. Performed By: #### M UMPSG, MEASLG, RUBIGG, AHBSQ #### [facility] [address] [place], [place] [address] Measles IgG Antibody Normal [facility] Comment on above: Result [...] #### M UMPSG, MEASLG, RUBIGG, AHBSQ #### [facility] [address] [place], [place] [address] Mumps IgG Abon 09-11-2020 Mumps IgG Ab 73.1 AU/mL Normal [facility] Comment on above: Performed By: #### M UMPSG, MEASLG, RUBIGG, AHBSQ #### [facility] [address] [place] [phone] Mumps IgG, Qual Positive Abnormal Negative [facility] Comment on above: Performed By: #### M UMPSG, MEASLG, RUBIGG, AHBSQ #### [facility] [phone] Rubella IgG Antibodyon 09-11 Rubella IgG Ab 1.74 Index Value Normal [facility] Comment on above: Performed By: #### M UMPSG, MEASLG, RUBIGG, AHBSQ #### [facility] [phone] Rubella IgG Ab, Qual Positive Abnormal Negative [facility] Comment on above: Performed By: #### M UMPSG, MEASLG, RUBIGG, AHBSQ #### [facility] Routine Lab [address] [place], [place] [address] Provider Note - ED v2on Provider Note - ED v2 Provider Note - ED v2: Chart Review: ED NOTES ED NOTES: ====HPI==== Ms. Gonzalez is a 33 y/o WF presents with c/o closed head injury at [facility] this morning approximately 08:45hrs. Pt says during [...] neck pain, she's been initially evaluated at [facility] in [place], [place] this morning. Pt is feeling improved [...] TOBACCO neg ETOH neg DRUGS Occupation: employed [employer] [facility] [employer] [facility] ====Review of Systems==== 10 point system review is negative except for those specifically mentioned in history of present illness ====Physical Exam==== VITALS: reviewed Constitutional/General: Alert and conversant, well appearing, nontoxic, and in NAD. WF ED #1, sitting at 45degree angle in ED [facility], speaking full sentences, female visitor [...] made to minimize errors. Minor errors in screw machine hand may be present. Please call if questions.. [...] a day SIGNIFICANT EVENTS: No documented data. PARTS SALES COUNTERPERSON: Is : no(1) Is : no(1) RESULTS/VITAL SIGNS VITAL SIGNS: T PRBP SpO2O2(LPM) %FiO2 Method 07-Oct-2019 09:38:[id number]/83 100 room air, no respiratory support 07-Oct-2019 09:26:[id number]/83 100 room air, no respiratory support MEDICAL [...] CT brain not pursued since pt meets [place] CT brain rules. CLINICAL DECISION SUPPORT GEORGIAN C-SPINE RULE Do Any High Risk Factors [...] Actively Rotate Neck Left and Right: yes GEORGIAN CT HEAD RULE FOR MINOR HEAD INJURY [...] Referenced From Triage - ED 07-Oct-2019 09:38 [facility] Provider Note - ED v2 Provider Note [...] documented data. SIGNIFICANT EVENTS: No documented data. 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 Patient states she did vomit one time in is been extremely nauseous ever since. Patient complains of light sensitivity, sound sensitivity, mental fogginess, headache, but denies loss of consciousness. Patient states the symptoms are worse with activity. Patient denies use of any vaor-lsv-ohqjtkc medications or home remedies prior to arrival [...] normal strength, no tenderness, no swelling. Integumentary: Kerrick, warm, dry, and Intact. Neurologic: Alert, Oriented, [...] answered. Patient leaves via private vehicle to [facility] emergency room in [facility]. Patient Instructions: Go to the nearest emergency room immediately for further evaluation CLINICAL IMPRESSION Diagnosis/Annotation: ED Dx Name:Concussion without loss of consciousness Code:S06.0X0A Dispostion: discharged Type: home ATTESTATION CRITICAL CARE TIME Is this a critically ill patient: no Electronic Signatures: Issac Dhillon (SEED BUYER-TESTER ARMATURE OR FIELDS) (Signed 07-Oct-2019 09:40) Authored: Provider Note - ED v2 Last Updated: 07-Oct-2019 09:40 by Issac Dhillon (SEED BUYER-TESTER ARMATURE OR FIELDS) Normal [facility] Risk Screen - Adult Emergenc yon [...] instruction; written material Cultural Considerationsnone Developmental Considerationsnone Confucianism Considerationsnone Learning Assessment (Other Learner): Learning Assessment (Other Learner): Other learner availableyes... Learnerfriend Factors Influencing Readiness to Learnn/a Factors that Impact Ability to Learnnone Devices/Methods Used to Communicatenone Learning Preferencesverbal instruction, written material Cultural Considerationsnone Developmental Considerationsnone Confucianism Considerationsnone Pressure Injury/TB/Substance: Pressure Injury: Do you have a coughno Substance Use Current or Former HistoryYES: Alcohol Alcohol Useoccasionally Admission Risk Screen: Significant IndicatorsComplete CAGE: CAGE: Is this an injured patient at a Trauma Center ([facility]/[place] /[place]): no Electronic Signatures: Anjali Whiteside (RN) (Signed 07-Oct-2019 09:48) Authored: Preferred Language, Advanced Directives, Family Violence Adult, Learning Assessment (Patient), Learning Assessment (Other Learner), Pressure Injury/TB/Substance, CAGE Last Updated: 07-Oct-2019 09:48 by Anjali Whiteside (RN) [facility] Triage - EDon 10-07-2019 Triage - ED [...] Accompanied By: self Language: Spoken Language Preferred: [place] Reading Language Preferred: [place] Present on Arrival: Device Present on Arrival [...] 07-Oct-2019 10:09 by Halle Medina (KENNETH) Normal [facility] Vital Signs Date Time Vital Sign Value Performing Clinician Facility 01-05-2025 13:30-0400 Body mass index (BMI) [Ratio] 30.29 kg/m2 Balaji Beth APRN.[employer]ER [employer] Work Phone: [facility] 01-05-2025 13:30-0400 Body weight 82.56 kg Balaji Kirit SEED BUYER.[employer] Work Phone: [facility] 01-05-2025 13:30-0400 Diastolic blood pressure 69 mm[Hg] Balaji Kirit SEED BUYER.[employer] Work Phone: [facility] 01-05-2025 13:30-0400 Heart rate 72 /min Balaji Kirit SEED BUYER.[employer] Work Phone: [facility] 01-05-2025 13:30-0400 Respiratory rate 18 /min Balaji Kirit SEED BUYER.[employer] Work Phone: [facility] 01-05-2025 13:30-0400 SaO2% (BldA) [Mass fraction] 98 % Balaji Ikrit SEED BUYER.[employer] Work Phone: [facility] 01-05-2025 13:30-0400 Systolic blood pressure 102 mm[Hg] Balaji Kirit SEED BUYER.[employer] Work Phone: [facility] 10-11-2024 09:27-0500 Body mass index (BMI) [Ratio] 30.35 kg/m2 Migel King Jr., MD Work Phone: [facility] 10-11-2024 09:27-0500 Body weight 82.74 kg Migel King Jr., MD Work Phone: [facility] 10-11-2024 09:27-0500 Diastolic blood pressure 74 mm[Hg] Migel King Jr., MD Work Phone: [facility] 10-11-2024 09:27-0500 Heart rate 67 /min Migel King Jr., MD Work Phone: [facility] 10-11-2024 09:27-0500 SaO2% (BldA) [Mass fraction] 98 % Migel King Jr., MD Work Phone: [facility] 10-11-2024 09:27-0500 Systolic blood pressure 109 mm[Hg] Migel King Jr., MD Work Phone: [facility] 09-01-2024 13:27-0500 Body mass index (BMI) [Ratio] 30.05 kg/m2 Balaji Kirit SEED BUYER.[employer] Work Phone: [facility] 09-01-2024 13:27-0500 Body weight 81.92 kg Balaji Kirit SEED BUYER.[employer] Work Phone: [facility] 09-01-2024 13:27-0500 Diastolic blood pressure 70 mm[Hg] Balaji Kirit SEED BUYER.[employer] Work Phone: [facility] 09-01-2024 13:27-0500 Heart rate 75 /min Balaji Kirit SEED BUYER.[employer] Work Phone: [facility] 09-01-2024 13:27-0500 SaO2% (BldA) [Mass fraction] 98 % Balaji Kirit SEED BUYER.[employer] Work Phone: [facility] 09-01-2024 13:27-0500 Systolic blood pressure 103 mm[Hg] Balaji Kirit SEED BUYER.[employer] Work Phone: [facility] 04-09-2024 14:25-0400 Body mass index (BMI) [Ratio] 31.65 kg/m2 Balaji Kirit SEED BUYER.[employer] Work Phone: [facility] 04-09-2024 14:25-0400 Body weight 86.27 kg Balaji Kirit SEED BUYER.[employer] Work Phone: [facility] 04-09-2024 14:25-0400 Diastolic blood pressure 63 mm[Hg] Balaji Kirit SEED BUYER.[employer] Work Phone: [facility] 04-09-2024 14:25-0400 Heart rate 82 /min Balaji Kirit SEED BUYER.[employer] Work Phone: [facility] 04-09-2024 14:25-0400 Respiratory rate 16 /min Balaji Kirit SEED BUYER.[employer] Work Phone: [facility] 04-09-2024 14:25-0400 SaO2% (BldA) [Mass fraction] 98 % Balaji Kirit SEED BUYER.[employer] Work Phone: [facility] 04-09-2024 14:25-0400 Systolic blood pressure 94 mm[Hg] Balaji Kirit SEED BUYER.[employer] Work Phone: [facility] 01-09-2024 13:52-0400 Body weight 85.46 kg Balaji Kirit SEED BUYER.[employer] Work Phone: [facility] 01-09-2024 13:52-0400 Diastolic blood pressure 73 mm[Hg] Balaji Kirit SEED BUYER.[employer] Work Phone: [facility] 01-09-2024 13:52-0400 Heart rate 77 /min Balaji Kirit SEED BUYER.TESTER [employer] Work Phone: [facility] 01-09-2024 13:52-0400 Respiratory rate 18 /min Balaji Kirit SEED BUYER.[employer] Work Phone: [facility] 01-09-2024 13:52-0400 SaO2% (BldA) [Mass fraction] 98 % Balaji Kirit SEED BUYER.[employer] Work Phone: [facility] 01-09-2024 13:52-0400 Systolic blood pressure 108 mm[Hg] Balaji Kirit SEED BUYER.[employer]ER [employer] Work Phone: [facility] 06-04-2023 13:02-0400 Body height 165.[address] Kimberlee Chavez Work Phone: [facility] 06-04-2023 13:02-0400 Body mass index (BMI) [Ratio] 30.9 kg/m2 Dr. Kimberlee Chavez Work Phone: [facility] 06-04-2023 13:02-0400 Body weight 84.[address] Kimberlee Chavez Work Phone: [facility] 06-04-2023 13:02-0400 Diastolic blood pressure 61 mm[Hg] Dr. Kimberlee Chavez Work Phone: [facility] 06-04-2023 13:02-0400 Heart rate 78 /min Dr. Kimberlee Chavez Work Phone: [facility] 06-04-2023 13:02-0400 Respiratory rate 18 /min Dr. Kimberlee Chavez Work Phone: [facility] 06-04-2023 13:02-0400 Systolic blood pressure 100 mm[Hg] Dr. Kimberlee Chavez Work Phone: [facility] 03-20-2023 14:30-0400 Diastolic blood pressure 64 mm[Hg] [facility] 03-20-2023 14:30-0400 Heart rate 55 /min [facility] 03-20-2023 14:30-0400 Respiratory rate 16 /min [facility] 03-20-2023 14:30-0400 SaO2% (BldA) [Mass fraction] 98 % [facility] 03-20-2023 14:30-0400 Systolic blood pressure 110 mm[Hg] [facility] 03-20-2023 13:08-0400 Body temperature 98.4 [degF] [facility] 03-20-2023 11:52-0400 Body height 165.1 cm [facility] 03-20-2023 11:52-0400 Body mass index (BMI) [Ratio] 29 kg/m2 [facility] 03-20-2023 11:52-0400 Body weight 79.2 kg [facility] 10-21-2022 11:57-0500 Body weight 73.94 kg Guille Gandara APRN.CNP Work Phone: [facility] 10-21-2022 11:57-0500 Diastolic blood pressure 77 mm[Hg] Guille Gandara APRN.CNP Work Phone: [facility] 10-21-2022 11:57-0500 Heart rate 113 /min Guille Gandara APRN.[employer] Work Phone: [facility] 10-21-2022 11:57-0500 SaO2% (BldA) [Mass fraction] 98 % Guille Gandara APRN.[employer] Work Phone: [facility] 10-21-2022 11:57-0500 Systolic blood pressure 129 mm[Hg] Guille Gandara APRN.[employer] Work Phone: [facility] 10-27-2019 14:07-0500 BMI (Body Mass Index) 24.3 kg/m2 [facility] 10-27-2019 14:07-0500 Body weight 66.22 kg [facility] 10-27-2019 14:07-0500 BP Diastolic 68 mm[Hg] [facility] 10-27-2019 14:07-0500 BP Systolic 100 mm[Hg] [facility] 10-27-2019 14:07-0500 Height 165.1 cm [facility] 10-27-2019 14:07-0500 Pulse (Heart Rate) 86 /min [facility] 10-27-2019 14:07-0500 Pulse Oximetry 98 % [facility] Encounters Encounter Date Encounter Type Care Provider Facility Start: 06-28-2025 ambulatory KIMBERLEE CHAVEZ [facility] Start: 05-04-2025 End: 05-04-2025 ambulatory [employer] [facility] Start: 04-04-2025 End: 04-04-2025 Emergency department patient visit KIMBERLEE CHAVEZ [facility] Start: 02-16-2025 End: 02-20-2025 ambulatory JERRY RAINEY MD Facility:A Start: 02-16-2025 End: 02-20-2025 Encounter for gynecological examination (general) (routine) without abnormal findings JERRY RAINEY MD Facility:[facility] Start: 02-02-2025 End: 02-02-[address] [facility] Start: 01-28-2025 End: 01-28-2025 [facility] Start: 01-25-2025 End: 01-25-2025 Refill Balaji Beth SEED BUYER.[employer] Work Phone: Neurology Comment on above: Refill Request Start: 01-05-2025 End: 01-05-2025 Patient encounter procedure Balaji Beth SEED BUYER.[employer] Work Phone: Neurology Comment on above: Idiopathic hypersomn ia (Primary Dx); LORENA on CPAP Start: 01-05-2025 End: 01-05-2025 ambulatory BALAJI KIRIT Facility:[facility] Start: 01-04-2025 End: 01-04-2025 ambulatory [facility] Start: 11-04-2024 End: 11-04-2024 [facility] Start: 10-14-2024 End: 07-14-2025 ambulatory Raudel RODRIGUEZ [facility] Start: 10-12-2024 End: 10-13-2024 ambulatory Migel King MD Work Phone: Neurology Comment on above: Mask Start: 10-11-2024 End: 10-11-2024 ambulatory MIGEL KING JR Facility:[facility] Start: 10-11-2024 End: 10-11-2024 ambulatory MIGEL KING JR Facility:[facility] Start: 10-11-2024 End: 10-11-2024 Patient encounter procedure Migel King MD Work Phone: Neurology Comment on above: Idiopathic hypersomn ia (Primary Dx); LORENA on CPAP; On stimulant medication Start: 10-06-2024 End: 10-06-2024 ambulatory [facility] Start: 10-06-2024 End: 10-06-2024 [facility] Start: 09-30-2024 End: 09-30-[address] [facility] Start: 09-13-2024 End: 09-13-2024 ambulatory Kimberlee Cahvez Facility:[facility] Start: 09-01-2024 End: 09-01-2024 Patient encounter procedure Balaji Kirit SEED BUYER.[employer] Work Phone: Neurology Comment on above: Idiopathic hypersomn ia (Primary Dx); LORENA on CPAP Start: 09-01-2024 End: 09-01-2024 ambulatory BALAJI KIRIT Facility:[facility] Start: 08-18-2024 End: 08-18-2024 ambulatory [facility] Start: 07-24-2024 End: 07-24-2024 ambulatory KIMBERLEE Malcolm [facility] Start: 07-21-2024 End: 07-22-2024 Refill Balaji Kirit SEED BUYER.[employer] Work Phone: Neurology Comment on above: Refill Request Start: 07-14-2024 End: 07-14-2024 ambulatory [facility] Start: 06-30-2024 End: 06-30-2024 ambulatory [facility] Start: 05-18-2024 End: 05-18-2024 ambulatory [facility] Start: 04-16-2024 Telephone encounter Balaji Kristyn orne SEED BUYER.[employer] Work Phone: Neurology Comment on above: Brass [employer]er - O ther Start: 04-09-2024 End: 04-09-2024 Patient encounter procedure Balaji Kirit SEED BUYER.[employer] Work Phone: Neurology Comment on above: Idiopathic hypersomn ia (Primary Dx); LORENA on CPAP Start: 04-02-2024 Telephone encounter Balaji Kristyn orne SEED BUYER.[employer] Work Phone: Neurology Comment on above: PAP Therapy Follow U p Start: 03-15-2024 Refill Balaji Kirit SEED BUYER.[employer] Work Phone: Neurology Comment on above: Refill Request Start: 02-26-2024 ambulatory Balaji Kirit SEED BUYER.[employer] Work Phone: Neurology Comment on above: [employer] Start: 01-19-2024 ambulatory Balaji Kirit SEED BUYER.[employer] Work Phone: Neurology Comment on above: hypersomnia Start: 01-19-2024 E-mail encounter fro ness caregiver Balaji Beth JUDY.[employer] Work Phone: Neurology Start: 01-09-2024 End: 01-09-2024 Patient encounter procedure Balaji Beth JUDY.[employer] Work Phone: Neurology Comment on above: Idiopathic hypersomn ia (Primary Dx); LORENA on CPAP Start: 01-02-2024 Telephone encounter Balaji dwyer APRN.[employer] Work Phone: Neurology Comment on above: PAP Therapy Follow U p (12/03/23 - 01/01/24) Start: 12-28-2023 Refill Balaji Beth APRN.[employer] Work Phone: Neurology Comment on above: Refill Request Start: 10-06-2023 End: 08-10-2024 ambulatory Balaji Beth APRN.[employer] Work Phone: Neurology Comment on above: hypersomnia Start: 10-06-2023 End: 08-10-2024 E-mail encounter from caregiver Balaji Beth JUDY.[employer] Work Phone: Neurology Start: 08-06-2023 Telephone encounter Tonia howard MD Work Phone: Neurology Comment on above: Insurance Authorizat ion ([employer]) Start: 08-04-2023 End: 08-04-2023 Telemedicine consultation with patient Tonia Worrell MD Work Phone: [facility] Start: 08-04-2023 End: 08-04-2023 ambulatory Tonia Worrell MD Work Phone: Neurology Comment on above: Gonzalez LORENA on CPAP (Primary Dx); Excessive daytime sleepiness; 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 Hossein Chavez Work Phone: [facility] Work Phone: Start: 06-25-2023 Non-patient / Non-visit Dr. Hossein Chavez Work Phone: [facility] Start: 06-25-2023 End: 06-25-[address] Kimberlee Chavez Work Phone: [facility] Work Phone: Start: 06-25-2023 End: 06-25-[address] Kimberlee Chavez Work Phone: [facility] Work Phone: Start: 06-16-2023 End: 06-16-[address] Kimberlee Chavez Work Phone: [facility] Work Phone: Start: 06-16-2023 End: 06-16-[address] Kimberlee Chavez Work Phone: [facility]Laboratory, Specimen Work Phone: Start: 06-04-2023 End: 06-04-[address] Kimberlee Chavez Work Phone: [facility] Work Phone: Start: 05-27-2023 Telephone encounter Tonia howard MD Work Phone: Neurology Comment on above: Brass Cleaner - O ther (Follow up) Start: 05-26-2023 End: 05-26-2023 ambulatory Tonia Worrell MD Work Phone: Neurology Comment on above: LORENA on CPAP (Primary Dx); Hypersomnia; Severe major depression without psychotic features (HCC) Start: 05-26-2023 End: 05-26-2023 Telemedicine consultation with patient Tonia Worrell MD Work Phone: [facility] Start: 05-19-2023 Telephone encounter Tonia howard MD Work Phone: Neurology Comment on above: PAP Therapy Follow U p (03/20/23 - 05/18/23 ) Start: 03-27-2023 End: 03-27-2023 ambulatory [facility] Work Phone: Start: 03-27-2023 End: 03-27-2023 Patient encounter procedure [facility] Work Phone: Start: 03-20-2023 End: 03-20-2023 Admission to same day surgery center [facility] Start: 03-20-2023 End: 03-20-2023 ambulatory [facility] Work Phone: Start: 01-13-2023 End: 01-13-2023 ambulatory [facility] Work Phone: Start: 01-13-2023 End: 01-13-2023 Patient encounter procedure [facility] Specimen Start: 01-03-2023 ambulatory Tonia Worrell MD Work Phone: Neurology Comment on above: ECG and MWT Start: 12-26-2022 ambulatory Tonia Worrell MD Work Phone: Neurology Comment on above: MSLT Start: 12-20-2022 End: 12-20-2022 ambulatory [facility] Work Phone: Start: 12-20-2022 End: 12-20-2022 Patient encounter procedure [facility] Specimen Start: 12-12-2022 Telephone encounter Tonia howard MD Work Phone: Neurology Comment on above: Brass Cleaner - O ther (Follow up) Start: 12-09-2022 End: 12-09-2022 ambulatory Tonia Worrell MD Work Phone: Neurology Comment on above: LORENA on CPAP (Primary Dx); Hypersomnia; On stimulant medication; Severe major depression without psychotic features (HCC) Start: 12-09-2022 End: 12-09-2022 Telemedicine consultation with patient Tonia Worrell MD Work Phone: [facility] Start: 12-06-2022 Telephone encounter Tonia howard MD Work Phone: Neurology Comment on above: PAP Therapy Follow U p (DOWNLOAD) Start: 11-21-2022 ambulatory Tonia Worrell MD Work Phone: Neurology Comment on above: Jammie Gonzalez Start: 11-01-2022 Chart abstracting Actigraphy N eur (Hist) Neurology Start: 10-30-2022 Telephone encounter Tonia howard MD Work Phone: Neurology Comment on above: PAP Rx Faxed (DME Da sco); Brass Cleaner - Other Start: 10-29-2022 Telephone encounter Tonia howard MD Work Phone: Neurology Comment on above: Lab Orders Start: 10-25-2022 End: 10-25-2022 Patient encounter procedure [facility] Work Phone: [facility] Comment on above: Screening-pulmonary TB (Primary Dx) Start: 10-22-2022 Telephone encounter Guille piña SEED BUYER.[employer]EL[employer] Work Phone: Neurology Comment on above: PAP Therapy Follow U p; Patient Update Received Outside [facility] Records (Titration, MSLT etc); [facility]. (Outside Medical Records) Start: 10-21-2022 End: 10-21-2022 Patient encounter procedure Guille Gandara SEED BUYER.[employer] Work Phone: Neurology Comment on above: Obstructive sleep ap clint (Primary Dx); Excessive daytime sleepiness Start: 10-27-2019 End: 10-27-2019 Office outpatient visit 15 minutes Francesco Claros Work Phone: [facility] Comment on above: Severe recurrent betty or depression without psychotic features (HCC) Start: 10-05-2019 End: 10-05-2019 Refill Francescogabriel Claros Work Phone: [facility] Comment on above: Severe recurrent betty or [...] 1:00 PM EDT Office Visit Neurology [address] [place] [address] Balaji Beth, SEED BUYER.[employer] [address] [address] Linked [employer], LORENA on pap & Excessive daytime sleepiness Neurology Comment on above: Linked [employer], LORENA o n pap & Excessive daytime sleepiness Start: 12-16-2024 End: 12-16-2024 Patient encounter procedure 12/16/2024 2:00 PM EDT Office Visit Neurology [address] [place] [address] Balaji Beth, SEED BUYER.[employer] [address] [place] [address] shaun 10/11/24 [facility], Lorena on pap & Excessive daytime sleepiness Neurology Comment on above: shaun 10/11/24 [facility], Lorena on pap & Excessive daytime sleepiness Start: 11-30-2024 End: 03-01-2025 TOXICOLOGY SCREEN, ROUTINE URINE TOXICOLOGY SCREEN, ROUTINE URINE Lab Routine Idiopathic hypersomnia Expected: 11/30/2024 (Approximate), Expires: 03/01/2025 [facility] Comment on above: Expected: 11/30/2024 (Approximate), Expires: 03/01/2025 Start: 10-11-2024 End: 01-10-2025 TOXICOLOGY SCREEN, ROUTINE URINE [facility] Comment on above: Expected: 10/11/2024 , Expires: 01/10/2025 Start: 10-11-2024 End: 10-11-2024 Patient encounter procedure Neurology Comment on above: Six month follow up LORENA (60 min per provider request) Start: 09-01-2024 End: 09-01-2025 ECG COMPLETE ECG COMPLETE ECG Routine Idiopathic hypersomnia Expected: 09/01/2024, Expires: 09/01/2025 [facility] Work Phone: Comment on above: Expected: 09/01/2024 , Expires: 09/01/2025 Start: 09-01-2024 End: 09-01-2024 Patient encounter procedure 09/01/2024 1:30 PM EST Office Visit Neurology [address] [place] [address] Balaji Beth, SEED BUYER.[employer] [address] [place] [address] three month follow up LORENA Neurology Comment on above: three month follow u p LORENA Start: 07-23-2024 End: 07-23-2024 Patient encounter procedure 07/23/2024 2:00 PM EDT Office Visit Neurology [address] [place] [address] Balaji Beth, SEED BUYER.[employer]ER [employer] [address] [place] [address] three month follow up LORENA Neurology Comment on above: three month follow u p LORENA Start: 05-30-2024 Covid-19 Vaccine ( season) Covid-19 Vaccine ( season) [facility] Start: 05-30-2024 Influenza vaccination C [facility] Start: 04-09-2024 End: 04-09-2024 Patient encounter procedure 04/09/2024 2:30 PM EDT Office Visit Neurology [address] [place] [address] Balaji Beth APRN.[employer] [address] [place] [address] 3 month follow up Neurology Comment on above: 3 month follow up Start: 2023 Screening for malign ant neoplasm of breast Mammogram Screening [facility] Start: 09-29-2023 Behavioral Health Screening Behavioral Health Screening [facility] Start: 05-30-2023 Covid-19 Vaccine () Covid-19 Vaccine () [facility] Start: 05-30-2023 Influenza vaccination C [facility] Start: 03-20-2023 Anesthesia vaginal procedure w/biopsy nos ANESTH VAGINAL PROCEDURES [facility] Start: 03-20-2023 Conization cervix w/ wo d&c rpr eltrd exc CONIZATION OF CERVIX [facility] Start: 03-20-2023 Ambulation without limitation [facility] Start: 03-20-2023 Medical regimen orde rs management [facility] Start: 03-20-2023 Medication education [facility] Start: 03-20-2023 Taking patient vital signs [facility] Start: 03-20-2023 Vital signs measurements [facility] Start: 03-20-2023 [facility] Start: 03-20-2023 Patient discharge [facility] Start: 10-25-2022 End: 12-25-2022 BLOOD TB SCREEN [facility] Work Phone: Comment on above: Expected: 10/25/2022 , Expires: 12/25/2022 Start: 09-29-2022 DEPRESSION ASSESSMENT DEPRESSION ASS ESSMENT [facility] Start: 05-30-2022 Influenza vaccination INFLUENZA (#1) [facility] Start: 08-04-2020 HPV TESTING HPV TESTING [facility] Start: 08-04-2020 PAP TESTING PAP TESTING [facility] Start: 08-04-2020 Screening for malign ant neoplasm of cervix [facility] Start: 06-30-2020 Adult depression screening assessment DEPRESSION SCREENING [facility] Start: 10-27-2019 End: 10-27-2019 Office Visit 10/27/2019 Office Visit Behavioral Health Francesco Claros PA [address] [place] [id number] [phone] [facility] Start: 05-30-2019 Influenza vaccinatio n given INFLUENZA VACCINE (#1) [facility] Start: 10-26-2011 Human papilloma viru s screening PAP SMEAR [facility] Start: 2004 Tetanus, diphtheria and acellular pertussis vaccination TDAP/TD ADULT [facility] Start: 2002 Hepatitis B Vaccine (1 of 3 - 19+ 3-dose series) Hepatitis B Vaccine (1 of 3 - 19+ 3-dose series) [facility] Start: 2002 Urine microalbumin profile [facility] Start: 2001 ANNUAL WELLNESS VISIT ANNUAL WELLNES S VISIT [facility] Start: 2001 Anxiety Screening Anxiety Screening [facility] Start: 2001 Depression Screening Depression Scre ening [facility] Start: 2001 HEPATITIS C SCREENING HEPATITIS C [facility] Start: 2001 Hepatitis C screening Hepatitis C [facility] Start: 2001 HIV SCREENING HIV SCREENING [facility] Start: 2001 HIV screening HIV Screening [facility] Start: 2001 WELLNESS ANNUAL VISIT WELLNESS ANNUA L VISIT [facility] Start: 05-16-1984 COVID-19 VACCINE (#1) COVID-19 VACCI NE (#1) [facility] Start: 1983 HEPATITIS B (1 of 3 - 3-dose series) HEPATITIS B (1 of 3 - 3-dose series) [facility] Start: 1983 Hepatitis B Vaccine (1 of 3 - 3-dose series) Hepatitis B Vaccine (1 of 3 - 3-dose series) [facility] ECG COMPLETE ECG COMPLETE ECG 10/11/2024 10:27 AM EST [facility] Ecg routine ecg w/le ast 12 lds i&r only ECG INTERPRETATION & REPORT ONLY Cardiology Routine On stimulant medication Ordered: 10/11/2024 [facility] Work Phone: Comment on above: Ordered: 10/11/2024 End: 12-10-2023 MAINTENANCE WAKEFULNESS TEST MAINTENANCE WAKEFULNESS TEST Procedures Routine LORENA on CPAP Hypersomnia On stimulant medication 1 Occurrences starting 12/10/2022 until 12/10/2023 [facility] Work Phone: Comment on above: 1 Occurrences starti ng 12/10/2022 until 12/10/2023 Path report.final Dx Spec [facility] Path report.final Dx Spec [facility] Patient referral [facility] Work Phone: TOX SCREEN ROUT UR TOX SCREEN RO UT UR Lab Routine Hypersomnia due to medical condition Ordered: 10/30/2022 [facility] Work Phone: Comment on above: Ordered: 10/30/2022 [facility] Immunizations Immunization Date Immunization Notes Care Provider Sushila hernández 08-28-2016 influenza virus vacc ine, unspecified formulation Tonia Worrell MD Work Phone: [facility] Payers Date Payer Category Payer Self-pay [id number] 2024 Unknown [id number] 2022 Private Health Insurance 2022 Unknown [id number] 2016 Unknown [id number] 2015 Unknown ZAHRA [id number] 2015 Unknown [id number] 2013 Unknown [id number] 1983 Unknown [id number] 2.16. 840.1.281467.3.579.2.627 1983 Unknown [id number] 2.16. 840.1.510620.3.579.2.297 1983 Unknown [id number] 2.16. 840.1.651501.3.579.2.297 1983 Unknown [id number] 2.16. 840.1.701590.3.579.2.297 1983 Unknown [id number] 2.16. 840.1.170567.3.579.2.297 1983 Unknown [id number] 2.16. 840.1.096342.3.579.2.297 1983 Unknown [id number] 2.16. 840.1.555920.3.579.2.297 1983 Unknown [id number] 2.16. 840.1.591481.3.579.2.297 1983 Unknown [id number] 2.16. 840.1.083880.3.579.2.297 1983 Unknown [id number] 2.16. 840.1.228551.3.579.2.297 1983 Unknown [id number] 2.16.8 40.1.418198.3.579.2.651 1983 Unknown [id number] 2.16.8 40.1.519422.3.579.2.651 1983 Unknown [id number] 2.16.8 40.1.932063.3.579.2.651 1983 Unknown [id number] 2.16.8 40.1.003354.3.579.2.651 1983 Unknown [id number] 2.16.8 40.1.053779.3.579.2.651 1983 Unknown [id number] 2.16.8 40.1.816076.3.579.2.651 1983 Unknown [id number] 2.16.8 40.1.204467.3.579.2.651 Private Health Insurance [employer] [id number] Private Health Insurance CIGNA [id number] Unknown [id number] 2.16.8 40.1.090776.3.579.2.462 Unknown [id number] Social History Date Type Detail Facility Start: 08-04-2015 End: 06-30-2019 Tobacco smoking status NHIS Former smoker [facility] Start: 06-30-2019 End: 01-05-2025 Alcohol intake Current drinker of alcohol (finding) [facility] Start: 12-30-[address] [facility] Start: 1985 Sex Assigned At Not on file [facility] History of tobacco use Current smoker [facility] Start: 08-04-2015 Tobacco use and exposure Smokeless tobacco non-user [facility] Start: 08-04-2015 Alcohol Comment occ [facility] Start: 10-11-2022 End: 10-21-2022 Exposure to SARS-CoV-2 (event) Not sure [facility] Start: 1985 Sex Assigned At Female [facility] Start: 03-13-2023 End: 06-04-2023 Tobacco smoking status NHIS Unknown if ever smoked [facility] Start: 10-21-2022 End: 09-01-2024 History of Social function [facility] Start: 10-21-2022 End: 09-01-2024 Tobacco use panel [facility] Adult Depression Screening Assessment 6 [facility] NEGATED: Highlighted row [facility] Goals Date Patient Goal Desired Activity /State Mental Status Date Assessment Result Facility 03-20-2023 Cognitive function Level Of Consciousness Sedated [facility] Work Phone: 03-20-2023 Cognitive function Patient Orien tation Person;Place;Time [facility] Work Phone: Clinical Notes 10-21-2022 to 01-05-2025 Balaji Beth APRN.[employer] - 01/05/2025 1:30 PM EDTTelephone Encounter - Mary ChenEVIE - 10/13/2024 1:22 PM ESTTelephone Encounter - Mary Chen, EVIE - 10/13/2024 1:22 PM EST Note Date & Type Note Facility 01-05-2025 History of Present illness Narrative Images from the original note were not included. [facility] Follow up/ Established patient [...] Armodafinil 250 mg #30 [facility] and [facility]. All prescriptions have been APPROPRIATELY filled. No suspicious activity was identified. 01/05/2025 by Balaji Beth APRN.[employer] Treatment history: Sunosi -- tremors Modafinil -- [...] due to drowsy drivin 08/29/2024 10/05/2024 01/02/2025 [place] Sleepiness Scale Score 20 (Excessive daytime sleepiness [...] graduating from , going to college in [place] at [employer], son is learning to drive). ALLERGIES No [...] overcome the irrepressible need to sleep. 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 - she is up to date on ECG and UTOX Balaji Beth APRN.CNP documented in this encounter [facility] 01-05-2025 Note HNO ID: [id number] Author: BALAJI BETH APRN.CNP Service: ? Author Type: Nurse Practitioner Type: Progress Notes Filed: 01/05/2025 17:17 Note Text: [facility] Disorders [facility] Follow up/ Established patient [...] Armodafinil 250 mg #30 last filled 12/23/24 [facility] website checked and validated. All prescriptions have been APPROPRIATELY filled. No suspicious activity was identified. 01/05/2025 by Balaji Beth APRN.[employer] Treatment history: Sunosi -- tremors Modafinil -- [...] due to drowsy drivin 08/29/2024 10/05/2024 01/02/2025 [place] Sleepiness Scale Score 20 (Excessive daytime sleepiness present) 22 (Excessive daytime sleepiness present) 21 (Excessive daytime sleepiness present) 08/29/2024 10/05/2024 01/02/2025 PROMIS CAT Sleep Disturbance PROMIS Sleep Disturbance T-Score 64 (moderate) 54 (within normal limits) 52 (within normal limits) (more content not included)... [facility] 10-13-2024 Telephone encounter Note Order faxed to [facility]. Patient active MyCShnerglet. Patient notified via Pipewise message. Mary Chen MA [facility] 10-13-2024 Miscellaneous Notes Order faxed to [facility]. Patient active MyChart. Patient notified via Pipewise message. Mary Chen MA Order printed, please fax to Renae and notify pt Balaji Beth APRN.[employer] Order printed for Anabel [facility] for [employer] Balaji Beth APRN.[employer] documented in this encounter [facility] 10-13-2024 Telephone encounter Note Order printed, please fax to Renae and notify pt Baljai Beth APRN.[employer] [facility] 10-13-2024 Telephone encounter Note Order printed for Anabel [facility] for [employer] Balaji Beth APRN.[employer] [facility] 10-11-2024 Instructions Migel King Jr., MD - 10/11/2024 10:21 AM EST Your most recent body mass index (BMI) that we have on record is 30.35. Obstructive sleep apnea (LORENA) worsens with an increase in weight; reduction in weight may improve or resolve your LORENA. If you are not already seeking treatment, there are resources available at the [facility] such as a nutrition consultation or referral to weight management programs at our [facility] [place]. Please let us know if we can assist with a referral. documented in this encounter [facility] 10-11-2024 Note HNO ID: [id number] Author: MIGEL KING JR, MD Service: ? [...] depending on your insurance coverage. Contact your [employer] company for new supplies as needed. - Avoid driving when drowsy. 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 In [...] deep sleep. Snoring (more content not included)... [facility] 10-11-2024 History of Present illness Narrative Images [...] needed. - Avoid driving when drowsy. 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 In [...] comprehension, naming, repetition intact. 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 Fund of knowledge grossly normal [...] which included preparing to see the patient, [id number] patient care, completing clinical documentation, obtaining and/or [...] Migel King MD documented in this encounter [facility] 10-11-2024 Note HNO ID: [id number] Author: FLOYD OAKES LPN Service: ? Author Type: LICENSED NURSE Type: Progress Notes Filed: 10/11/2024 10:21 Note Text: [facility] 09-01-2024 History of Present illness Narrative Images from the original note were not included. [facility] Disorders Center Follow up/ Established patient [...] CPAP - Avoid driving when drowsy. - seat coverer for short naps (20-30 minutes) and use of caffeine if needed to help stay awake when driving. - Try to get at least 7-9 hours of sleep in a 24 hour period. Healthy diet and exercise can also promote better sleep. 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 09/01/2024 by Balaji Beth APRN.[employer] Treatment history: Provigil not effective Nuvigil 2 yrs efficacy waned, couldn't fall asleep at night Adderall xr worsened mood Adderall was stopped due to weight loss Vyvanse tremor L hand was worse 06/04/23 ECG NSR at [place] Latest Reference Range & Units 11/04/22 16:20 [...] sorted in reverse-chronological order 01/04/2024 04/04/2024 08/29/2024 [place] Sleepiness Scale Score 22 (Excessive daytime sleepiness [...] needed. - Avoid driving when drowsy. - seat coverer for short naps (20-30 minutes) and use [...] which included preparing to see the patient, lheb-cr-sorp patient care, completing clinical documentation, performing a medically appropriate examination, counseling and educating the patient/family/caregiver, and ordering medications, tests, or procedures. documented in this encounter [facility] 09-01-2024 Note HNO ID: [id number] Author: BALAJI BETH APRN.CNP Service: ? Author Type: Nurse Practitioner Type: Progress Notes Filed: 09/01/2024 16:05 Note Text: [facility] Sleep Disorders Center Follow up/ Established patient [...] CPAP - Avoid driving when drowsy. - seat coverer for short naps (20-30 minutes) and use of caffeine if needed to help stay awake when driving. - Try to get at least 7-9 hours of sleep in a 24 hour period. Healthy diet and exercise can also promote better sleep. 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 09/01/2024 by Balaji Beth APRN.[employer] Treatment history: Provigil not effective Nuvigil 2 yrs efficacy waned, couldn't fall asleep at night Adderall xr worsened mood Adderall was stopped due to weight loss Vyvanse tremor L hand was worse 06/04/23 ECG NSR at [place] Latest Reference Range AND Units 11/04/22 16:20 [...] sorted in reverse-chronological order 01/04/2024 04/04/2024 08/29/2024 [place] Sleepiness Scale Score 22 (Excessive daytime sleepiness present) 21 (Excessive daytime sleepiness present) 20 (Excessive daytime sleepiness present) 01/04/2024 04/04/2024 08/29/2024 PROMIS CAT Sleep Disturbance PROMIS Sleep Disturbance T-Score 54 (within normal limits) 64 (moderate) 64 (moderate) PROMIS Sleep Disturbance Percentile 34 8 8 07/23/2023 04/04/2024 08/29/2024 Insomnia Severity Index Score 16 16 20 01/04/2024 04/04/2024 08/29/2024 PHQ-9 (more content not included)... [facility] 07-22-2024 Telephone encounter Note RF done PDMP website checked and validated. All prescriptions have been APPROPRIATELY filled. No suspicious activity was identified. 07/22/2024 by Balaji Beth APRN.[employer] [facility] 07-22-2024 Miscellaneous Notes RF done PDMP website checked and validated. All prescriptions have been APPROPRIATELY filled. No suspicious activity was identified. 07/22/2024 by Balaji Beth APRN.[employer] Prescription Refill Information The patient has been [...] CPAP - Avoid driving when drowsy. - seat coverer for short naps (20-30 minutes) and use [...] 2024 10:58 AM documented in this encounter [facility] 07-22-2024 Telephone encounter Note Prescription Refill Information [...] CPAP - Avoid driving when drowsy. - seat coverer for short naps (20-30 minutes) and use [...] [employer] July 22, 2024 10:58 AM [facility] 04-20-2024 Telephone encounter Note Received fax from [facility] that Sunosi was approved from 03/22-09/21. Scanned to chart for reference. UNRULY Cloud [facility] 04-20-2024 Miscellaneous Notes Received fax from [facility] that Sunrachel was approved from 03/22-09/21. Scanned to chart for reference. [employer] Prior authorization started via [employer] portal . Corinne Casas LPN TC to Miriam at number below and line rings busy. No option to leave VM. Please try again later. [employer]UL[employer] SLEEP PHONE Name of caller: Miriam Relationship to patient : [facility] In-state or [id number] patient: In-State Was permission obtained from patient? Yes Patient identified by Name and Date of . ( Jammie Gonzalez, 1985). Yes Reason for Call : Miriam stated she received the prior authorization from [employer]. She stated she would like to received a call back today due to this case being due on Friday. Number to return call [phone] Okay to leave a message ? Yes documented in this encounter [facility] 04-20-2024 Telephone encounter Note Prior authorization started via [employer] portal . Corinne Casas LPN [facility] 04-16-2024 Telephone encounter Note TC to Miriam at number below and line rings busy. No option to leave VM. Please try again later. [employer] [facility] 04-16-2024 Telephone encounter Note SLEEP PHONE Name of caller: Miriam Relationship to patient : [facility] In-state or [id number] patient: [place]-State Was permission obtained from patient? Yes Patient identified by Name and Date of . ( Jammie Gonzalez, 1985). Yes Reason for Call : Miriam stated she received the prior authorization from [facility]. She stated she would like to received a call back today due to this case being due on Friday. Number to return call [phone] Okay to leave a message ? Yes [facility] 04-09-2024 History of Present illness Narrative Images from the original note were not included. [facility] Sleep Disorders Center Follow up/ Established patient [...] needed. - Avoid driving when drowsy. - seat coverer for short naps (20-30 minutes) and use of caffeine if needed to help stay awake when driving. - Try to get at least 7-9 hours of sleep in a 24 hour period. Healthy diet and exercise can also promote better sleep. Kike, we discussed it, she is interested if covered Consider Deloris I'll review her case with Dr Gm Beth, SEED BUYER.[employer] FIEL[employer] Here for follow up for EDS and [...] activity was identified. 04/09/2024 by Balaji Beth APRN.[employer] Treatment history: Provigil not effective Nuvigil 2 [...] due to drowsy drivin 10/05/2023 01/04/2024 04/04/2024 [place] Sleepiness Scale Score 18 (Excessive daytime sleepiness [...] CPAP - Avoid driving when drowsy. - seat coverer for short naps (20-30 minutes) and use of caffeine if needed to help stay awake when driving. - Try to get at least 7-9 hours of sleep in a 24 hour period. Healthy diet and exercise can also promote better sleep. Balaji Beth APRN.TESTER [employer] FIELDS documented in this encounter [facility] 04-02-2024 Telephone encounter Note Images from the original note were not included. [facility] 04-02-2024 Miscellaneous Notes Images from the original note were not included. documented in this encounter [facility] 03-16-2024 Telephone encounter Note Phone call placed spoke [facility] flower Dawn advised that Sunosi must be completed on an additional form found on [employer] website under provider resources, advised our office completed a prior form in addition to [facility] form completed per insurance card. MyChart message sent to patient to update status. Form completed with documentation for provider signature. Britt Aguilar LPN [facility] 03-16-2024 Miscellaneous Notes Phone call placed spoke [facility] flower Dawn advised that Sunosi must be [...] by [facility] cancelled Prior Authorization please contact [facility] [phone]. Phone call placed to [facility] [phone]. Prior Authorization Sunosi 150 mg through [facility], unable to initiate on CoverMyMeds (medication not found) Faxed 10 pages to [facility] [phone]. MyChart message sent to patient. Britt Aguilar LPN documented in this encounter [facility] 03-09-2024 Telephone encounter Note Documentation received from [facility] Sunosi 150 mg not handled by [facility] cancelled Prior Authorization please contact [facility] [phone]. Phone call placed to [facility] [phone]. [facility] 02-27-2024 Telephone encounter Note Prior Authorization Sunosi 150 mg through [facility], unable to initiate on CoverMyMeds (medication not found) Faxed 10 pages to [facility] [phone]. [employer] message sent to patient. Britt Aguilar LPN [facility] 01-19-2024 Telephone encounter Note Summary: increase sunosi dose Rx sent in for 150 mg daily sunosi Balaji Beth APRN.[employer]ELDS [facility] 01-19-2024 Miscellaneous Notes Summary: increase sunosi dose Rx sent in for 150 mg daily sunosi Balaji Beth APRN.KERA documented in this encounter [facility] 01-09-2024 History of Present illness Narrative Images from the original note were not included. [facility] Sleep Disorders Center Follow up/ Established patient [...] the afternoon sleepiness. I'll send her a [employer] msg re that plan--she can tell me via Medx[employer] if that is effective. Made 3 mo [...] activity was identified. 01/09/2024 by Balaji Beth APRN.[employer] Sleep paralysis--last occurred about 9 mos ago, [...] L hand was worse 06/05/23 ECG NSR ([facility]) SLEEP APNEA Sleep apnea type [...] due to drowsy drivin 07/23/2023 10/05/2023 01/04/2024 [place] Sleepiness Scale Score 21 (severe daytime sleepiness) [...] needed. - Avoid driving when drowsy. - seat coverer for short naps (20-30 minutes) and use [...] which included preparing to see the patient, duzz-wu-eimc patient care, completing clinical documentation, obtaining and/or reviewing separately obtained history, performing a medically appropriate examination, counseling and educating the patient/family/caregiver, and communicating with other HCPs (not separately reported). documented in this encounter [facility] 01-02-2024 Miscellaneous Notes Images from the original note were not included. documented in this encounter [facility] 08-06-2023 Miscellaneous Notes SLEEPPASUBMIT Prateek PA has been submitted via [employer] form. Insurance Company Name: [employer] Patient ID number: [id number] Medication: Sunosi Dosage: 75 mg Faxed to [phone] with confirmation received. documented in this encounter [facility] 08-05-2023 Instructions Tonia Worrell MD - 08/05/2023 [...] Renewals ) - Call the office at [phone], option #5 for provider questions. documented in this encounter [facility] 08-05-2023 Miscellaneous Notes Faxed request for copy of ultrasound from [facility] [phone] with confirmation received. documented in this encounter [facility] 08-04-2023 History of Present illness Narrative Images from the original note were not included. [facility] Disorders [facility] Virtual Visit Follow up/ Established patient visit Date of last visit : 05/26/2023 I have communicated my name and active licensure. The patient's identity and physical location were verified at the time of this visit. Either the patient or their legal customer success representative has been informed of the risks and benefits of -- and alternatives to -- treatment through a remote evaluation and consents to proceed with the evaluation remotely. Interval history : Here for follow up for sleep apnea and hypersomnia Is on abilify and prozac for depression- taken at bedtime. Had ECG, cardiology opinion at [facility], per patient ECG was normal Has been [...] or near accidents due to drowsy drivin [place] Sleepiness Scale 10/25/2022 12/05/2022 07/23/2023 Score 20 [...] Shared information aboout wake promoting agents in [employer], will initiate trial once cardiology information reviewed. Trial with solriamfetol 37.5mg for initial 3 days to be increased to 75mg will be considered -details share in [employer]. Side effects include headache, dizziness, difficulty falling asleep or staying asleep, nausea, diarrhea, loss of appetite. - Avoid driving when drowsy. Recommend that if you are dozing off while driving, that you do not drive until your sleepiness is appropriately treated. F/U 2 months Tonia Worrell MD I spent a total of 25 minutes on the date of the service which included preparing to see the patient, kmxi-yk-[id number] patient care, performing a medically appropriate examination, counseling and educating the patient/family/caregiver and ordering medications/devices documented in this encounter [facility] 06-16-2023 Note [facility] Pap Smear Specimen Adequacy June 16, 2023 11:18am Comment . Satisfactory for evaluation. Endocervical and/or squamous metaplasticcells (endocervical component) are present. Comment on above: Satisfactory for valentin luation. Endocervical and/or squamous metaplasticcells (endocervical component) are present. 05-27-2023 Miscellaneous Notes Formattin g of this note might be different from the original. Pipewise message sent documented in this encounter [facility] 05-27-2023 Instructions Tonia Worrell MD - 05/27/2023 [...] idiopathic hypersomnia and other central nervous system (DEVELOPMENT VICE PRESIDENT) hypersomnia disorders can be effectively treated with several types of medications, many of which require frequent monitoring by a healthcare provider. At [facility], we want to ensure [...] more information about the newest treatments, see [email or web address] and [email or web address]. [employer] requires a special prescription referral form [...] they should not be taken with other DEVELOPMENT VICE PRESIDENT depressants including opioid analgesics, benzodiazepines, sedating antidepressants, antipsychotics, sedating anti-seizure medicines, general anesthetics, muscle relaxants, alcohol or street drugs due to the risk of serious medical problems. When taken as prescribed, oxybate salts have lower potential for physical or psychological dependence than stimulant medications. Prescriptions are filed by a specialty pharmacy through the Xyrem/Xywav REMS Program. For more information, see [email or web address] [email or web address] or www.Revolutions [email or web address], respectively. Follow-up with your sleep provider is required every 6 months including one in-person visit per year. This includes an annual visit with your sleep physician and a mid-year visit with a sleep advanced practice provider. Periodic urine and EKG monitoring may be recommended. If you reside outside the state of [place], please discuss follow-up visit and prescription recommendations [...] the central scheduling system for the [facility] [place] at [phone]. - Pipewise offers direct scheduling for patients to schedule [...] Renewals ) - Call the office at [phone], option #5 for provider questions. For any other questions: - Contact your visit provider via Pipewise ( Inbox & Sent Messages then Send a message ) for the quickest response. - Call the office at [phone], option #5 for provider questions. [facility] website: [email or web address] documented in this encounter [facility] 05-26-2023 History of Presen t illness Narrative Images from the original note were not included. [facility] Virtual Visit Follow up/ Established patient visit Date of last visit : 10/21/2022 I have communicated my name and active licensure. The patient's identity and physical location were verified at the time of this visit. Either the patient or their legal customer success representative has been informed of the risks and benefits of -- and alternatives to -- treatment through a remote evaluation and consents to proceed with the evaluation remotely. 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 She noted that [...] (AHI): 0.5 Treatment : PAP therapy DME: [employer] PAP History: Uses AutoPAP for 78% > [...] or near accidents due to drowsy drivin [place] Sleepiness Scale 10/14/2022 10/25/2022 12/05/2022 Score 20 [...] Hypersomnia Severe major depression without psychotic features ([facility]) Ms. Gonzalez, with known history of LORENA [...] which included preparing to see the patient, yybx-os-iaon patient care, performing a medically appropriate examination, counseling and educating the patient/family/caregiver and ordering medications/devices documented in this encounter [facility] 05-19-2023 Miscellaneous Notes Formattin g of this note might be different from the original. Images from the original note were not included. 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 Kimberlee Chavez MD [place] [facility] [place]: [place] [address] History and Physical Date of Admission: 03/20/23 HPI: 37-year-old female with moderate cervical dysplasia plan for loop electrical excisional procedure. Denies headache or vision changes, chest pain or shortness of breath, nausea or vomiting, diarrhea constipation, fevers or chills. PARTS SALES COUNTERPERSON history: G3, P2 spontaneous vaginal deliveries Medical [...] consented. 03/20/23 1157 <Electronically signed by Glenna Mauro DO> Cosigner Signature (if applicable): CC: Dr. Kimberlee Chavez MD; Dr. Glenna Mauro DO~ Signed [facility] Work Phone: [phone]) 568-963106-22-2023 Procedure [facility] 01-03-2023 Miscellaneous Notes* Telephone Encounter - Marah Lopez RN - 01/03/2023 10:05 AM EDT Patient requesting ECG and MWT test orders to [facility]. Called hospital and got direct faxnumbers for each order. ECG order faxed to [phone] and MWT faxed to [phone]. Orders, chart note, demographic and insurance was faxed to both numbers and each fax asked on cover letter to fax results to office with number provided. Amicushart message sent documented in this encounter[facility] Center[facility]23 Miscellaneous Notes* Telephone Encounter - Marah Lopez RN - 12/27/2022 8:27 AM EDT Faxed ECG order to [facility] [phone] with confirmation received. Mapidyt message sent documented in this encounterMain Campus Medical Center03-24-2023 NotePap Smear Specimen AdequacyMarch 2022 1:03pmComment.Satisfactory for evaluation. Endocervical and/or squamous metaplasticcells (endocervical component)are present.[facility] INTERFACED A#[id number] General HospitalComment on above:Satisfactory for evaluation. Endocervical and/or squamous metaplasticcells (endocervical component)are present.12-20-2022 NotePap Smear Specimen AdequacyMarch 2022 1:03pmComment.Satisfactory for evaluation. Endocervical and/or squamous metaplasticcells (endocervical component)are present.[facility] INTERFACED A#[id number] General HospitalComment on above:Satisfactory for evaluation. Endocervical and/or squamous metaplasticcells (endocervical component)are present.12-20-2022 NotePap Smear Specimen AdequacyMarch 2022 1:03pmComment.Satisfactory for evaluation. Endocervical and/or squamous metaplasticcells (endocervical component)are present.[facility] INTERFACED A#[id number] General HospitalComment on above:Satisfactory for evaluation. Endocervical and/or squamous metaplasticcells (endocervical component)are present.12-12-2022 Miscellaneous Notes* Telephone Encounter - Marah Lopez RN - 12/12/2022 7:32 AM EDT Amicushart message sent documented in this encounterMain Campus Medical Center03-14-2023 Instructions* Patient Instructions* Tonia Worrell MD - 12/10/2022 10:28 AM EDT Following up for your Disorder: -ECG requested -Maintenance of wakefulness test requested To schedule your sleep study please call the [facility] at [phone]. The [phone] phone number will be answered by the Lab PSS M-F, 8am-5pm and after 5pm this line will roll to the call center. Symptoms of narcolepsy, idiopathic hypersomnia and other central nervous system (DEVELOPMENT VICE PRESIDENT) hypersomnia disorders can be effectively treated with several types of medications, many of which require frequent monitoring by a healthcare provider. At [facility], we want to ensurethat [...] being prescribed. If you reside outside the [facility] of [place], please discuss follow-up visit and prescription recommendations [...] through the central scheduling system for the [facility] [place] at [phone]. - Pipewise offers direct scheduling for patients to schedule appointments. -Virtual visits are also available. If not covered by your insurance, there is a 35% discount. Please contact your insurance to determine coverage. For refills: - If you are receiving a controlled substance, you will need to see a sleep physician at least onceper year. - In Amicushart ( Medications then Request Renewals ) - Call the office at [phone], option #5 for provider questions. For any other questions: - Contact your visit provider via Pipewise ( Inbox & Sent Messages then Send a message ) for thequickest response. - Call the office at [phone], option #5 for provider questions. [facility] website: [email or web address] Continue PAP Therapy - Continue Auto CPAP [...] treatment, there are resources available at the [facility] such as a nutrition consultation or referral to weight management programs at our [facility] [place]. Please let us know if we can assist with a referral. documented in this encounterMain Campus Medical Center03-13-2023 History of Present illness Narrative* Tonia Worrell MD - 12/09/2022 3:45 PM EDT Images from the original note were not included. [facility] Virtual Visit Follow up/ Established patient visit Date of last visit : October 28, 2022 I have communicated my name and active licensure. The patient's identity and physical location wereverified at the time of this visit. Either the patient or their legal customer success representative has been informed of the risks [...] or near accidents due to drowsy drivin [place] Sleepiness Scale 10/14/2022 10/25/2022 12/05/2022 Score 20 [...] which included preparing to see the patient, xisc-fv-rsfe patient care, performing a medically appropriate examination, counseling and educating the patient/family/caregiver and ordering medications/devices documented in this encounterMain Campus Medical Center03-13-2023 Nurse Note* Luis Antonio Mckenzie - 12/09/2022 3:40 PM EDT Called pt - LVM to inform patient of appointment Luis Antonio Mckenzie CMA documented in this encounterMain Campus Medical Center03-10-2023 Miscellaneous Notes* Telephone Encounter - Tigre Perez MA - 12/06/2022 11:23 AM EST Images from the original note were not included. documented in this encounterMain Campus Medical Center02-24-2023 Miscellaneous Notes* Telephone Encounter - Marah Lopez RN - 11/22/2022 7:29 AM EST Chart notes faxed to Dr. Kimberlee Chavez [phone] with confirmation received. Pipewise message sent documented in this encounterMain Campus Medical Center02-22-2023 Procedure note* Yu Lennon, PhD - 11/20/2022 3:52 PM ESTAssociated Order(s): ACTIGRAPHY TESTING Actigraphy Report Average Bedtime 9:22PM, with a range of 8:07PM to 11:04PM Average Wake time 6:52AM , with a range of 5:59AM to 10:33AM Average Total Sleep Time 8.95 hrs Significant Variability in Sleep-Wake Schedule Yes Naps 11 Average Nap Duration 79 min Circadian Rhythm Appropriate with advanced tendencies. Procedure: Actigraphy (CPT code 12865) Reason for study: excessive daytime sleepiness-no MSLT [...] wakeafter sleep onset , and frequent napping. [place] : Yu Lennon, PhD, [facility] Psychologist ([place] License P.[id number]) Behavioral Sleep Medicine Disclosure: There are limitations of actigraphy data. This test is not a measure of daytime sleepiness or insomnia. Findings may suggest the etiology of sleepiness due to an observed pattern or help in the understanding of patterns associated with conditions being evaluated documented in this encounterMain Campus Medical Center02-03-2023 History of Present illness Narrative* Hayes Gonzalez - 11/01/2022 4:08 PM EST ACTIGRAPHY DEVICE # [id number] Date shipped out 11/01/2022 [employer] MAIL OUT TRACKING NUMBER [phone] [employer] RETURN TRACKING NUMBER [phone] [id number], Tammy documented in this encounterMain Campus Medical Center02-01-2023 Miscellaneous Notes* Telephone Encounter - Marah oLpez RN - 10/30/2022 9:28 AM EST Supply order and chart note faxed to [employer] [phone] with confirmation received. documented in this encounterMain Campus Medical Center01-31-2023 Miscellaneous Notes* Telephone Encounter - Erika Castillo [...] of her chart, but not where the cooling tower technician could grab and complete the order. She states that she was also under the impression that the provider was going to order blood work. Please resubmit urine tox screen order so it will appear in active requests tab in appointment desk for [facility]. Please contact [employer] Help Desk if additional assistance is needed. Patient requesting to be notified when her lab orders are available to be performed. documented in this encounterMain Campus Medical Center01-31-2023 Miscellaneous Notes* Telephone Encounter - Erika Castillo - 10/29/2022 1:21 PM EST Please see attached sleep studies from outside facility from 10/28/22 OV * Telephone Encounter - Ming Villegas - 10/29/2022 7:54 AM EST Received from [facility]. Medical record via fax. 17 pages indexed to chart. * Telephone Encounter - Ming Villegas - 10/22/2022 3:35 PM EST Received from Dr. Naresh Kaplan medical records via fax. 38 pagers indexed to chart. documented in this encounterMain Campus Medical Center01-27-2023 History of Present illness Narrative* Caroline Elder APRN.KERA - 10/25/2022 12:05 PM EST Confirmed with the patient need TB test for work or school. Explained that TB test is done through blood draw and will be contacted by provider when results are available. The patient agrees here to receive TB test. Caroline Elder APRN.TESTER ARMATURE [employer] FIELDS documented in this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
== END | disposition home or self-care (01) ==
LOC: LABSPEC 15:45
PROVIDERS: PCP Internal Medicine; Referring Provider Urology; Visit Provider Urology
DX: N30.10 Interstitial cystitis (chronic) without hematuria (principal)
CPT/HCPCS: 87086; 87088